=== PATIENT | female | born 1965 | race Caucasian/White ===

== ENCOUNTER 2019-09-07 16:10 | Emergency (ER) | payer OTHER, SELFPAY ==
[2019-09-07 16:20] VITALS: BP 136/77; PULSE 88; RESP 20; TEMP 37.1; O2SAT 99
--- NOTE | 2019-09-07 16:23 | ED.URI ---
HPI - URI/Sore Throat General Chief Complaint: Upper Respiratory Infection Stated Complaint: chest cold Time Seen by Provider: 09/07/19 16:23 Source: patient and RN notes reviewed History of Present Illness HPI Narrative: Patient is a 53-year-old female presents the urgent care with complaints of cough, chest cold. Patient states that started 2 days ago and she has a history of pneumonia and asthma. States that she has been using her inhaler and nebulizer as needed. States that the cough is productive brown-yellow. Denies of any fever. States that her grandson was diagnosed with strep and she has been having a sore throat. No other acute complaints. No acute distress noted. Patient read the plan of care. Related Data Home Medications Medication Instructions Recorded Confirmed Bacillus coagulans 10 billion cell 1 cell PO DAILY 07/30/19 09/07/19 capsule,delayed release albuterol sulfate 90 mcg/actuation 1 puff INHALATION Q4H 07/30/19 09/07/19 aerosol inhaler budesonide-formoterol HFA 160 2 puff INHALATION Q12H 07/30/19 09/07/19 mcg-4.5 mcg/actuation aerosol inhaler famotidine 20 mg tablet 20 mg PO DAILY 07/30/19 09/07/19 hydrochlorothiazide 12.5 mg tablet 12.5 mg PO DAILY 07/30/19 09/07/19 montelukast 10 mg tablet 10 mg PO DAILY 07/30/19 09/07/19 terbutaline 5 mg tablet 5 mg PO TID tablet 07/30/19 09/07/19 trazodone 100 mg tablet 100 mg PO .QHS tablet 07/30/19 09/07/19 albuterol sulfate 2.5 mg INHALATION Q4H PRN 09/07/19 09/07/19 atorvastatin 40 mg PO DAILY 09/07/19 09/07/19 azelastine 1 spray INTRANASAL Q12H 09/07/19 09/07/19 budesonide-formoterol [Symbicort] 2 puff INHALATION Q12H 09/07/19 09/07/19 topiramate 25 mg PO DAILY 09/07/19 09/07/19 Allergies Allergy/AdvReac Type Severity Reaction Status Date / Time lorazepam Allergy Unknown Dizziness Verified 09/07/19 16:31 Review of Systems Review of Systems: Narrative: CONSTITUTIONAL: Denies fever, chills, or sweats. EYES: Denies visual changes, redness, or discharge. ENT: Reports of sore throat CARDIOVASCULAR: Denies chest pain, palpitations, or edema. RESPIRATORY: Reports a productive cough with intermittent dyspnea and wheezing GASTROINTESTINAL: Denies abdominal pain, nausea, vomiting, or diarrhea. GENITOURINARY: Denies dysuria or hematuria. SKIN: Denies rash or itching. MUSCULOSKELETAL: Denies back pain, joint pain, or myalgia. NEUROLOGIC: Denies headache, numbness, or weakness. All other systems reviewed are negative, except as documented in HPI. [facility] Past Medical History Medical History (Updated 09/07/19 @ 17:01 by KAMERON Damian) Dysfunction of both eustachian tubes Essential (primary) hypertension MDD (major depressive disorder), recurrent episode, moderate Mild persistent asthma with allergic rhinitis without complication Pollen allergies Psychophysiological insomnia Family History Family History (Updated 09/03/17 @ 14:25 by DOCTOR UNKNOWN) Father Patient's father is , Onset Age: 57 Mother Family history of cardiovascular disease, Onset Age: 56 Social History Social History (Updated 08/03/19 @ 09:41 by Lyubov Hodge) Smoking packs per day: 1.5 Smoking cigarettes per day: 30.0 Years smoked: 5 Smoking pack-years: 7.50 Smoking status: Former smoker Tobacco type: cigarettes Second hand tobacco smoke exposure: No Alcohol intake: never Substance use: never Substance use type: does not use Gender identity (if verbalized by the patient): Female Comments At the time of my signature, I reviewed and agree with the nursing past medical, surgical, social, and family history. There is no relevant family history pertinent to the patient complaint. Exam Narrative: Exam Narrative: GENERAL: This is a well-nourished, well-developed patient, in no apparent distress. HEAD: normocephalic, atraumatic. EYES: PERRL. Sclera clear/white. Vision is grossly intact. EARS: External ear
== END 2019-09-07 17:05 | disposition home or self-care (01) ==
PROVIDERS: Emergency Provider Nurse Practitioner Family; PCP Family Medicine
DX: J40 Bronchitis, not specified as acute or chronic (principal); Z87.891 Personal history of nicotine dependence
CPT/HCPCS: 87081; 87880; 99213; G0463

== ENCOUNTER 2019-09-11 10:50 | Emergency (ER) | payer OTHER, SELFPAY ==
[2019-09-11 10:58] VITALS: BP 124/75; PULSE 71; RESP 20; TEMP 36.6; O2SAT 98
--- NOTE | 2019-09-11 11:21 | ED.URI ---
HPI - URI/Sore Throat General Chief Complaint: Upper Respiratory Infection Stated Complaint: cough Time Seen by Provider: 09/11/19 11:15 Source: patient Mode of arrival: ambulatory Limitations: no limitations History of Present Illness HPI Narrative: Wendi Neal is a 53 yo female with a PMH of HTN, asthma, high cholesterol, who comes to the doctor's office with complaints of continued cough. Afebrile. Was seen here on Saturday Related Data Home Medications Medication Instructions Recorded Confirmed Bacillus coagulans 10 billion cell 1 cell PO DAILY 07/30/19 09/11/19 capsule,delayed release albuterol sulfate 90 mcg/actuation 1 puff INHALATION Q4H 07/30/19 09/11/19 aerosol inhaler budesonide-formoterol HFA 160 2 puff INHALATION Q12H 07/30/19 09/11/19 mcg-4.5 mcg/actuation aerosol inhaler famotidine 20 mg tablet 20 mg PO DAILY 07/30/19 09/11/19 hydrochlorothiazide 12.5 mg tablet 12.5 mg PO DAILY 07/30/19 09/11/19 montelukast 10 mg tablet 10 mg PO DAILY 07/30/19 09/11/19 terbutaline 5 mg tablet 5 mg PO TID tablet 07/30/19 09/11/19 trazodone 100 mg tablet 100 mg PO .QHS tablet 07/30/19 09/11/19 albuterol sulfate 2.5 mg INHALATION Q4H PRN 09/07/19 09/11/19 atorvastatin 40 mg PO DAILY 09/07/19 09/11/19 azelastine 1 spray INTRANASAL Q12H 09/07/19 09/11/19 budesonide-formoterol [Symbicort] 2 puff INHALATION Q12H 09/07/19 09/11/19 topiramate 25 mg PO DAILY 09/07/19 09/11/19 Allergies Allergy/AdvReac Type Severity Reaction Status Date / Time lorazepam Allergy Unknown Dizziness Verified 09/07/19 16:31 Review of Systems Review of Systems: Narrative: CONSTITUTIONAL: Denies fever, chills, sweats. EYES: Denies visual changes, redness, discharge. ENT: Denies rhinorrhea, congestion, sore throat, otalgia. CARDIOVASCULAR: Denies chest pain, palpitations, edema. RESPIRATORY: Denies dyspnea, wheezing, has cough GASTROINTESTINAL: Denies abdominal pain, nausea, vomiting, diarrhea. GENITOURINARY: Denies dysuria, hematuria, abnormal discharge SKIN: Denies rash or itching. NEUROLOGIC: Denies numbness, or focal weakness. PSYCHIATRIC: Denies anxiety or depression. [facility] Past Medical History Medical History Dysfunction of both eustachian tubes Essential (primary) hypertension MDD (major depressive disorder), recurrent episode, moderate Mild persistent asthma with allergic rhinitis without complication Pollen allergies Psychophysiological insomnia Family History Family History Father Patient's father is , Onset Age: 57 Mother Family history of cardiovascular disease, Onset Age: 56 Social History Social History Smoking packs per day: 1.5 Smoking cigarettes per day: 30.0 Years smoked: 5 Smoking pack-years: 7.50 Smoking status: Former smoker Tobacco type: cigarettes Second hand tobacco smoke exposure: No Alcohol intake: never Substance use: never Substance use type: does not use Gender identity (if verbalized by the patient): Female Comments At time of signature, I agree with nursing past medical, surgical, social and family history. There is no relevant family history pertinent to the presenting complaint. Exam Narrative: Exam Narrative: GENERAL: This is a well-nourished, well-developed patient, in mild distress. HEAD: normocephalic, atraumatic. EYES: Sclera clear/white. Vision is grossly intact. EARS: External ears normal, auditory canals clear and without drainage, TMs normal without perforation. Hearing grossly intact. NOSE: External nose normal with no obvious nasal discharge, nares without redness, has rhinorrhea. THROAT: Mucous membranes moist, posterior pharynx mild erythema NECK: Neck supple, non-tender CARDIOVASCULAR: Regular rate and rhythm without murmurs, gallops, or rubs. RESPIR
== END 2019-09-11 11:40 | disposition home or self-care (01) ==
PROVIDERS: Emergency Provider Nurse Practitioner; PCP Family Medicine
DX: J10.1 Influenza due to other identified influenza virus with other respiratory manifestations (principal); Z87.891 Personal history of nicotine dependence; I10 Essential (primary) hypertension; J45.909 Unspecified asthma, uncomplicated; E78.00 Pure hypercholesterolemia, unspecified
CPT/HCPCS: 87804; 99213; G0463

== ENCOUNTER 2020-02-15 10:39 | Outpatient (CLI) | payer OTHER, SELFPAY ==
[2020-02-15 10:54] LABS: Hematocrit 36.2 % (37.0-47.0); Hemoglobin 11.8 g/dL (12.0-15.0); Mean Corpuscular HGB Conc 32.6 g/dl (32-36); Mean Corpuscular Hemoglobin 29.1 pg (26-34); Mean Corpuscular Volume 89.4 fl (80-100); Mean Platelet Volume 10.1 fl (7.4-10.4); Platelet Count Result 403 k/mm3 (150-375); Red Blood Count 4.05 M/mm3 (4.2-5.4); Red Cell Distribution Width 13.1 % (11.5-14.5); White Blood Count 6.8 K/mm3 (4.5-10.0)
[2020-02-15 11:09] LABS: Alanine Aminotransferase 39 U/L (4-35); Albumin Level 4.4 g/dL (3.5-5.1); Alkaline Phosphatase 69 U/L (38-126); Anion Gap 6 mmol/L (8-16); Aspartate Amino Transferase 32 U/L (14-36); Bilirubin,Total 0.2 mg/dL (0.2-1.3); Blood Urea Nitrogen 10 mg/dL (7-17); Calcium 9.2 mg/dL (8.4-10.2); Carbon Dioxide 26 mmol/L (22-30); Chloride 106 mmol/L (98-107); Cholesterol 145 mg/dL (0-200); Estimated Glomerular Filt Rate > 60; Glucose 114 mg/dL (65-105); HDL Direct 66 mg/dL; Potassium 4.2 mmol/L (3.4-5.0); Sodium 138 mmol/L (137-145); Triglycerides 101 mg/dL (<150)
[2020-02-15 11:14] LABS: Hemoglobin A1C 5.7 % (<5.7)
[2020-02-15 11:20] LABS: LDL Cholesterol Direct 53 mg/dL
== END 2020-02-15 10:40 | disposition home or self-care (01) ==
PROVIDERS: PCP Family Medicine; Visit Provider Family Medicine
DX: E78.2 Mixed hyperlipidemia (principal); J45.30 Mild persistent asthma, uncomplicated; I10 Essential (primary) hypertension; E66.01 Morbid (severe) obesity due to excess calories; Z68.41 Body mass index [BMI] 40.0-44.9, adult; Z13.1 Encounter for screening for diabetes mellitus
CPT/HCPCS: 36415; 80053; 80061; 83036; 85027

== ENCOUNTER 2020-03-25 13:22 | Emergency (ER) | payer OTHER, SELFPAY ==
[2020-03-25 13:27] VITALS: BP 145/74; PULSE 75; RESP 14; TEMP 36.6; O2SAT 97
--- NOTE | 2020-03-25 13:31 | ED.URI ---
HPI - URI/Sore Throat General Chief Complaint: Upper Respiratory Infection Stated Complaint: sore throat/chest congestion Time Seen by Provider: 03/25/20 13:31 Source: patient and RN notes reviewed History of Present Illness HPI Narrative: Patient is a 54-year-old female who presents the urgent care with complaints of a sore throat that started on Saturday. Patient states that today she now has a clear productive cough and runny nose. Patient denies any fever, chills, nausea, vomiting. States that she has been doing salt water gargles for the sore throat. No other acute complaints. No acute distress noted. Patient aware of the plan of care. Patient Related Data Home Medications Medication Instructions Recorded Confirmed albuterol sulfate 90 mcg/actuation 1 puff INHALATION Q4H 07/30/19 02/15/20 aerosol inhaler Allergies Allergy/AdvReac Type Severity Reaction Status Date / Time lorazepam Allergy Unknown Dizziness Verified 03/25/20 13:34 Review of Systems Review of Systems: Narrative: CONSTITUTIONAL: Denies fever, chills, or sweats. EYES: Denies visual changes, redness, or discharge. ENT: Reports of sore throat and rhinorrhea CARDIOVASCULAR: Denies chest pain, palpitations, or edema. RESPIRATORY: Reports a clear productive cough GASTROINTESTINAL: Denies abdominal pain, nausea, vomiting, or diarrhea. GENITOURINARY: Denies dysuria or hematuria. SKIN: Denies rash or itching. MUSCULOSKELETAL: Denies back pain, joint pain, or myalgia. NEUROLOGIC: Denies headache, numbness, or weakness. All other systems reviewed are negative, except as documented in HPI. [facility] Social History Social History (Updated 02/15/20 @ 09:40 by Lyubov Hodge) Social History: Smoking packs per day: 1.5 Smoking cigarettes per day: 30.0 Years smoked: 5 Smoking pack-years: 7.50 Smoking status: Former smoker Tobacco type: cigarettes Second hand tobacco smoke exposure: No Alcohol intake: never Substance use: never Substance use type: does not use Gender identity (if verbalized by the patient): Female Comments At the time of my signature, I reviewed and agree with the nursing past medical, surgical, social, and family history. There is no relevant family history pertinent to the patient complaint. Exam Narrative: Exam Narrative: GENERAL: This is a well-nourished, well-developed patient, in no apparent distress. HEAD: normocephalic, atraumatic. EYES: PERRL. Sclera clear/white. Vision is grossly intact. EARS: External ears normal, auditory canals clear and without drainage, TMs normal without perforation. Hearing grossly intact. NOSE: External nose normal with no obvious nasal discharge, nares without redness, no rhinorrhea. THROAT: Mucous membranes moist, posterior pharynx clear. Moderate postnasal drainage NECK: Neck supple, CARDIOVASCULAR: Regular rate and rhythm without murmurs, gallops, or rubs. RESPIRATORY: Clear to auscultation. Breath sounds equal bilaterally. No wheezes, rales, or rhonchi. SKIN: warm, intact with no suspicious lesions or rash, good texture and turgor. NEURO: awake, alert, and oriented to person, place and time. There were no obvious focal neurologic abnormalities. EXTREMITIES: No clubbing, cyanosis, or edema. Course Vital Signs Vital signs: Vital Signs Temperature 97.8 F 03/25/20 13:27 Pulse Rate 75 03/25/20 13:27 Respiratory Rate 14 03/25/20 13:27 Blood Pressure 145/74 H 03/25/20 13:27 Pulse Oximetry 97 03/25/20 13:27 Temperature 97.8 F 03/25/20 13:27 Pulse Rate 75 03/25/20 13:27 Respiratory Rate 14 03/25/20 13:27 Blood Pressure 145/74 H 03/25/20 13:27 Pulse Oximetry 97 03/25/20 13:27 Reviewed-patient is informed that they may have pre-hypertension or hypertension based on a blood pressure reading in the department. I recommend the patient call the primary care provider listed on their discharge instructions or a physician of their cho
== END 2020-03-25 13:50 | disposition home or self-care (01) ==
PROVIDERS: Emergency Provider Nurse Practitioner Family; PCP Family Medicine
DX: J02.9 Acute pharyngitis, unspecified (principal); Z87.891 Personal history of nicotine dependence; I10 Essential (primary) hypertension; J45.909 Unspecified asthma, uncomplicated; K21.9 Gastro-esophageal reflux disease without esophagitis; F41.9 Anxiety disorder, unspecified
CPT/HCPCS: 87081; 87880; 99213; G0463

== ENCOUNTER 2020-05-30 13:47 | Emergency (ER) | payer OTHER, SELFPAY ==
--- NOTE | ~2020-05-30 | XR_ITS ---
EXAMINATION: XR chest 1V portable DATE: 05/30/2020 15:04 INDICATION: Shortness of breath. COVID-19 positive. TECHNIQUE: A single frontal view of the chest was obtained. COMPARISON: Chest 2 views 08/03/2019 FINDINGS: There is mild atelectasis at left lung base. No pleural effusion or pneumothorax. The heart size is normal. IMPRESSION: 1. Mild atelectasis at left lung base. Reviewed, dictated and finalized at location A. [facility] LINE SERVICE ATTENDANT
[2020-05-30 13:50] VITALS: BP 144/76; PULSE 86; RESP 18; TEMP 36.9; O2SAT 97
--- NOTE | 2020-05-30 13:54 | ECG_ITS ---
Measurements Intervals [place] Rate: 76 P: 22 UT: 174 QRS: -22 QRSD: 91 T: 37 QT: 370 QTc: 417 Interpretive Statements SINUS RHYTHM VOLTAGE CRITERIA FOR LVH BORDERLINE R WAVE PROGRESSION, ANTERIOR LEADS BORDERLINE ECG Electronically Signed On 05-30-2020 14:09:24 [employer]GET[employer] I [employer] by Sage Prajapati D.O.
[2020-05-30 14:21] LABS: Basophils Percent Auto 0.3 % (0.2-1.2); Hematocrit 36.6 % (37.0-47.0); Hemoglobin 12.1 g/dL (12.0-15.0); Immature Granulocyte Absolute 0.02 K/mm3 (0.00-0.031); Immature Granulocyte Percent A 0.3 % (0-0.5); Lymphocytes Absolute Auto 0.69 K/mm3 (0.9-3.2); Lymphocytes Percent Auto 10.2 % (18.3-44.2); Mean Corpuscular HGB Conc 33.1 g/dl (32-36); Mean Corpuscular Hemoglobin 29.1 pg (26-34); Mean Platelet Volume 9.7 fl (7.4-10.4); Monocytes Absolute Auto 0.2 K/mm3 (0.1-0.6); Monocytes Percent Auto 2.5 % (2.6-8.5); Neutrophils Absolute Auto 5.8 K/mm3 (1.3-6.7); Neutrophils Percent Auto 86.7 % (45.5-73.1); Platelet Count Result 433 k/mm3 (150-375); Red Blood Count 4.16 M/mm3 (4.2-5.4); Red Cell Distribution Width 13.9 % (11.5-14.5); White Blood Count 6.7 K/mm3 (4.5-10.0)
[2020-05-30 14:31] VITALS: BP 158/99; PULSE 83; RESP 20; O2SAT 94
[2020-05-30 14:35] LABS: Anion Gap 11 mmol/L (8-16); Blood Urea Nitrogen 12 mg/dL (7-17); Calcium 9.3 mg/dL (8.4-10.2); Carbon Dioxide 26 mmol/L (22-30); Chloride 103 mmol/L (98-107); Estimated CRCL calculation 78 ml/min; Estimated Glomerular Filt Rate > 60; Glucose 158 mg/dL (65-105); Potassium 4.3 mmol/L (3.4-5.0); Sodium 140 mmol/L (137-145)
[2020-05-30] MEDS: SODIUM CHLORIDE 0.9% IV 1,000 ML 999 ML IV CONT (15:04)
--- NOTE | 2020-05-30 15:08 | ED.GENADULT ---
HPI - General Adult General Chief complaint: Shortness of Breath/Dyspnea <Brenden Dupree PA-C - Last Filed: 05/30/20 16:29> Stated complaint: SOB, COVID Positive <Brenden Dupree PA-C - Last Filed: 05/30/20 16:29> Time Seen by Provider: 05/30/20 14:27 <Brenden Dupree PA-C - Last Filed: 05/30/20 16:29> Source: patient <Brenden Dupree PA-C - Last Filed: 05/30/20 16:29> Mode of arrival: ambulatory <Brenden Dupree PA-C - Last Filed: 05/30/20 16:29> Limitations: no limitations <Brenden Dupree PA-C - Last Filed: 05/30/20 16:29> History of Present Illness HPI narrative: Patient is a 54-year-old female who presents with shortness of breath weakness noting that she has been Covid positive for 2 weeks patient notes that she completed a Z-Silver and has been taking other medications with minimal improvement patient notes she has had some nausea but denies emesis or loose stools history of asthma presents in no distress appears uncomfortable does note some aching pain across the chest <Brenden Dupree PA-C - Last Filed: 05/30/20 16:29> Related Data Home medications: Home Medications Medication Instructions Recorded Confirmed albuterol sulfate 90 mcg/actuation 1 puff INHALATION Q4H 07/30/19 03/25/20 aerosol inhaler <Brenden Dupree PA-C - Last Filed: 05/30/20 16:29> Allergies/adverse reactions: Allergies Allergy/AdvReac Type Severity Reaction Status Date / Time lorazepam Allergy Unknown Dizziness Verified 03/25/20 13:34 <Brenden Dupree PA-C - Last Filed: 05/30/20 16:29> Review of Systems Review of Systems: All systems reviewed & are unremarkable except as noted in HPI and below <Brenden Dupree PA-C - Last Filed: 05/30/20 16:29> PMFSH Past Medical History Medical History: Medical History (Updated 05/30/20 @ 16:19 by Brenden Dupree PA-C) Dysfunction of both eustachian tubes Essential (primary) hypertension MDD (major depressive disorder), recurrent episode, moderate Mild persistent asthma with allergic rhinitis without complication Pollen allergies Psychophysiological insomnia <Brenden Dupree PA-C - Last Filed: 05/30/20 16:29> Family History Family History: Family History Father Patient's father is , Onset Age: 57 Mother Family history of cardiovascular disease, Onset Age: 56 <Brenden Dupree PA-C - Last Filed: 05/30/20 16:29> Social History Social History: Social History Social History: Smoking packs per day: 1.5 Smoking cigarettes per day: 30.0 Years smoked: 5 Smoking pack-years: 7.50 Smoking status: Former smoker Tobacco type: cigarettes Second hand tobacco smoke exposure: No Alcohol intake: never Substance use: never Substance use type: does not use Gender identity (if verbalized by the patient): Female <Brenden Dupree PA-C - Last Filed: 05/30/20 16:29> Exam Narrative: Exam Narrative: GENERAL: Well-appearing, well-nourished, and in no acute distress. HEAD: Normocephalic, atraumatic. EYES: PERRLA and EOMI. ENT: Nares clear, no rhinorrhea or epistaxis. Mucous membranes moist. CHEST: Clear to auscultation. No respiratory distress. Slight crackles in the lung bases HEART: Regular rate and rhythm. No murmur heard. Normal peripheral pulses. EXTREMITIES: Normal range of motion. No edema. SKIN: Warm, dry, no rash. NEURO: No focal deficits. Alert and oriented x3. PSYCH: Normal mood and affect. <Brenden Dupree PA-C - Last Filed: 05/30/20 16:29> Course Course Emergency Course: Patient in the room in no distress aware of case findings treatment plan diagnosis was treated in the emergency department to include fluid and steroid will be discharged home has inhaler no pneumonia no hypoxemia ABCs stable Case discussed wit
[2020-05-30 15:32] LABS: INR 0.9; Prothrombin Time 12.4 Seconds (11.1-14.7)
[2020-05-30 15:33] LABS: Partial Thromboplastin Time 25.9 SECONDS (22.3-36.8)
[2020-05-30 15:38] LABS: D Dimer 0.27 ug/mL (<0.48)
[2020-05-30 15:40] LABS: Troponin I < 0.012 ng/mL (0.000-0.034)
[2020-05-30 16:27] VITALS: BP 144/81; PULSE 78; RESP 18
[2020-05-30] MEDS: DEXAMETHASONE SOD PHOS INJ 4 MG/ML VIAL 10 MG IV PUSH (16:27)
== END 2020-05-30 17:21 | disposition home or self-care (01) ==
PROVIDERS: Emergency Medicine; Emergency Medicine Emergency Medical Services; Emergency Provider Emergency Medicine
DX: U07.1 COVID-19 (principal); I10 Essential (primary) hypertension; Z87.891 Personal history of nicotine dependence; J45.30 Mild persistent asthma, uncomplicated; R94.31 Abnormal electrocardiogram [ECG] [EKG]
CPT/HCPCS: 36415; 71045; 80048; 84484; 85025; 85380; 85610; 85730; 93005; 96361; 96374; 99284; J1100; J7030

== ENCOUNTER 2022-10-14 11:39 | Emergency (ER) | payer OTHER, MEDICAID, SELFPAY ==
[2022-10-14 11:46] VITALS: BP 113/91; PULSE 86; RESP 20; TEMP 36.8; O2SAT 99
[2022-10-14 12:02] LABS: Appearance Urine Clear (Clear); Bacteria Urine None Seen /hpf; Bilirubin Urine Negative (Negative); Blood Urine Negative (Negative); Color Urine Dark Yellow (Yellow); Glucose Urine UA Negative (Negative); Ketones Urine Negative (Negative); Leukocyte Esterase Ur 1+ LEU/UL (Negative); Need Manual Microscopic Reviewed; Nitrate Urine Negative (Negative); Protein Urine 1+ mg/dL (Negative); Specific Grav Ur 1.023 (1.001-1.035); Squamous Epithelial Cell Urine None seen /hpf (Few)
[2022-10-14 12:11] LABS: Add Urine Microscopic? YES
--- NOTE | 2022-10-14 13:07 | ED.FEMALEGU ---
HPI - Female Genitourinary General Chief complaint: Urogenital-Female Stated complaint: urinary symptoms Time Seen by Provider: 10/14/22 12:19 Source: patient Mode of arrival: ambulatory Limitations: no limitations History of Present Illness HPI Narrative: 56 years old white female drove herself to the emergency room complaining of bleeding when wiping and burning when peeing. Patient been using Monistat at home for 1 week without improvement. Patient reported brown vaginal discharge with severe itching. History of hysterectomy, , not sexually active for months. MD elicited complaint: dysuria, UTI and genital itching Related Data Home Medications Medication Instructions Recorded Confirmed albuterol sulfate 90 mcg/actuation 1 puff inhalation Q4H 07/30/19 03/25/20 aerosol inhaler (ProAir HFA) Allergies Allergy/AdvReac Type Severity Reaction Status Date / Time lorazepam Allergy Unknown Dizziness Verified 10/14/22 11:51 Review of Systems Review of Systems: All systems reviewed & are unremarkable except as noted in HPI and below PMFSH Past Medical History Medical History Dysfunction of both eustachian tubes Essential (primary) hypertension MDD (major depressive disorder), recurrent episode, moderate Mild persistent asthma with allergic rhinitis without complication Pollen allergies Psychophysiological insomnia Family History Family History Father Patient's father is , Onset Age: 57 Mother Family history of cardiovascular disease, Onset Age: 56 Social History Social History Social History: Smoking packs per day: 1.5 Smoking cigarettes per day: 30.0 Years smoked: 5 Smoking pack-years: 7.50 Smoking status: Former smoker Tobacco type: cigarettes Second hand tobacco smoke exposure: No Alcohol intake: never Substance use: never Substance use type: does not use Living arrangements: with family Occupation/Education: occupation Gender identity (if verbalized by the patient): Female Sexual Orientation (if Verbalized by the Patient): Straight or Heterosexual Exam Narrative: General appearance: Well-developed, well-nourished Skin: Normal color Chest and respiratory: Airway patent, no respiratory distress, no accessory muscle use Heart: Regular rate/rhythm Abdomen: Soft, nontender, no organomegaly, quiet bowel sounds Neurologic: Alert and oriented ?3, PRACTICE NURSE is normal as tested, no gross motor deficit : Speculum Exam - Vagina: abnormal vaginal discharge (Whitish discharge) white and clear Speculum Exam - Cervix: Cervical os closed ( status post hysterectomy) Course Reevaluation(s) Reevaluation #1: No new changes Date: 10/14/22 Time: 13:45 Vital Signs Vital signs: Vital Signs Temperature 36.8 C 10/14/22 11:46 Pulse Rate 86 10/14/22 11:46 Respiratory Rate 20 10/14/22 11:46 Blood Pressure 113/91 H 10/14/22 11:46 Pulse Oximetry 99 10/14/22 11:46 Oxygen Delivery Room Air 10/14/22 11:46 Temperature 36.8 C 10/14/22 11:46 Pulse Rate 86 10/14/22 11:46 Respiratory Rate 20 10/14/22 11:46 Blood Pressure 113/91 H 10/14/22 11:46 Pulse Oximetry 99 10/14/22 11:46 Oxygen Delivery Room Air 10/14/22 11:46 MDM - Female Genitourinary MDM Narrative Medical decision making narrative: Patient presents with itching, abnormal discharge, whitish, grayish, history of hysterectomy, not sexually active, burning urination. Differential diagnosis i
== END 2022-10-14 13:55 | disposition home or self-care (01) ==
PROVIDERS: Emergency Medicine; Emergency Provider Emergency Medicine; PCP Physician Assistant
DX: N39.0 Urinary tract infection, site not specified (principal); N89.8 Other specified noninflammatory disorders of vagina; I10 Essential (primary) hypertension; J45.30 Mild persistent asthma, uncomplicated; Z79.51 Long term (current) use of inhaled steroids; F33.1 Major depressive disorder, recurrent, moderate; Z87.891 Personal history of nicotine dependence
CPT/HCPCS: 81001; 87086; 87088; 99283

== ENCOUNTER 2024-08-06 17:13 | Emergency (ER) | payer OTHER, SELFPAY ==
--- OUTSIDE RECORDS SUMMARY | 2024-08-06 17:15 | XMS_ITS | Encounter Summary ---
Author Organization [facility] Address [address] [facility] [address] Phone Care Team Providers Care Master Deputy Sheriff Court Security Name Role Phone Kiera Salinas PAC Primary Care Pro vider Susanna Ba SHOE COVERER, MANAGER JAVA Unavailable Reason for Referral * Radiology Services (Routine) - Closed Specialty Diagnoses / Procedures Referred By Suha talavera Referred To Contact Radiology Diagnoses Pre-op testing Procedures XR CHEST 2 VIEWS Sebastian Cadena MD [address] [place] [address] Phone: tel: fax: Referral ID Status Reason Start Date Expiration Date Visits Re quested Visits Authorized [id number] Closed 10/08/2023 1 1 * Radiology Services (Routine) - Closed Specialty Diagnoses / Procedures Referred By Suha talavera Referred To Contact Radiology Diagnoses Pre-op testing Procedures EKG 12 LEAD Sebastian Cadena MD [address] [place] [address] Phone: tel: fax: Referral ID Status Reason Start Date Expiration Date Visits Re quested Visits Authorized [id number] Closed 10/08/2023 1 1 Encounter Details Date Type Department Care Team (Latest Contact Info) Description 10/08/2023 Transcribe Orders [facility] Preop/Pacu II [address] [place] [address] Sebastian Cadena MD [address] [place] [address] Pre-op testing (Primary Dx) Social History Tobacco Use Types Packs/Day Years Used Date Smoking Tobacco: Former Cigarettes 0.5 7 Passive Smoke Exposure: Past Smokeless Tobacco: Never Comments:30 yrs ago Alcohol Use Standard Drinks/Week Comments No 0 (1 standard drink = 0.6 oz pur e alcohol) Personal Choice [facility] Utilities Answer Date Recorded In the past 12 months has [employer], gas, oil, or water company threatened to shut off services in your home? No 09/16/2023 Social Connection and Isolat ion Panel [NHANES] Answer Date Recorded In a typical week, how many times do you talk on the phone with family, friends, or neighbors? More than three times a week 09/16/2023 How often do you get togethe r with friends or relatives? More than three times a week 09/16/2023 How often do you attend chur ch or muslim services? More than 4 times per year 09/16/2023 Do you belong to any clubs o r organizations such as yarsani groups, unions, fraternal or athletic groups, or school groups? Yes 09/16/2023 How often do you attend meet ings of the clubs or organizations you belong to? More than 4 times per year 09/16/2023 Are you , , di vorced, , never , or living with a partner? 09/16/2023 AUDIT-C Answer Date Recorded Q1: How often do you have a drink containing alc ohol? 2-4 times a month 09/16/2023 Q2: How many drinks containi ng alcohol do you have on a typical day when you are drinking? 1 or 2 09/16/2023 Q3: How often do you have si x or more drinks on one occasion? Less than monthly 09/16/2023 Overall Financial Resource Strain (CARDIA) Answe r Date Recorded How hard is it for you to pa y for the very basics like food, housing, medical care, and heating? Not very hard 09/16/2023 PHQ-2 Answer Date Recorded Total Score - Questions 1-9 15 07/2022 [facility] - Occupational Stress Questionnaire Answer Date Recorded Do you feel stress - tense, restless, nervous, or anxious, or unable to sleep at night because your mind is troubled all the time - these days? To some extent 09/16/2023 Exercise Vital Sign Answer Date Recorde d On average, how many days pe r week do you engage in moderate to strenuous exercise (like a brisk walk)? 3 days 09/16/2023 On average, how many minutes do you engage in exercise at this level? 50 min 09/16/2023 Hunger Vital Sign Answer Date Recorded Within the past 12 months, y ou worried that your food would run out before you got the money to buy more. Never true 09/16/19 24 Within the past 12 months, t he food you bought just didn't last and you didn't have money to get more. Never true 09/16/2023 PRAPARE - Transportation Answer Date Re corded In the past 12 months, has l ack of transportation kept you from medical appointments or from getting medications? No 09/05 In the past 12 months, has l ack of transportation kept you from meetings, work, or from getting things needed for daily living? No 09/16/2023 Housing Stability Vital Sign Answer Dustin e Recorded In the last 12 months, was t here a time when you were not able to pay the mortgage or rent on time? No 09/16/2023 In the last 12 months, how many places have you lived? 2 09/16/2023 In the last 12 months, was t here a time when you did not have a steady place to sleep or slept in a penitentiary (including now)? No 09/16/2023 Education Answer Date Recorded What is the highest level of school you have completed or the highest degree you have received? 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 Author I want to work through my grief for my . Behavioral Health Improving(09/2022 11:11 AM CDT) Yes Tamika Madison, THELMA Note: Goal/Objective: Improve coping with grief related issues. Anticipated Time Frame for Goal Completion: 5 months Goal Reviewed with: patient Readiness to change: Ready to change Department associated with goal: [facility] Steps to achieve goal: 1. will attend at least 6 counseling sessions either individual and/or group 1x/mo, engaging in each session by verbalizing and processing thoughts and feelings related to grief and loss. 2. will report reduced feelings of guilt and resentment. 3. will identify and implement at least two outlets for grief and or coping skills to aid in managing problematic responses to grief. documented as of this encounter Results * XR CHEST 2 VIEWS (10/24/2023 12:49 PM CDT) Anatomical Region Laterality Modality Chest N/A Digital Radiogra phy 10/25/2023 8:48 AM CDT Impressions 10/25/2023 8:51 AM CDT IMPRESSION: No acute cardiopulmonary abnormality. Narrative 10/25/2023 8:51 AM CDT EXAM DESCRIPTION: XR CHEST 2 VIEWS REASON FOR STUDY: pre op shoulder. asthma. no chest surgery, nonsmoker ?? TECHNIQUE: PA and lateral ??radiographic view(s) of the chest. COMPARISON: 05/29/2022, 01/10/2022 FINDINGS: LUNGS: ??No focal consolidation. ??No effusion or pneumothorax. ?? HEART/MEDIASTINUM: ??Cardiac silhouette normal in size. Mediastinal and hilar contours appear normal. LINES/TUBES: ??None. BONES: ??Degenerative changes. ??No acute process. THIS IS AN ELECTRONICALLY VERIFIED FINAL REPORT 10/25/2023 8:48 AM - Electronically signed by ??Shauna Kimbrough M.D. TW: TW D: ??10/25/2023 8:48 AM T: ??10/25/2023 8:48 AM Report ID: [id number] Reading Location: ??[id number] Procedure Note Shauna Kimbrough MD - 10/25/2023 EXAM DESCRIPTION: XR CHEST 2 VIEWS REASON FOR STUDY: pre op shoulder. asthma. no chest surgery, nonsmoker TECHNIQUE: PA and lateral radiographic view(s) of the chest. COMPARISON: 05/29/2022, 01/10/2022 FINDINGS: LUNGS: No focal consolidation. No effusion or pneumothorax. HEART/MEDIASTINUM: Cardiac silhouette normal in size. Mediastinal and hilar contours appear normal. LINES/TUBES: None. BONES: Degenerative changes. No acute process. THIS IS AN ELECTRONICALLY VERIFIED FINAL REPORT 10/25/2023 8:48 AM - Electronically signed by Shauna Kimbrough M.D. TW: Report ID: [id number] Reading Location: [id number] IMPRESSION: No acute cardiopulmonary abnormality. Sebastian Cadena MD IMG DIAGNOSTIC ORDERABLES Final Result * EKG 12 LEAD (10/24/2023 12:30 PM CDT) Ventricular Rate 69 BPM EXTERNAL EKG Atrial Rate 69 BPM EXTERNAL EKG P-R Interval 168 ms EXTERNAL EKG QRS Duration 84 ms EXTERNAL EKG Q-T Duration 400 ms EXTERNAL EKG QTC CALCULATION 428 ms EXTERNAL EKG P Arnett 3 degrees EXTERNAL EKG R Arnett -4 degrees EXTERNAL EKG T Arnett 50 degrees EXTERNAL EKG 10/24/2023 12:3 0 PM CDT Impressions EXTERNAL EKG - 10/24/2023 6:20 PM CDT Normal sinus rhythm Normal ECG When compared with ECG of 10-JAN-2022 17:02, No significant change was found ~ Confirmed by Lupillo Snell ([id number]) on 10/24/2023 6:20:19 PM Narrative Procedure Note Lupillo Snell MD - 10/24/2023 IMPRESSION: Normal sinus rhythm Normal ECG When compared with ECG of 10-JAN-2022 17:02, No significant change was found ~ Confirmed by Lupillo Snell ([id number]) on 10/24/2023 6:20:19 PM us Sebastian Cadena MD IMG ECG ORDERABLES Final Result EXTERNAL EKG documented in this encounter Visit Diagnoses Diagnosis Pre-op testing- Primary Preoperative examination, unspecified Pre-op testing Preoperative examination, unspecified Pre-op testing Preoperative examination, unspecified documented in this encounter Additional Health Concerns Infection Onset Date Last Indicated Resolved Time Respiratory Rule-Out 10/15/2023 10/15/2023 024 1:49 PM CDT COVID - 19 10/15/2023 10/15/2023 10/15/2023 1:48 PM CDT Respiratory Rule-Out 05/21/2024 05/21/2024 024 12:52 PM CERAMICS TECHNICIAN COVID - 19 05/21/2024 05/21/2024 05/21/2024 12:5 1 PM CERAMICS TECHNICIAN COVID - 19 05/28/2024 05/28/2024 05/28/2024 3:25 PM CERAMICS TECHNICIAN Assessment Noted Time PHQ-9 Depression Total Score: 15 023 11:00 AM CERAMICS TECHNICIAN documented as of this encounter Care Teams Master Deputy Sheriff Court Security Relationship Specialty Start Date End Date Kiera Salinas, RL [address] [place] [address] PCP - General Physician Architectural Intern 08/23/21 Susanna Ba APRN, MANAGER JAVA [address] [place] [address] Nurse Practitioner Advanced Practice Nurse 12/24/22 documented as of this encounter
--- OUTSIDE RECORDS SUMMARY | 2024-08-06 17:15 | XMS_ITS | Encounter Summary ---
Author Organization [facility] Address [address] [place] [address] Phone Care Team Providers Care Material Processor Name Role Phone Francie Cherry MD Primary Care Provider [phone] Kiera Salinas PAC Primary Care Pro vider Susanna Ba APRN, STONEMASON APPRENTICE Unavailable Reason for Visit * Reason Comments Medication Refill Encounter Details Date Type Department Care Team (Late st Contact Info) Description 05/14/[address] [facility] - Primary Care - [place] [address] [place] [address] Francie Cherry MD [address] [place] [address] Medication Refill Social History Tobacco Use Types Packs/Day Years Used Date Smoking Tobacco: Former Cigarettes 0.5 7 Smokeless Tobacco: Never Comments:30 yrs ago Alcohol Use Standard Drinks/Week Comments No 0 (1 standard drink = 0.6 oz pur e alcohol) Sexually Active Control Partners Comments Not Currently Comments No Sex and Gender Information Value Date Recorded Sex Assigned at Not on file Legal Sex Female 8:59 PM CDT Gender Identity Not on file Sexual Orientation Not on file 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 No / Unsure 05/01/2021 2:43 PM CDT documented as of this encounter Miscellaneous Notes * Telephone Encounter - Danette Hays RN - 05/15/2021 10:44 AM CST Medication failed the protocol, provider to review and approve the medication order if appropriate. Requested Prescriptions Pending Prescriptions Disp Refills fenofibrate (TRICOR) 145 MG Tablet [Pharmacy Med Name: FENOFIBRATE 145 MG TABLET] 90 Tablet 0 Sig: TAKE 1 TABLET BY MOUTH EVERY DAY Fibrates Protocol Failed - 05/14/2021 6:54 AM Failed - Lipid panel in past 12 months LDL Date Value Ref Range Status 01/02/2021 107 0 - 130 mg/dL Final Passed - Visit with relevant provider in past 12 months or upcoming 90 days Recent Visits Date Type Provider Dept 01/03/21 Office Visit Francie Cherry MD [facility] 10/27/20 Office Visit Francie Cherry MD [facility] 09/16/20 Telemedicine Rashida Bullock APRN, CNP [facility] 07/05/20 Office Visit Brandon White MD [facility] Showing recent visits within past 365 days and meeting all other requirements Future Appointments Date Type Provider Dept 06/09/21 Appointment Lab, [facility] 06/16/21 Appointment Francie Cherry MD [facility] Showing future appointments within next 90 days and meeting all other requirements O REPAIR TEACHER documented in this encounter Plan of Treatment Not on file documented as of this encounter Visit Diagnoses Diagnosis Hyperlipidemia, unspecified hyperlipidemia type documented in this encounter Additional Health Concerns Infection Onset Date Last Indicated Resolved Time COVID - 19 04/24/2021 05/26/2021 06/15/2021 12:1 6 AM RADIO REPAIR TEACHER COVID - 08/14/2021 08/14/2021 09/03/2021 12:1 6 AM RADIO REPAIR TEACHER COVID - 19 09/26/2021 09/27/2021 10/17/2021 12:1 6 AM CDT COVID - 19 12/20/2021 12/20/2021 12/30/2021 12:1 6 AM CDT COVID - 19 05/24/2022 05/29/2022 06/08/2022 12:1 8 AM RADIO REPAIR TEACHER COVID - 19 07/12/2022 07/12/2022 07/22/2022 12:1 7 AM RADIO REPAIR TEACHER Respiratory Rule Out - RPA 01/14/2023 01/14/2023 0 01/14/2023 1:43 PM CDT COVID - 19 Confirmed 01/14/2023 01/14/2023 023 12:16 AM CDT Respiratory Rule-Out 10/15/2023 10/15/2023 024 1:49 PM CDT COVID - 19 10/15/2023 10/15/2023 10/15/2023 1:48 PM CDT Respiratory Rule-Out 05/21/2024 05/21/2024 024 12:52 PM RADIO REPAIR TEACHER COVID - 19 05/21/2024 05/21/2024 05/21/2024 12:5 1 PM RADIO REPAIR TEACHER COVID - 19 05/28/2024 05/28/2024 05/28/2024 3:25 PM RADIO REPAIR TEACHER documented as of this encounter Care Teams Material Processor Relationship Specialty Start Date End Date Francie Cherry MD [address] [place] [address] PCP - General Family Medicine 10/27/20 08/22/21 Kiera Salinas PAC [address] [place] [address] PCP - General Physician Twister Tender 08/23/21 Susanna Ba APRN, STONEMASON APPRENTICE [address] [place] [address] Nurse Practitioner Advanced Practice Nurse 12/24/22 documented as of this encounter
--- OUTSIDE RECORDS SUMMARY | 2024-08-06 17:15 | XMS_ITS | Encounter Summary ---
Author Organization [facility] Address [address] [place] [address] Phone Care Team Providers Care Supervisor Audit Clerks Name Role Phone Francie Cherry MD Primary Care Provider [phone] Kiera Salinas PAC Primary Care Pro vider Susanna Ba APRN, PARTS TECHNICIAN Unavailable Reason for Visit * Reason Comments Medication Refill Encounter Details Date Type Department Care Team (Late st Contact Info) Description 04/20/2021 Refill [facility] - Primary Care - [place] [address] [place] [address] Francie Cherry MD [address] [place] [address] Medication Refill Social History Tobacco Use Types Packs/Day Years Used Date Smoking Tobacco: Former Smokeless Tobacco: Never Alcohol Use Standard Drinks/Week Comments No 0 [...] on file documented as of this encounter Miscellaneous Notes * Telephone Encounter - Leesa Washington RN - 04/20/2021 10:32 AM CDT Patient requesting refill on hydrochlorothiazide. documented in this encounter Plan of Treatment Not on file documented as of this encounter Visit Diagnoses Diagnosis Anxiety Anxiety state, unspecified Essential hypertension Unspecified essential hypertension Seasonal allergies Allergic rhinitis, cause unspecified documented in this encounter Additional Health Concerns Infection Onset Date Last Indicated Resolved Time COVID - 19 04/24/2021 05/26/2021 06/15/2021 12:1 6 AM POTTERY MACHINE OPERATOR COVID - 19 08/14/2021 08/14/2021 09/03/2021 12:1 6 AM POTTERY MACHINE OPERATOR COVID - 19 09/26/2021 09/27/2021 10/17/2021 12:1 6 AM CDT COVID - 19 12/20/2021 12/20/2021 12/30/2021 12:1 6 AM CDT COVID - 19 05/24/2022 05/29/2022 06/08/2022 12:1 8 AM POTTERY MACHINE OPERATOR COVID - 19 07/12/2022 07/12/2022 07/22/2022 12:1 7 AM POTTERY MACHINE OPERATOR Respiratory Rule Out - RPA 01/14/2023 01/14/2023 0 01/14/2023 1:43 PM CDT COVID - 19 Confirmed 01/14/2023 01/14/2023 023 12:16 AM CDT Respiratory Rule-Out 10/15/2023 10/15/2023 024 1:49 PM CDT COVID - 19 10/15/2023 10/15/2023 10/15/2023 1:48 PM CDT Respiratory Rule-Out 05/21/2024 05/21/2024 024 12:52 PM POTTERY MACHINE OPERATOR COVID - 19 05/21/2024 05/21/2024 05/21/2024 12:5 1 PM POTTERY MACHINE OPERATOR COVID - 19 05/28/2024 05/28/2024 05/28/2024 3:25 PM POTTERY MACHINE OPERATOR documented as of this encounter Care Teams Supervisor Audit Clerks Relationship Specialty Start Date End Date Francie Cherry MD [address] [place] [address] PCP - General Family Medicine 10/27/20 08/22/21 Kiera Salinas, [facility] [address] [place] [address] PCP - General Physician Soft Top Installer 08/23/21 Susanna Ba APRN, PARTS TECHNICIAN [address] [place] [address] Nurse Practitioner Advanced Practice Nurse 12/24/22 documented as of this encounter
--- OUTSIDE RECORDS SUMMARY | 2024-08-06 17:15 | XMS_ITS | Encounter Summary ---
Author Organization [facility] Address [address] [place] [address] Phone Care Team Providers Care Batch Heat Treat Operator Name Role Phone Francie Cherry MD Primary Care Provider [phone] Kiera Salinas PAC Primary Care Pro vider Susanna Ba APRN, GOLD LAYER Unavailable Reason for Visit * Reason Comments Medication Refill Encounter Details Date Type Department Care Team (Late st Contact Info) Description 02/13/2021 Refill [facility] - Primary Care - [place] [address] [place] [address] Francie Cherry MD [address] [place] [address] Medication Refill Social History Tobacco [...] have Coronavirus / COVID-19? No / Unsure 01/20/2021 10:03 AM CDT documented as of this encounter Miscellaneous Notes * Telephone Encounter - Danette Hays RN - 02/13/2021 10:07 AM CDT Medication failed the protocol, provider to review and approve the medication order if appropriate. Requested Prescriptions Pending Prescriptions Disp Refills fenofibrate (TRICOR) 145 MG Tablet [Pharmacy Med Name: FENOFIBRATE 145 MG TABLET] 90 Tablet 0 Sig: TAKE 1 TABLET BY MOUTH EVERY DAY Fibrates Protocol Failed - 02/13/2021 10:07 AM Failed - Lipid panel in past 12 months LDL Date Value Ref Range Status 01/02/2021 107 0 - 130 mg/dL Final Passed - Visit with relevant provider in past 12 months or upcoming 90 days Recent Visits Date Type Provider Dept 01/03/21 Office Visit Francie Cherry MD [facility] 10/27/20 Office Visit Francie Cherry MD [facility] 09/16/20 Telemedicine Rashida Bullokc APN, TOM[facility] 07/05/20 Office Visit Brandon White MD [facility] Showing recent visits within past 365 days and meeting all other requirements Future Appointments No visits were found meeting these conditions. Showing future appointments within next 90 days and meeting all other requirements documented in this encounter Plan of Treatment Not on file documented as of this encounter Visit Diagnoses Diagnosis Hyperlipidemia, unspecified hyperlipidemia type documented in this encounter Additional Health Concerns Infection Onset Date Last Indicated Resolved Time COVID - 19 04/24/2021 05/26/2021 06/15/2021 12:1 6 AM DIMENSIONAL INSPECTOR COVID - 19 08/14/2021 08/14/2021 09/03/2021 12:1 6 AM DIMENSIONAL INSPECTOR COVID - 19 09/26/2021 09/27/2021 10/17/2021 12:1 6 AM CDT COVID - 19 12/20/2021 12/20/2021 12/30/2021 12:1 6 AM CDT COVID - 19 05/24/2022 05/29/2022 06/08/2022 12:1 8 AM DIMENSIONAL INSPECTOR COVID - 19 07/12/2022 07/12/2022 07/22/2022 12:1 7 AM DIMENSIONAL INSPECTOR Respiratory Rule Out - RPA 01/14/2023 01/14/2023 0 01/14/2023 1:43 PM CDT COVID - 19 Confirmed 01/14/2023 01/14/2023 023 12:16 AM CDT Respiratory Rule-Out 10/15/2023 10/15/2023 024 1:49 PM CDT COVID - 19 10/15/2023 10/15/2023 10/15/2023 1:48 PM CDT Respiratory Rule-Out 05/21/2024 05/21/2024 024 12:52 PM DIMENSIONAL INSPECTOR COVID - 19 05/21/2024 05/21/2024 05/21/2024 12:5 1 PM DIMENSIONAL INSPECTOR COVID - 19 05/28/2024 05/28/2024 05/28/2024 3:25 PM DIMENSIONAL INSPECTOR documented as of this encounter Care Teams Batch Heat Treat Operator Relationship Specialty Start Date End Date Francie Cherry MD [address] [place] [address] PCP - General Family Medicine 10/27/20 08/22/21 Kiera Salinas, RL [address] [place] [address] PCP - General Physician Door Installer 08/23/21 Susanna Ba APRN, GOLD LAYER [address] [place] [address] Nurse Practitioner Advanced Practice Nurse 12/24/22 documented as of this encounter
--- OUTSIDE RECORDS SUMMARY | 2024-08-06 17:16 | XMS_ITS | Encounter Summary ---
Author Organization [facility] Address [address] [place] [address] Phone Care Team Providers Care Pasting Machine Offbearer Name Role Phone Kiera Salinas PAC Primary Care Pro vider Susanna Ba APRN, BLADE CHANGER Unavailable Reason for Visit * Reason Comments Medication Refill Encounter Details Date Type Department Care Team (Late st Contact Info) Description 05/31/2023 Refill [facility] - Primary Care - [place] [address] [place] [address] Kiera Salnias, PAC [address] [facility] [place] [address] Medication Refill Social History Tobacco Use Types Packs/Day Years Used Date Smoking Tobacco: Former Cigarettes 0.5 7 Smokeless Tobacco: Never Comments:30 yrs ago Alcohol Use Standard Drinks/Week Comments No 0 (1 standard drink = 0.6 oz pur e alcohol) Personal Choice PHQ-2 Answer Date Recorded Total Score - Questions 1-9 15 07/2022 Education Answer Date Recorded What is the [...] encounter Miscellaneous Notes * Telephone Encounter - Tameka Archibald RN - 06/03/2023 8:58 AM CST Medication failed the protocol, provider to review and approve the medication order if appropriate. Requested Prescriptions Pending Prescriptions Disp Refills sertraline (ZOLOFT) 50 MG Tablet [Pharmacy Med Name: SERTRALINE HCL 50 MG TABLET] 90 Tablet 0 Sig: TAKE 1 TABLET BY MOUTH EVERY DAY SSRI (6 Month Refill Only) Protocol Failed - 05/31/2023 4:34 PM Failed - Has an encounter in the past 6 months with a depression, anxiety, adjustment disorder, OCD, or PTSD visit diagnosis Passed - Visit with relevant provider in past 6 months or upcoming 90 days Recent Visits Date Type Provider Dept 05/21/23 Office Visit Kiera Salinas PAC [facility] 05/20/23 Appointment Kiera Salinas PAC [facility] 01/14/23 Office Visit Kiera Salinas PAC [facility] Showing recent visits within past 182 days and meeting all other requirements Future Appointments No visits were found meeting these conditions. Showing future appointments within next 90 days and meeting all other requirements Passed - Patient has established therapy with SSRI for at least 6 months Refused Prescriptions Disp Refills escitalopram (LEXAPRO) 10 MG Tablet [Pharmacy Med Name: ESCITALOPRAM 10 MG TABLET] 90 Tablet 0 Sig: TAKE 1 TABLET BY MOUTH EVERY DAY SSRI (6 Month Refill Only) Protocol Failed - 05/31/2023 4:34 PM Failed - Active on medication list Failed - Has an encounter in the past 6 months with a depression, anxiety, adjustment disorder, OCD, or PTSD visit diagnosis Passed - Visit with relevant provider in past 6 months or upcoming 90 days Recent Visits Date Type Provider Dept 05/21/23 Office Visit Kiera Salinas PAC [facility] 05/20/23 Appointment Kiera Salinas PAC [facility] 01/14/23 Office Visit BradKiera romero Madhavi, PAC [facility] Showing recent visits within past 182 days and meeting all other requirements Future Appointments No visits were found meeting these conditions. Showing future appointments within next 90 days and meeting all other requirements Passed - Patient has established therapy with SSRI for at least 6 months ECUTTER ASSISTANT documented in this encounter Plan of Treatment Not on file documented as of this encounter Goals Goal Patient Goal Type Associated Problems Recent Progress Patient-Stated? Author I want to work through my grief for my . Behavioral Health Improving(09/2022 11:11 AM CDT) Yes Tamika Madison LCSW Note: Goal/Objective: Improve coping with grief related issues. Anticipated Time Frame for Goal Completion: 5 months Goal Reviewed with: patient Readiness to change: Ready to change Department associated with goal: [facility] Steps to achieve goal: [...] to grief. documented as of this encounter Visit Diagnoses Not on filedocumented in this encounter Additional Health Concerns Infection Onset Date Last Indicated Resolved Time Respiratory Rule-Out 10/15/2023 10/15/2023 024 1:49 PM CDT COVID - 19 10/15/2023 10/15/2023 10/15/2023 1:48 PM CDT Respiratory Rule-Out 05/21/2024 05/21/2024 024 12:52 PM STONECUTTER ASSISTANT COVID - 19 05/21/2024 05/21/2024 05/21/2024 12:5 1 PM STONECUTTER ASSISTANT COVID - 19 05/28/2024 05/28/2024 05/28/2024 3:25 PM STONECUTTER ASSISTANT Assessment Noted Time PHQ-9 Depression Total Score: 15 023 11:00 AM STONECUTTER ASSISTANT documented as of this encounter Care Teams Pasting Machine Offbearer Relationship Specialty Start Date End Date Kiera Salinas, RL [address] [place] [place] [address] PCP - General Physician Fiscal Specialist 08/23/21 Susanna Ba APRN, BLADE CHANGER [address] [place] [address] Nurse Practitioner Advanced Practice Nurse 12/24/22 documented as of this encounter
--- OUTSIDE RECORDS SUMMARY | 2024-08-06 17:16 | XMS_ITS | Encounter Summary ---
Author Organization [facility] Address [address] [facility] [place] [address] Phone Care Team Providers Care Welcome Center Attendant Name Role Phone Kiera Salinas PAC Primary Care Pro vider Susanna Ba APRN, INDUSTRIAL MAINTENANCE REPAIRER HELPER Unavailable Reason for Visit * Reason Comments Medication Refill Encounter Details Date Type Department Care Team (Late st Contact Info) Description 10/01/2022 [facility]ill [facility] - [place] [address] [place] [address] Ciara Moe, PAC [address] [place] [address] Medication Refill Social History Tobacco Use Types [...] Exposure Response Date Recorded In the last 10 days, have yo u been in contact with someone who was confirmed or suspected to have Coronavirus/COVID-19? No / Unsure 09/21/2022 10:26 AM CDT documented as of this encounter Miscellaneous Notes * Telephone Encounter - Leesa Washington RN - 10/01/2022 12:53 PM CDT Discontinued 09/14/22-dose adjustment. documented in this encounter Plan of Treatment [...] Ready to change Department associated with goal: [facility] Steps to achieve goal: [...] Onset Date Last Indicated Resolved Time Respiratory Rule Out - RPA 01/14/2023 01/14/2023 0 01/14/2023 1:43 PM CDT COVID - 19 Confirmed 01/14/2023 01/14/2023 07/ 023 12:16 AM CDT Respiratory Rule-Out 10/15/2023 10/15/2023 024 1:49 PM CDT COVID - 19 10/15/2023 10/15/2023 10/15/2023 1:48 PM CDT Respiratory Rule-Out 05/21/2024 05/21/2024 024 12:52 PM LATIN AMERICAN STUDIES PROFESSOR COVID - 05/21/2024 05/21/2024 05/21/2024 12:5 1 PM LATIN AMERICAN STUDIES PROFESSOR COVID - 05/28/2024 05/28/2024 05/28/2024 3:25 PM LATIN AMERICAN STUDIES PROFESSOR Assessment Noted Time PHQ-9 Depression Total Score: 15 023 11:00 AM LATIN AMERICAN STUDIES PROFESSOR documented as of this encounter Care Teams Welcome Center Attendant Relationship Specialty Start Date End Date Kiera Salinas, [facility] [address] [place] [address] PCP - General Physician Communications Department Head 08/23/21 Susanna Ba APRN, INDUSTRIAL MAINTENANCE REPAIRER HELPER [address] [place] [address] Nurse Practitioner Advanced Practice Nurse 12/24/22 documented as of this encounter
--- OUTSIDE RECORDS SUMMARY | 2024-08-06 17:16 | XMS_ITS | Encounter Summary ---
Author Organization [facility] Address [address] [place] [address] Phone Care Team Providers Care Executive Vice President And Chief Financial Officer Name Role Phone Kiera Salinas PAC Primary Care Pro vider Susanna Ba APRN, JOURNEYMAN PLUMBER Unavailable Reason for Visit * Reason Comments Medication Refill Encounter Details Date Type Department Care Team (Late st Contact Info) Description 11/09/2022 Refill [facility] - Internal Medicine - [place] [address] [place] [address] Kiera Salinas, PAC [address] [facility] [address] Medication Refill Social History Tobacco [...] suspected to have Coronavirus/COVID-19? No / Unsure 10/15/2022 9:33 AM CDT documented as of this encounter Miscellaneous Notes * Telephone Encounter - Tameka Archibald RN - 11/09/2022 12:57 PM CDT Medication failed the protocol, provider to review and approve the medication order if appropriate. Requested Prescriptions Pending Prescriptions Disp Refills sertraline (ZOLOFT) 50 MG Tablet [Pharmacy Med Name: SERTRALINE HCL 50 MG TABLET] 30 Tablet 1 Sig: TAKE 1 TABLET BY MOUTH EVERY DAY SSRI (6 Month Refill Only) Protocol Failed - 11/09/2022 12:31 PM Failed - Patient has established therapy with SSRI for at least 6 months Passed - Visit with relevant provider in past 6 months or upcoming 90 days Recent Visits Date Type Provider Dept 10/15/22 Office Visit Kiera Salinas PAC [facility] [place] 09/14/22 Office Visit Kiera Salinas PAC [facility] [place] 08/08/22 Office Visit Kiera Salinas PAC [facility] [place] 07/18/22 Office Visit Kiera Salinas PAC [facility] [place] 05/24/22 Office Visit Kiera Salinas PAC [facility] [place] Showing recent visits within past 182 days and meeting all other requirements Future Appointments Date Type Provider Dept 01/14/23 Appointment Kiera Salinas PAC [facility] [place] Showing future appointments within next 90 days and meeting all other requirements Passed - Has an encounter in the past 6 months with a depression, anxiety, adjustment disorder, OCD, or PTSD visit diagnosis documented in this encounter Plan of Treatment [...] Ready to change Department associated with goal: [facility] Steps to achieve goal: [...] Respiratory Rule-Out 05/21/2024 05/21/2024 024 12:52 PM DAM OPERATOR COVID - 19 05/21/2024 05/21/2024 05/21/2024 12:5 1 PM DAM OPERATOR COVID - 19 05/28/2024 05/28/2024 05/28/2024 3:25 PM DAM OPERATOR Assessment Noted Time PHQ-9 Depression Total Score: 15 023 11:00 AM DAM OPERATOR documented as of this encounter Care Teams Executive Vice President And Chief Financial Officer Relationship Specialty Start Date End Date Kiera Salinas, PAC [address] [place] [address] PCP - General Physician Proof Coin Collector 08/23/21 Susanna Ba APRN, JOURNEYMAN PLUMBER [address] [place] [address] Nurse Practitioner Advanced Practice Nurse 12/24/22 documented as of this encounter
--- OUTSIDE RECORDS SUMMARY | 2024-08-06 17:16 | XMS_ITS | Encounter Summary ---
Author Organization [facility] Address [address] [place] [address] Care Team Providers Care New Product Trainer Name Role Phone Kiera Salinas Primary Care Prov ider Adrianne Lyles Unavailable [phone] Encounter Details Date Type Department Care Team (Late st Contact Info) Description 08/05/2024 Telephone [facility] Orthopedics and Sports Medicine [address] [facility] [address] [place] [address] Mau Moralez MD [address] [place] [address] [facility] [address] [place] [address] Social History Tobacco Use Types Packs/Day Years Used Date Smoking Tobacco: Never Smokeless Tobacco: Never AUDIT-C Answer Date Recorded Q1: How often do you have a drink containing alc ohol? 2-4 times a month 02/25/2024 Q2: How many drinks containi ng alcohol do you have on a typical day when you are drinking? 3 or 4 02/25/2024 Frequency of Binge Drinking Not on file 02/06 Personal Safety Answer Date Recorded Have you ever been in or are you currently in a harmful physical or emotional relationship or is someone making you feel afraid or unsafe? Denies 03/03/2024 Comments No Sex and Gender Information Value Date Recorded Sex Assigned at Not on file Legal Sex Female 2:51 AM LOFTER Gender Identity Not on file Sexual Orientation Not on file documented as of this encounter Miscellaneous Notes * Telephone Encounter - Adrianne Swann - 08/05/2024 10:02 AM CST Patient called to say within the last week week her rt shoulder has been hurting . No injury No popping noise Anytime she moves it , it hurts. Rt reverse total dos 03/03/24 I used your same day on 08/12/24.(Patient wanted to be seen in [place]) ER documented in this encounter Plan of Treatment Not on file documented as of this encounter Visit Diagnoses Not on filedocumented in this encounter Care Teams New Product Trainer Relationship Specialty Start Date End Date Kiera Salinas PA PCP - General Neurosurgery 11/08/23 Adrianne Lyles PA [address] [place] [address] [address] [address] Physician Sand Cutting Machine Operator Orthopedic Surgery 03/03/24 documented as of this encounter
--- OUTSIDE RECORDS SUMMARY | 2024-08-06 17:16 | XMS_ITS | Encounter Summary ---
Author Organization [facility] Address [address] [facility] [place] [address] Phone Care Team Providers Care Numerical Control Operator Name Role Phone Kiera Salinas PAC Primary Care Pro vider Susanna Ba APRN, INTEGRITY ANALYST Unavailable Reason for Visit * Reason Comments Medication Refill Encounter Details Date Type Department Care Team (Late st Contact Info) Description 06/21/2022 Refill [facility] - Primary Care - [place] [address] [place] [address] Kiera Salinas, PAC [address] [place] [address] Medication Refill Social History Tobacco Use Types Packs/Day Years Used Date Smoking Tobacco: Former Cigarettes 0.5 7 Smokeless Tobacco: Never Comments:30 yrs ago Alcohol Use Standard Drinks/Week Comments No 0 (1 standard drink = 0.6 oz pur e alcohol) PHQ-2 Answer Date Recorded Total Score - Questions 1-9 3 08/08 Sexually Active Control Partners Comments Not Currently [...] Recorded In the last 10 days, have carmen u been in contact with someone who was confirmed or suspected to have Coronavirus/COVID-19? No / Unsure 05/29/2022 12:57 PM COAL CHUTE WORKER documented as of this encounter Miscellaneous Notes * Telephone Encounter - Susanna Padron RN - 06/21/2022 4:59 PM CST Medication failed the protocol, provider to review and approve the medication order if appropriate. Requested Prescriptions Pending Prescriptions Disp Refills FLUoxetine (PROzac) 10 MG Tablet [Pharmacy Med Name: FLUOXETINE HCL 10 MG TABLET] 90 Tablet 1 Sig: TAKE 1 TABLET BY MOUTH EVERY DAY SSRI (6 Month Refill Only) Protocol Failed - 06/21/2022 4:51 PM Failed - Has an encounter in the past 6 months with a depression, anxiety, adjustment disorder, OCD, or PTSD visit diagnosis Passed - Visit with relevant provider in past 6 months or upcoming 90 days Recent Visits Date Type Provider Dept 05/24/22 Office Visit Kiera Salinas, RL [facility] [place] Showing recent visits within past 182 days and meeting all other requirements Future Appointments No visits were found meeting these conditions. Showing future appointments within next 90 days and meeting all other requirements Passed - Patient has established therapy with SSRI for at least 6 months busPIRone (BUSPAR) 10 MG Tablet [Pharmacy Med Name: BUSPIRONE HCL 10 MG TABLET] 60 Tablet 0 Sig: TAKE 1 TABLET BY MOUTH TWICE A DAY Buspirone (6 Month Refill Only) Protocol Failed - 06/21/2022 4:51 PM Failed - Has an encounter in the past 6 months with a depression or anxiety visit diagnosis Failed - Patient has established therapy with Buspirone for at least 6 months Passed - Visit with relevant provider in past 6 months or upcoming 90 days Recent Visits Date Type Provider Dept 05/24/22 Office Visit Kiera Salinas, RL [facility] [place] Showing recent visits within past 182 days and meeting all other requirements Future Appointments No visits were found meeting these conditions. Showing future appointments within next 90 days and meeting all other requirements traZODone (DESYREL) 100 MG Tablet [Pharmacy Med Name: TRAZODONE 100 MG TABLET] 90 Tablet 1 Sig: TAKE 1 TABLET BY MOUTH EVERY DAY AT NIGHT Serotonin Modulators (6 Month Refill Only) Protocol Failed - 06/21/2022 4:51 PM Failed - Has an encounter in the past 6 months with a depression or anxiety visit diagnosis Passed - Visit with relevant provider in past 6 months or upcoming 90 days Recent Visits Date Type Provider Dept 05/24/22 Office Visit Kiera Salinas PAC [facility] [place] Showing recent visits within past 182 days and meeting all other requirements Future Appointments No visits were found meeting these conditions. Showing future appointments within next 90 days and meeting all other requirements Passed - No PRN Use for Trazodone Passed - Patient has established therapy with Serotonin Modulators for at least 6 months hydroCHLOROthiazide 12.5 MG Tablet [Pharmacy Med Name: HYDROCHLOROTHIAZIDE 12.5 MG TB] 90 Tablet 1 Sig: TAKE 1 TABLET BY MOUTH EVERY DAY Diuretics Protocol Passed - 06/21/2022 4:51 PM Passed - Serum potassium on record in past 12 months POTASSIUM Date Value Ref Range Status 01/10/2022 3.8 3.5 - 5.1 mmol/L Final Passed - Serum sodium on record in past 12 months SODIUM Date Value Ref Range Status 01/10/2022 136 136 - 144 mmol/L Final Passed - Blood pressure on record in past 12 months Clinician-entered: BP Readings from Last 3 Encounters: 05/29/22 (!) 156/91 05/24/22 120/82 01/10/22 119/71 Patient-entered: No data recorded Passed - Visit with relevant provider in past 12 months or upcoming 90 days Recent Visits Date Type Provider Dept 05/24/22 Office Visit [facility] [place] 12/20/21 Office Visit Kiera Salinas PAC [facility] [place] 08/23/21 Office Visit Kiera Salinas PAC [facility] [place] 08/14/21 Office Visit Francie Cherry MD [facility] Showing recent visits within past 365 days and meeting all other requirements Future Appointments No visits were found meeting these conditions. Showing future appointments within next 90 days and meeting all other requirements Passed - GFR on record in past 12 months GFR, EST. NONAFRICAN Date Value Ref Range Status 01/10/2022 >60 >=60 Final CHUTE WORKER documented in this encounter Plan of Treatment Not on file documented as of this encounter Visit Diagnoses Diagnosis Anxiety Anxiety state, unspecified Insomnia, unspecified type Essential hypertension Unspecified essential hypertension documented in this encounter Additional Health Concerns Infection Onset Date Last Indicated Resolved Time COVID - 19 07/12/2022 07/12/2022 07/22/2022 12:1 7 AM COAL CHUTE WORKER Respiratory Rule Out - RPA 01/14/2023 01/14/2023 0 01/14/2023 1:43 PM CDT COVID - 19 Confirmed 01/14/2023 01/14/2023 023 12:16 AM CDT Respiratory Rule-Out 10/15/2023 10/15/2023 024 1:49 PM CDT COVID - 19 10/15/2023 10/15/2023 10/15/2023 1:48 PM CDT Respiratory Rule-Out 05/21/2024 05/21/2024 024 12:52 PM COAL CHUTE WORKER COVID - 19 05/21/2024 05/21/2024 05/21/2024 12:5 1 PM COAL CHUTE WORKER COVID - 19 05/28/2024 05/28/2024 05/28/2024 3:25 PM COAL CHUTE WORKER Assessment Noted Time PHQ-9 Depression Total Score: 3 08/23/19 22 8:00 AM COAL CHUTE WORKER documented as of this encounter Care Teams Numerical Control Operator Relationship Specialty Start Date End Date Kiera Salinas PAC [address] [place] [address] PCP - General Physician Textile Coating Machine Operator 08/23/21 Susanna Ba PATTERN FINISHER, INTEGRITY ANALYST [address] [place] [address] Nurse Practitioner Advanced Practice Nurse 12/24/22 documented as of this encounter
--- OUTSIDE RECORDS SUMMARY | 2024-08-06 17:16 | XMS_ITS | Encounter Summary ---
Author Organization [facility] Address [address] [place] [address] Phone Care Team Providers Care Pediatric Pathologist Name Role Phone Kiera Salinas PAC Primary Care Pro vider Susanna Ba APRN, BLIND EYELETTER Unavailable Reason for Visit * Reason Comments Medication Refill Encounter Details Date Type Department Care Team (Late st Contact Info) Description 02/19/2023 Refill [facility] - Primary Care - [place] [address] [place] [address] Kiera Salinas, PAC [address] [facility] [facility] [place] [address] Medication Refill Social History Tobacco [...] Telephone Encounter - Tameka Archibald RN - 02/19/2023 9:00 AM CDT Medication failed the protocol, provider to review and approve the medication order if appropriate. Requested Prescriptions Pending Prescriptions Disp Refills fenofibrate (TRICOR) 145 MG Tablet [Pharmacy Med Name: FENOFIBRATE 145 MG TABLET] 90 Tablet 0 Sig: TAKE 1 TABLET BY MOUTH EVERY DAY Fibrates Protocol Failed - 02/19/2023 12:01 AM Failed - Lipid panel in past 12 months LDL Date Value Ref Range Status 01/10/2022 91 5 - 130 mg/dL Final HDL CHOLESTEROL Date Value Ref Range Status 01/10/2022 58.4 >40 mg/dL Final CHOLESTEROL Date Value Ref Range Status 01/10/2022 197 <=200 mg/dL Final TRIGLYCERIDES Date Value Ref Range Status 01/10/2022 240 (H) <150 mg/dL Final VLDL Date Value Ref Range Status 01/10/2022 48 5 - 55 mg/dL Final CHOL/HDL RATIO Date Value Ref Range Status 01/10/2022 3.4 0.0 - 4.4 Final NON-HDL CHOLESTEROL Date Value Ref Range Status 01/10/2022 138.6 (H) <130 mg/dL Final Passed - Visit with relevant provider in past 12 months or upcoming 90 days Recent Visits Date Type Provider Dept 01/14/23 Office Visit Kiera Salinas, PAC [facility] 10/15/22 Office Visit iKera Salinas, PAC [facility] 09/14/22 Office Visit Kiera Salinas, PAC [facility] 08/08/22 Office Visit Kiera Salinas, PAC [facility] 07/18/22 Office Visit Kiera Salinas, PAC [facility] 05/24/22 Office Visit Kiera Salinas, PAC [facility] Showing recent visits within past 365 days [...] Improving(09/2022 11:11 AM CDT) Yes Tamika Madison, VIDEO SYSTEMS ENGINEER Note: Goal/Objective: Improve coping with grief related issues. Anticipated Time Frame for Goal Completion: 5 months Goal Reviewed with: patient Readiness to change: Ready to change Department associated with goal: [facility] Steps to achieve goal: [...] Respiratory Rule-Out 05/21/2024 05/21/2024 024 12:52 PM DOUGHNUT MAKER COVID - 19 05/21/2024 05/21/2024 05/21/2024 12:5 1 PM DOUGHNUT MAKER COVID - 19 05/28/2024 05/28/2024 05/28/2024 3:25 PM DOUGHNUT MAKER Assessment Noted Time PHQ-9 Depression Total Score: 15 08/08/ 023 11:00 AM DOUGHNUT MAKER documented as of this encounter Care Teams Pediatric Pathologist Relationship Specialty Start Date End Date Kiera Salinas PAC [address] [place] [address] PCP - General Physician Race Relations Adviser 08/23/21 Susanna Ba APRN, BLIND EYELETTER [address] [place] [address] Nurse Practitioner Advanced Practice Nurse 12/24/22 documented as of this encounter
--- OUTSIDE RECORDS SUMMARY | 2024-08-06 17:16 | XMS_ITS | Encounter Summary ---
Author Organization [facility] Address [address] [facility] [place] [address] Phone Care Team Providers Care Motor Boss Name Role Phone Kiera Salinas [facility] Primary Care Pro vider Susanna Ba APRN, DIRECTOR OF SURGERY Unavailable Reason for Visit * Reason Comments Medication Refill Encounter Details Date Type Department Care Team (Late st Contact Info) Description 01/16/2023 Refill [facility] - Gastroenterology - [place] [address] [place] [id number] Susanna Ba APRN, DIRECTOR OF SURGERY [address] [place], [place] [id number] Medication Refill Social History Tobacco Use Types [...] suspected to have Coronavirus/COVID-19? No / Unsure 01/14/2023 12:52 PM CDT documented as of this encounter Miscellaneous Notes * Telephone Encounter - Martha Vargas RN - 01/17/2023 3:28 PM CDT [facility]ication [facility] and [facility] for pediatric and adult patients. documented in this encounter Plan of Treatment [...] Ready to change Department associated with goal: [facility] Steps to achieve goal: [...] as of this encounter Visit Diagnoses Diagnosis Generalized abdominal pain Abdominal pain, generalized documented in this encounter Additional Health Concerns Infection Onset Date Last Indicated Resolved Time COVID - 19 Confirmed 01/14/2023 01/14/2023 023 12:16 AM CDT Respiratory Rule-Out 10/15/2023 10/15/2023 024 1:49 PM CDT COVID - 10/15/2023 10/15/2023 10/15/2023 1:48 PM CDT Respiratory Rule-Out 05/21/2024 05/21/2024 024 12:52 PM SURGICAL CORSETIER COVID - 05/21/2024 05/21/2024 05/21/2024 12:5 1 PM SURGICAL CORSETIER COVID - 05/28/2024 05/28/2024 05/28/2024 3:25 PM SURGICAL CORSETIER Assessment Noted Time PHQ-9 Depression Total Score: 15 023 11:00 AM SURGICAL CORSETIER documented as of this encounter Care Teams Motor Boss Relationship Specialty Start Date End Date Kiera Salinas, [facility] [address] [place] [address] PCP - General Physician Transmission Technician 08/23/21 Susanna Ba APRN, DIRECTOR OF SURGERY [address] [place] [address] Nurse Practitioner Advanced Practice Nurse 12/24/22 documented as of this encounter
--- OUTSIDE RECORDS SUMMARY | 2024-08-06 17:16 | XMS_ITS | Encounter Summary ---
Author Organization [facility] Address [address] [place] [address] Phone Care Team Providers Care Stock Speculator Name Role Phone Kiera Salinas PAC Primary Care Pro vider Susanna Ba APRN, FINISHER POLISHER Unavailable Reason for Visit * Reason Comments Medication Refill Encounter Details Date Type Department Care Team (Late st Contact Info) Description 03/06/2023 Refill [facility] - Primary Care - [place] [address] [place] [address] Kiera Salinas, PAC [address] [address] Medication Refill Social History Tobacco [...] Telephone Encounter - Tameka Archibald RN - 03/06/2023 8:40 AM CDT Medication failed the protocol, provider to review and approve the medication order if appropriate. Requested Prescriptions Pending Prescriptions Disp Refills hydroCHLOROthiazide 12.5 MG Tablet [Pharmacy Med Name: HYDROCHLOROTHIAZIDE 12.5 MG TB] 90 Tablet 1 Sig: TAKE 1 TABLET BY MOUTH EVERY DAY Diuretics Protocol Passed - 03/06/2023 1:50 AM Passed - Serum potassium on record in past 12 months POTASSIUM Date Value Ref Range Status 12/24/2022 3.9 3.5 - 5.1 mmol/L Final Passed - Serum sodium on record in past 12 months SODIUM Date Value Ref Range Status 12/24/2022 139 136 - 144 mmol/L Final Passed - Blood pressure on record in past 12 months Clinician-entered: BP Readings from Last 3 Encounters: 01/14/23 106/74 12/24/22 132/88 10/15/22 126/82 Patient-entered: No data recorded Passed - Visit with relevant provider in past 12 months or upcoming 90 days Recent Visits Date Type Provider Dept 01/14/23 Office Visit Kiera Salinas, PAC [facility] 10/15/22 Office Visit Kiera Salinas, PAC [facility] [place] 09/14/22 Office Visit Kiera Salinas, PAC [facility] [place] 08/08/22 Office Visit Kiera Salinas, PAC [facility] [place] 07/18/22 Office Visit Kiera Salinas, PAC [facility] [place] 05/24/22 Office Visit Kiera Salinas, PAC [facility] Showing recent visits within past 365 days and meeting all other requirements Future Appointments No visits were found meeting these conditions. Showing future appointments within next 90 days and meeting all other requirements Passed - GFR on record in past 12 months GFR, EST. NONAFRICAN Date Value Ref Range Status 12/24/2022 >60 >=60 Final traZODone (DESYREL) 100 MG Tablet [Pharmacy Med Name: TRAZODONE 100 MG TABLET] 90 Tablet 1 Sig: TAKE 1 TABLET BY MOUTH EVERY DAY AT NIGHT Serotonin Modulators (6 Month Refill Only) Protocol Failed - 03/06/2023 1:50 AM Failed - Patient has established therapy with Serotonin Modulators for at least 6 months Passed - Visit with relevant provider in past 6 months or upcoming 90 days Recent Visits Date Type Provider Dept 01/14/23 Office Visit Kiera Salinas, PAC [facility] [place] 10/15/22 Office Visit Kiera Salinas, PAC [facility] 09/14/22 Office Visit Kiera Salinas, PAC [facility] [place] Showing recent visits within past 182 days and meeting all other requirements Future Appointments No visits were found meeting these conditions. Showing future appointments within next 90 days and meeting all other requirements Passed - Has an encounter in the past 6 months with a depression or anxiety visit diagnosis Passed - No PRN Use for Trazodone documented in this encounter Plan of Treatment Not on file documented as of this encounter Goals Goal Patient Goal Type Associated Problems Recent Progress Patient-Stated? Author I want to work through my grief for my . Behavioral Health Improving(09/2022 11:11 AM CDT) Yes Tamika Madison, GLASS BREAKER Note: Goal/Objective: Improve coping with grief related issues. Anticipated Time Frame for Goal Completion: 5 months Goal Reviewed with: patient Readiness to change: Ready to change Department associated with goal: [facility] Steps to achieve [...] as of this encounter Visit Diagnoses Diagnosis Essential hypertension Unspecified essential hypertension Insomnia, unspecified documented in this encounter Additional Health Concerns Infection Onset Date Last Indicated Resolved Time Respiratory Rule-Out 10/15/2023 10/15/2023 024 1:49 PM CDT COVID - 10/15/2023 10/15/2023 10/15/2023 1:48 PM CDT Respiratory Rule-Out 05/21/2024 05/21/2024 024 12:52 PM VP OF CUSTOMER EXPERIENCE STRATEGY COVID - 05/21/2024 05/21/2024 05/21/2024 12:5 1 PM VP OF CUSTOMER EXPERIENCE STRATEGY COVID - 05/28/2024 05/28/2024 05/28/2024 3:25 PM VP OF CUSTOMER EXPERIENCE STRATEGY Assessment Noted Time PHQ-9 Depression Total Score: 15 023 11:00 AM VP OF CUSTOMER EXPERIENCE STRATEGY documented as of this encounter Care Teams Stock Speculator Relationship Specialty Start Date End Date Kiera Salinas, [facility] [address] [place] [address] PCP - General Physician Spring Upholsterer 08/23/21 Susanna Ba APRN, FINISHER POLISHER [address] [place] [address] Nurse Practitioner Advanced Practice Nurse 12/24/22 documented as of this encounter
--- OUTSIDE RECORDS SUMMARY | 2024-08-06 17:16 | XMS_ITS | Encounter Summary ---
Author Organization [facility] Address [address] [place] [address] Phone Care Team Providers Care Executive Assistant To General Counsel Name Role Phone Kiera Salinas PAC Primary Care Pro vider Susanna Ba APRN, REGISTERED APPRAISER Unavailable Reason for Visit * Reason Comments Medication Refill Encounter Details Date Type Department Care Team (Late st Contact Info) Description 06/10/2023 Refill [facility] - Primary Care - [place] [address] [place] [address] Kiera Salinas, PAC [address] [facility] [place] [address] Medication Refill Social History Tobacco [...] Telephone Encounter - Tameka Archibald RN - 06/10/2023 9:11 AM CST Medication failed the protocol, provider to review and approve the medication order if appropriate. Requested Prescriptions Pending Prescriptions Disp Refills busPIRone (BUSPAR) 10 MG Tablet [Pharmacy Med Name: BUSPIRONE HCL 10 MG TABLET] 180 Tablet 0 Sig: TAKE 1 TABLET BY MOUTH TWICE A DAY Buspirone (6 Month Refill Only) Protocol Failed - 06/10/2023 12:02 AM Failed - Has an encounter in the past 6 months with a depression or anxiety visit diagnosis Passed - Visit with relevant provider in past 6 months or upcoming 90 days Recent Visits Date Type Provider Dept 05/21/23 Office Visit Kiera Salinas, PAC [facility] 05/20/23 Appointment Kiera Salinas, PAC [facility] 01/14/23 [facility] Showing recent visits within past 182 days and meeting all other requirements Future Appointments No visits were found meeting these conditions. Showing future appointments within next 90 days and meeting all other requirements Passed - Patient has established therapy with Buspirone for at least 6 months TENANCE PAINTER APPRENTICE documented in this encounter Plan of Treatment [...] Ready to change Department associated with goal: [facility] Steps to achieve goal: [...] Respiratory Rule-Out 05/21/2024 05/21/2024 024 12:52 PM MAINTENANCE PAINTER APPRENTICE COVID - 19 05/21/2024 05/21/2024 05/21/2024 12:5 1 PM MAINTENANCE PAINTER APPRENTICE COVID - 19 05/28/2024 05/28/2024 05/28/2024 3:25 PM MAINTENANCE PAINTER APPRENTICE Assessment Noted Time PHQ-9 Depression Total Score: 15 023 11:00 AM MAINTENANCE PAINTER APPRENTICE documented as of this encounter Care Teams Executive Assistant To General Counsel Relationship Specialty Start Date End Date Kiera Salinas, RL [address] [place] [address] PCP - General Physician Grey Iron Molder 08/23/21 Susanna Ba APRN, REGISTERED APPRAISER [address] [place] [address] Nurse Practitioner Advanced Practice Nurse 12/24/22 documented as of this encounter
--- OUTSIDE RECORDS SUMMARY | 2024-08-06 17:16 | XMS_ITS | Encounter Summary ---
Author Organization [facility] Address [address] [place] [address] Phone Care Team Providers Care Irrigation Tax Assessor Collector Name Role Phone Kiera Salinas PAC Primary Care Pro vider Susanna Ba APRN, WORKDAY CONSULTANT Unavailable Reason for Visit * Reason Comments Medication Refill Encounter Details Date Type Department Care Team (Late st Contact Info) Description 01/27/2023 Refill [facility] - Primary Care - [place] [address] [place] [address] Kiera Salinas, PAC [address] [facility] [place] [address] Medication Refill Social History Tobacco [...] Telephone Encounter - Tameka Archibald RN - 01/28/2023 10:16 AM CDT Medication failed the protocol, provider to review and approve the medication order if appropriate. Requested Prescriptions Pending Prescriptions Disp Refills busPIRone (BUSPAR) 10 MG Tablet [Pharmacy Med Name: BUSPIRONE HCL 10 MG TABLET] 60 Tablet 0 Sig: TAKE 1 TABLET BY MOUTH TWICE A DAY Buspirone (6 Month Refill Only) Protocol Failed - 01/27/2023 3:54 PM Failed - Active on medication list Passed - Visit with relevant provider in past 6 months or upcoming 90 days Recent Visits Date Type Provider Dept 01/14/23 Office Visit Kiera Salinas, RL [facility] 10/15/22 Office Visit Kiera Salinas, RL [facility] 09/14/22 [facility] 08/[facility]/22 Office Visit Kiera Salinas [facility] [place] Showing recent visits within past 182 days and meeting all other requirements Future Appointments No visits were found meeting these conditions. Showing future appointments within next 90 days and meeting all other requirements Passed - Has an encounter in the past 6 months with a depression or anxiety visit diagnosis Passed - Patient has established therapy with Buspirone for at least 6 months sertraline (ZOLOFT) 50 MG Tablet [Pharmacy Med Name: SERTRALINE HCL 50 MG TABLET] 90 Tablet 0 Sig: TAKE 1 TABLET BY MOUTH EVERY DAY SSRI (6 Month Refill Only) Protocol Failed - 01/27/2023 3:54 PM Failed - Patient has established therapy with SSRI for at least 6 months Passed - Visit with relevant provider in past 6 months or upcoming 90 days Recent Visits Date Type Provider Dept 01/14/23 Office Visit Kiera Salinas, PAC [facility] 10/15/22 Office Visit Kiera Salinas, PAC [facility] 09/14/22 Office Visit Kiera Salinas, PAC [facility] 08/08/22 Office Visit Kiera Salinas, PAC [facility] Showing recent visits within past 182 days and meeting all other requirements Future Appointments No visits were found meeting these conditions. Showing future appointments within next 90 days and meeting all other requirements Passed - Has an encounter in the past 6 months with a depression, anxiety, adjustment disorder, OCD, or PTSD visit diagnosis omeprazole (PriLOSEC) 20 MG CAPSULE DELAYED RELEASE [Pharmacy Med Name: OMEPRAZOLE DR 20 MG CAPSULE] 180 Capsule 0 Sig: TAKE 1 CAPSULE BY MOUTH TWICE A DAY Proton Pump Inhibitors Protocol Passed - 01/27/2023 3:54 PM Passed - Visit with relevant provider in past 12 months or upcoming 90 days Recent Visits Date Type Provider Dept 01/14/23 Office Visit Kiera Salinas, PAC [facility] 10/15/22 Office Visit Kiera Salinas, PAC [facility] [place] 09/14/22 Office Visit Kiera Salinas, PAC [facility] 08/08/22 Office Visit Kiera Salinas, PAC [facility] 07/18/22 Office Visit Kiera Salinas, PAC [facility] [place] 05/24/22 Office Visit Kiera Salinas, PAC [facility] Showing recent visits within past 365 days [...] to change Department associated with goal: [facility] Steps to achieve [...] as of this encounter Visit Diagnoses Diagnosis Gastroesophageal reflux disease, unspecified whether esophagitis present documented in this encounter Additional Health Concerns Infection Onset Date Last Indicated Resolved Time COVID - 19 Confirmed 01/14/2023 01/14/2023 023 12:16 AM CDT Respiratory Rule-Out 10/15/2023 10/15/2023 024 1:49 PM CDT COVID - 19 10/15/2023 10/15/2023 10/15/2023 1:48 PM CDT Respiratory Rule-Out 05/21/2024 05/21/2024 024 12:52 PM DIRECTOR FINANCIAL SYSTEMS COVID - 19 05/21/2024 05/21/2024 05/21/2024 12:5 1 PM DIRECTOR FINANCIAL SYSTEMS COVID - 19 05/28/2024 05/28/2024 05/28/2024 3:25 PM DIRECTOR FINANCIAL SYSTEMS Assessment Noted Time PHQ-9 Depression Total Score: 15 023 11:00 AM DIRECTOR FINANCIAL SYSTEMS documented as of this encounter Care Teams Irrigation Tax Assessor Collector Relationship Specialty Start Date End Date Kiera Salinas PAC [address] [place] [address] PCP - General Physician Beamster 08/23/21 Susanna Ba, AIR POLLUTION INSPECTOR, WORKDAY CONSULTANT [address] [place] [address] Nurse Practitioner Advanced Practice Nurse 12/24/22 documented as of this encounter
--- OUTSIDE RECORDS SUMMARY | 2024-08-06 17:16 | XMS_ITS | Encounter Summary ---
Author Organization [facility] Address [address] [place] [address] Phone Care Team Providers Care Ecdis N Navigation Operator Name Role Phone Kiera Salinas PAC Primary Care Pro vider Susanna Ba APRN, FRONT MAN Unavailable Reason for Visit * Reason Comments Medication Refill Encounter Details Date Type Department Care Team (Late st Contact Info) Description 10/17/2022 Refill [facility] - Internal Medicine - [place] [address] [place] [address] Kiera Salinas, PAC [address] [place] [address] Medication Refill Social History Tobacco [...] Telephone Encounter - Tameka Archibald RN - 10/18/2022 8:29 AM CDT Medication failed the protocol, provider to review and approve the medication order if appropriate. Requested Prescriptions Pending Prescriptions Disp Refills sertraline (ZOLOFT) 50 MG Tablet [Pharmacy Med Name: SERTRALINE HCL 50 MG TABLET] 30 Tablet 1 Sig: TAKE 1 TABLET BY MOUTH EVERY DAY SSRI (6 Month Refill Only) Protocol Failed - 10/17/2022 12:31 PM Failed - Patient has established therapy with SSRI for at least 6 months Passed - Visit with relevant provider in past 6 months or upcoming 90 days Recent Visits Date Type Provider Dept 10/15/22 Office Visit Kiera Salinas PAC [facility] [place] 09/14/22 Office Visit Kiera Salinas PAC [facility] [place] 08/08/22 Office Visit Kiera Salinas PAC [facility] [place] 07/18/22 Office Visit Kiera Salinas PAC [facility] 05/24/22 Office Visit Kiera Salinas PAC [facility] [place] Showing recent visits within past 182 days and meeting all other requirements Future Appointments Date Type Provider Dept 01/14/23 Appointment Kiera Salinas PAC [facility] [place] Showing future appointments within next 90 days [...] Ready to change Department associated with goal: [facility] Steps to [...] Respiratory Rule-Out 05/21/2024 05/21/2024 024 12:52 PM HEAD OF PARTNER DEVELOPMENT COVID - 19 05/21/2024 05/21/2024 05/21/2024 12:5 1 PM HEAD OF PARTNER DEVELOPMENT COVID - 19 05/28/2024 05/28/2024 05/28/2024 3:25 PM HEAD OF PARTNER DEVELOPMENT Assessment Noted Time PHQ-9 Depression Total Score: 15 023 11:00 AM HEAD OF PARTNER DEVELOPMENT documented as of this encounter Care Teams Ecdis N Navigation Operator Relationship Specialty Start Date End Date Kiera Salinas, PAC [address] [place] [address] PCP - General Physician Trailer Rental Clerk 08/23/21 Susanna Ba APRN, FRONT MAN [address] [place] [address] Nurse Practitioner Advanced Practice Nurse 12/24/22 documented as of this encounter
--- OUTSIDE RECORDS SUMMARY | 2024-08-06 17:16 | XMS_ITS | Encounter Summary ---
Author Organization [facility] Address [address] [place] [address] Phone Care Team Providers Care Enrolled Nurse Name Role Phone Kiera Salinas PAC Primary Care Pro vider Susanna Ba APRN, CHARGE LPN Unavailable Reason for Visit * Reason Comments Medication Refill Encounter Details Date Type Department Care Team (Late st Contact Info) Description 10/13/2022 Refill [facility] - Internal Medicine - [place] [address] [place] [address] Kiera Salinas, PAC [address] [facility] [place] [address] Medication Refill Social History Tobacco [...] AM CDT documented as of this encounter Plan of [...] Ready to change Department associated with goal: [facility] Steps to achieve [...] Respiratory Rule-Out 05/21/2024 05/21/2024 024 12:52 PM [employer] SALESPERSON COVID - 19 05/21/2024 05/21/2024 05/21/2024 12:5 1 PM [employer] SALESPERSON COVID - 19 05/28/2024 05/28/2024 05/28/2024 3:25 PM [employer] SALESPERSON Assessment Noted Time PHQ-9 Depression Total Score: 15 023 11:00 AM [employer] SALESPERSON documented as of this encounter Care Teams Enrolled Nurse Relationship Specialty Start Date End Date Kiera Salinas, [facility] [address] [place] [address] PCP - General Physician Security Operations Center Analyst 08/23/21 Susanna Ba APRN, CHARGE LPN [address] [place] [address] Nurse Practitioner Advanced Practice Nurse 12/24/22 documented as of this encounter
--- OUTSIDE RECORDS SUMMARY | 2024-08-06 17:17 | XMS_ITS | Referral Summary ---
Author Organization [facility] [place] [facility] Address [address] [place] [address] Care Team Providers Care Groundwater Monitoring Technician Name Role Phone Kiera Salinas Primary Care Prov ider Adrianne Lyles Unavailable [phone] Encounters Date Type Department Care Team Description 08/05/[address] [facility] Medical Group Orthopedics and Sports Medicine [address] [facility] [address], [place] [address] Mau Moralez MD from Last 3 Months Allergies No known active allergies Medications albuterol HFA (PROVENTIL HFA,VENTOLIN HFA,PROAIR HFA) 90 mcg/actuation inhaler Inhale 2 puffs as needed Active albuterol 2.5 mg /3 mL (0.083 %) nebulizer solution 6 Active busPIRone (BUSPAR) 10 mg tablet Take 1 tablet (10 mg total) by mouth as needed 4 Active cetirizine (ZyrTEC) 10 mg tablet Take 1 tablet (10 mg total) by mouth daily 4 Active hydroCHLOROthiaz ollie 12.5 mg tablet Take 1 tablet (12.5 mg total) by mouth daily 4 Active L. acidophilus/Bifi d. animalis 32 billion cell capsule Take by mouth 6 Active magnesium oxide 500 mg capsule Take by mouth 6 Active omeprazole (PriLOSEC) 20 mg capsule Take 1 capsule (20 mg total) by mouth daily 4 Active traZODone (DESYREL) 100 mg tablet Take 1 tablet (100 mg total) by mouth nightly 4 Active mv-min/iron/foli c/calcium/vitK (WOMEN'S MULTIVITAMIN ORAL) Take by mouth Active ascorbic acid (VITAMIN C) 500 mg tablet,chewable Take 1 tablet/chew tab (500 mg total) by mouth 2 (two) times a day 60 tablet/chew tab 4 Active aspirin 81 mg enteric coated tabletIndication s:prevention of thrombosis Take 1 tablet (81 mg total) by mouth 2 (two) times a day for 14 days 28 tablet 4 Active cholecalciferol (VITAMIN D-3) 2000 unit capsule Take 1 capsule (2,000 Units total) by mouth daily 30 capsule 4 Active ondansetron (ZOFRAN) 4 mg tabletIndication s:Prevention of Post-Operative Nausea and Vomiting Take 1 tablet (4 mg total) by mouth every 6 (six) hours as needed for nausea or vomiting 30 tablet 1 4 Active senna-docusate (PERICOLACE) 8.6-50 mg 1-2 times daily as needed for constipation 60 tablet 1 4 Active HYDROcodone-acet aminophen (NORCO) 5-325 mg per tabletIndication s:Pain Take 1 tablet by mouth every 4 (four) hours as needed for pain 30 tablet 4 Active ALPRAZolam (XANAX) 0.25 mg tablet Take 1 tablet (0.25 mg total) by mouth nightly as needed 4 Active phentermine (ADIPEX-P) 37.5 mg tablet Take 1 tablet (37.5 mg total) by mouth daily before breakfast 0 4 Active celecoxib (CeleBREX) 200 mg capsule Take 1 capsule by mouth once daily 30 capsule 4 Active Active Problems Problem Noted Date Diagnosed Date S/P reverse total shoulder arthroplasty, right 0 02/21/2024 Rotator cuff tear arthropathy of right shoulder 02/17/2024 Anxiety 01/15/2024 Asthma 01/15/2024 Gastroesophageal reflux disease 01/15/2024 High blood pressure 01/15/2024 Allergic rhinitis 10/27/2020 Hyperlipidemia 10/27/2020 Insomnia 10/27/2020 OAB (overactive bladder) 10/27/2020 Obesity, Class III, BMI 40-49.9 (morbid obesity) 10/27/2020 Overview (01/15/2024): Nitin Whittington from a weight loss clinic Social History Tobacco Use Types Packs/Day Years Used Date Smoking Tobacco: Never Smokeless Tobacco: Never Tobacco Cessation:Counseling Given: Not Answered AUDIT-C Answer Date Recorded Q1: How often [...] on file Legal Sex Female 2:51 AM BOOK AUTHOR Gender Identity Not on file Sexual Orientation Not on file Last Filed Vital Signs Vital Sign Reading Time Taken Comments Blood Pressure 135/85 04/28/2024 3:21 PM CDT Pulse 74 04/28/2024 3:21 PM CDT Temperature 36.2 ??C (97.2 ??F) 03/03/2024 1:58 PM CD T Respiratory Rate 16 04/28/2024 3:21 PM CDT Oxygen Saturation 98% 03/03/2024 1:58 PM CDT Inhaled Oxygen Concentration - - Weight 90.1 kg (198 lb 9.6 oz) 04/28/2024 3:21 P M CDT Height 160 cm (5' 3 ) 04/28/2024 3:21 PM CDT Body Mass Index 35.18 04/28/2024 3:21 PM CDT Plan of Treatment Not on file Medical Devices Implanted Type Area Dog Pound Attendant Device Identifier Shelf Expiration Date Model / Serial / Lot [employer] Component Glenoid Modular Post Reverse 20mm Ar-9582-20 - [id number] Implanted:Qty: 1 on 03/03/2024 by Mau Moralez MD at [facility] Right: Shoulder [employer] [id number] 09/04/2028 AR-9582-2 0 / / [id number] [employer] Baseplate 24mm 10 Deg Full Augment Oblique Cz-0425-5726 - [id number] Implanted:Qty: 1 on 03/03/2024 by Mau Moralez MD at [facility] Right: Shoulder [employer] [id number] 11/05/2027 AR-9580-2 410 / / [id number] [employer] 36mm 24 Baseplate Taper Sphere Glenoid Zd-4565-3825 - [id number] Implanted:Qty: 1 on 03/03/2024 by Mau Moralez MD at [facility] Right: Shoulder [employer] [id number] 11/04/2028 AR-9564-2 436 / / [id number] Ar[employer] Inc Univers Revers Univers [place] Shoulder 9 Stem Humeral Ar-9501-09s - [id number] Implanted:Qty: 1 on 03/03/2024 by Mau Moralez MD at [facility] Right: Shoulder [employer] [id number] 11/04/2024 AR-9501-0 9S / / [id number] [employer] Implant Suture Cup Humeral Reverse Right Univers Revers +2x33mm Titanium [id number] - [id number] Implanted:Qty: 1 on 03/03/2024 by Mua Moralez MD at [facility] Right: Shoulder [employer] [id number] 05/07/2028 AR-9502F- 33RCPC / / [id number] [employer] Univers Revers 5.5mm 40mm Modular Lock Glenoid Peripheral Screw Ar-9563-40 - [id number] Implanted:Qty: 1 on 03/03/2024 by Mau Moralez MD at [facility] Right: Shoulder [employer] [id number] 12/06/2027 AR-9563-4 0 / / [id number] [employer] Screw Glenoid Locking Reverse Univers [place]vers 5.5x20mm Titanium Ar-9563-20 - [id number] Implanted:Qty: 1 on 03/03/2024 by Mau Moralez MD at [facility] Right: Shoulder [employer] [id number] 07/07/2028 AR-9563-2 0 / / [id number] [employer] Insert Humeral Combo Reverse Poly Univers Revers +3x33mm So-8631-5044-3 - [id number] Implanted:Qty: 1 on 03/03/2024 by Mau Moralez MD at [facility] Right: Shoulder [employer] [id number] 03/07/2028 AR-9503-3 336-3 / / [id number] [employer] Inc Implant Pin Kit Glenoid Ar-9607s - Sna - [id number] Implanted:Qty: 1 on 03/03/2024 by Mau Moralez MD at [facility] Right: Shoulder [employer] 10/05/2028 AR-9607S / NA / [id number] Insurance IDPA Advance Directives For more information, please contact: [phone] * Full Code (Latest Code Status on File) Date Activated Date Inactivated Comments 03/03/2024 11:17 AM 03/03/2024 6:06 PM Care Teams Groundwater Monitoring Technician Relationship Specialty Start Date End Date Kiera Salinas PA PCP - General Neurosurgery 11/08/23 Adrianne Lyles PA [address] [place] [address] DR GONZALEZ [address] [place] [address] Physician Inspector Watch Parts Orthopedic Surgery 03/03/24
--- OUTSIDE RECORDS SUMMARY | 2024-08-06 17:17 | XMS_ITS | Encounter Summary ---
Author Organization [facility] Address [address] [place] [address] Phone Care Team Providers Care Supervisor Baking Name Role Phone Kiera Salinas PAC Primary Care Pro vider Susanna Ba APRN, FIREMAN HELPER Unavailable Reason for Visit * Reason Comments Medication Refill Encounter Details Date Type Department Care Team (Late st Contact Info) Description 01/28/2022 Refill [facility] Medical Group - Primary Care - [place] [address] [place] [address] Kiera Salinas, PAC [address] [place] [address] Medication Refill Social History Tobacco [...] suspected to have Coronavirus/COVID-19? No / Unsure 01/10/2022 11:48 AM CDT documented as of this encounter Miscellaneous Notes * Telephone Encounter - Susanna Padron RN - 01/29/2022 2:25 PM CDT Medication failed the protocol, provider to review and approve the medication order if appropriate. Requested Prescriptions Pending Prescriptions Disp Refills traZODone (DESYREL) 100 MG Tablet [Pharmacy Med Name: TRAZODONE 100 MG TABLET] 90 Tablet 1 Sig: TAKE 1 TABLET BY MOUTH EVERY DAY AT NIGHT Serotonin Modulators (6 Month Refill Only) Protocol Failed - 01/28/2022 3:59 PM Failed - Has an encounter in the past 6 months with a depression or anxiety visit diagnosis Passed - Visit with relevant provider in past 6 months or upcoming 90 days Recent Visits Date Type Provider Dept 12/20/21 Office Visit Kiera Salinas PAC [facility] 08/23/21 Office Visit Kiera Salinas PAC [facility] 08/14/21 Office Visit Francie Cherry MD [facility] Showing recent visits within past 182 days and meeting all other requirements Future Appointments Date Type Provider Dept 03/22/22 Appointment Kiera Salinas PAC [facility] Showing future appointments within next 90 days and meeting all other requirements Passed - No PRN Use for Trazodone Passed - Patient has established therapy with Serotonin Modulators for at least 6 months fenofibrate (TRICOR) 145 MG Tablet [Pharmacy Med Name: FENOFIBRATE 145 MG TABLET] 90 Tablet 0 Sig: TAKE 1 TABLET BY MOUTH EVERY DAY Fibrates Protocol Passed - 01/28/2022 3:59 PM Passed - Visit with relevant provider in past 12 months or upcoming 90 days Recent Visits Date Type Provider Dept 12/20/21 Office Visit Kiera Salinas PAC [facility] 08/23/21 Office Visit Kiera Salinas PAC [facility] 08/14/21 Office Visit Francie Cherry MD [facility] [employer] [facility] 06/19/21 Office Visit Francie Cherry MD [facility] Showing recent visits within past 365 days and meeting all other requirements Future Appointments Date Type Provider Dept 03/22/22 Appointment Kiera Salinas PAC [facility] Showing future appointments within next 90 days and meeting all other requirements Passed - Lipid panel in past 12 months LDL Date Value Ref Range Status 01/10/2022 91 5 - 130 mg/dL Final 01/02/2021 107 0 - 130 mg/dL Final HDL CHOLESTEROL Date [...] Status 01/10/2022 138.6 (H) <130 mg/dL Final FLUoxetine (PROzac) 10 MG Tablet [Pharmacy Med Name: FLUOXETINE HCL 10 MG TABLET] 90 Tablet 1 Sig: TAKE 1 TABLET BY MOUTH EVERY DAY SSRI (6 Month Refill Only) Protocol Failed - 01/28/2022 3:59 PM Failed - Has an encounter in the past 6 months with a depression, anxiety, adjustment disorder, OCD, or PTSD visit diagnosis Passed - Visit with relevant provider in past 6 months or upcoming 90 days Recent Visits Date Type Provider Dept 12/20/21 Office Visit Kiera Salinas PAC [facility] 08/23/21 Office Visit Kiera Salinas PAC [facility] 08/14/21 Office Visit Francie Cherry MD [facility] Showing recent visits within past 182 days and meeting all other requirements Future Appointments Date Type Provider Dept 03/22/22 Appointment Kiera Salinas PAC [facility] Showing future appointments within next 90 days and meeting all other requirements Passed - Patient has established therapy with SSRI for at least 6 months hydroCHLOROthiazide 12.5 MG Tablet [Pharmacy Med Name: HYDROCHLOROTHIAZIDE 12.5 MG TB] 90 Tablet 1 Sig: TAKE 1 TABLET BY MOUTH EVERY DAY Diuretics Protocol Passed - 01/28/2022 3:59 PM Passed - Serum potassium on record [...] Clinician-entered: BP Readings from Last 3 Encounters: 01/10/22 119/71 12/20/21 116/72 10/02/21 133/79 Patient-entered: No data recorded Passed - Visit with relevant provider in past 12 months or upcoming 90 days Recent Visits Date Type Provider Dept 12/20/21 Office Visit Kiera Salinas PAC [facility] 08/23/21 Office Visit Kiera Salinas PAC [facility] 08/14/21 Office Visit Francie Cherry MD [facility] 06/19/21 Office Visit Francie Cherry MD [facility] Showing recent visits within past 365 days and meeting all other requirements Future Appointments Date Type Provider Dept 03/22/22 Appointment Kiera Salinas PAC [facility] Showing future appointments within next 90 days and meeting all other requirements Passed - GFR on record in past 12 months GFR, EST. NONAFRICAN Date Value Ref Range Status 01/10/2022 >60 >=60 Final documented in this encounter Plan of Treatment Not on file documented as of this encounter Visit Diagnoses Diagnosis Insomnia, unspecified type Hyperlipidemia, unspecified hyperlipidemia type Anxiety Anxiety state, unspecified Essential hypertension Unspecified essential hypertension documented in this encounter Additional Health Concerns Infection Onset Date Last Indicated Resolved Time COVID - 19 05/24/2022 05/29/2022 06/08/2022 12:1 8 AM LICENSED BONDSMAN COVID - 19 07/12/2022 07/12/2022 07/22/2022 12:1 7 AM LICENSED BONDSMAN Respiratory Rule Out - RPA 01/14/2023 01/14/2023 0 01/14/2023 1:43 PM CDT COVID - 19 Confirmed 01/14/2023 01/14/2023 023 12:16 AM CDT Respiratory Rule-Out 10/15/2023 10/15/2023 024 1:49 PM CDT COVID - 19 10/15/2023 10/15/2023 10/15/2023 1:48 PM CDT Respiratory Rule-Out 05/21/2024 05/21/2024 024 12:52 PM LICENSED BONDSMAN COVID - 19 05/21/2024 05/21/2024 05/21/2024 12:5 1 PM LICENSED BONDSMAN COVID - 19 05/28/2024 05/28/2024 05/28/2024 3:25 PM LICENSED BONDSMAN Assessment Noted Time PHQ-9 Depression Total Score: 3 08/23/19 22 8:00 AM LICENSED BONDSMAN documented as of this encounter Care Teams Supervisor Baking Relationship Specialty Start Date End Date Kiera Salinas, PAC [address] [place] [address] PCP - General Physician Central Service Technician 08/23/21 Susanna Ba APRN, FIREMAN HELPER [address] [place] [address] Nurse Practitioner Advanced Practice Nurse 12/24/22 documented as of this encounter
--- OUTSIDE RECORDS SUMMARY | 2024-08-06 17:17 | XMS_ITS | Encounter Summary ---
Author Organization [facility] Address [address] [facility] [place] [address] Phone Care Team Providers Care Catalytic Converter Operator Helper Name Role Phone Kiera Salinas PAC Primary Care Pro vider Susanna Ba APRN, SUPERVISOR SHIP MAINTENANCE SERVICES Unavailable Reason for Visit * Reason Comments Medication Refill Encounter Details Date Type Department Care Team (Late st Contact Info) Description 08/06/2022 Refill [facility] Medical Group - Primary Care - [place] [address] [place] [address] Kiera Salinas, PAC [address] [address] Medication Refill Social History Tobacco Use Types Packs/Day Years Used Date Smoking Tobacco: Former Cigarettes 0.5 7 Smokeless Tobacco: Never Comments:30 yrs ago Alcohol Use Standard Drinks/Week Comments No 0 (1 standard drink = 0.6 oz pur e alcohol) PHQ-2 Answer Date Recorded Total Score - Questions 1-9 15 07/2022 Sexually Active Control Partners Comments Not Currently [...] suspected to have Coronavirus/COVID-19? No / Unsure 08/08/2022 11:43 AM DIRECTOR COMMUNITY HEALTH NURSING documented as of this encounter Functional Status * Question Answer Date of Assessment Author Little interest or pleasure in doing things Not at all 08/08/2022 11:00 AM Lyubov Phelps RMA Feeling down, depressed, or hopeless Nearly every day 08/08/2022 11:00 AM DIRECTOR COMMUNITY HEALTH NURSING Rachel Randall RMA * Over the past 2 weeks, how often have you been bothered by any of the following problems? Question Answer Date of Assessment Author Patient Health Questionnaire -2 Score 3 08/08/2022 11:00 AM Lyubov Phelps RMA documented as of this encounter Plan of [...] Rule-Out 05/21/2024 05/21/2024 024 12:52 PM DIRECTOR COMMUNITY HEALTH NURSING COVID - 19 05/21/2024 05/21/2024 05/21/2024 12:5 1 PM DIRECTOR COMMUNITY HEALTH NURSING COVID - 19 05/28/2024 05/28/2024 05/28/2024 3:25 PM DIRECTOR COMMUNITY HEALTH NURSING Assessment Noted Time PHQ-9 Depression Total Score: 3 08/23/19 22 8:00 AM DIRECTOR COMMUNITY HEALTH NURSING documented as of this encounter Care Teams Catalytic Converter Operator Helper Relationship Specialty Start Date End Date Kiera Salinas, PAC [address] [place] [address] PCP - General Physician Security Police 08/23/21 Susanna Ba APRN, SUPERVISOR SHIP MAINTENANCE SERVICES [address] [place] [address] Nurse Practitioner Advanced Practice Nurse 12/24/22 documented as of this encounter
--- OUTSIDE RECORDS SUMMARY | 2024-08-06 17:17 | XMS_ITS | Encounter Summary ---
Author Organization [facility] Address [address] [facility] [place] [address] Phone Care Team Providers Care Gas Fitter Name Role Phone Kiera Salinas PAC Primary Care Pro vider Susanna Ba APRN, DIGITAL MEDIA BUYER Unavailable Reason for Visit * Reason Comments Medication Refill Encounter Details Date Type Department Care Team (Late st Contact Info) Description 08/02/2022 Refill [facility]Care Medical Group - Primary Care - [place] [address] [place] [address] Kiera Salinas, PAC [address] [place] [address] Medication Refill Social History Tobacco [...] suspected to have Coronavirus/COVID-19? No / Unsure 07/17/2022 1:47 PM PHOTO PRODUCER documented as of this encounter Miscellaneous Notes * Telephone Encounter - Tameka Archibald RN - 08/06/2022 9:34 AM CST Name from pharmacy: BUSPIRONE HCL 10 MG TABLET Will file in chart as: busPIRone (BUSPAR) 10 MG Tablet The original prescription was discontinued on 07/18/2022 by Kiera Salinas PAC for thefollowing reason: Dose adjustment. Renewing this prescription may not be appropriate. O PRODUCER documented in this encounter Plan of Treatment [...] Respiratory Rule-Out 05/21/2024 05/21/2024 024 12:52 PM PHOTO PRODUCER COVID - 19 05/21/2024 05/21/2024 05/21/2024 12:5 1 PM PHOTO PRODUCER COVID - 19 05/28/2024 05/28/2024 05/28/2024 3:25 PM PHOTO PRODUCER Assessment Noted Time PHQ-9 Depression Total Score: 3 08/23/19 22 8:00 AM PHOTO PRODUCER documented as of this encounter Care Teams Gas Fitter Relationship Specialty Start Date End Date Kiera Salinas PAC [address] [place] [address] PCP - General Physician Electroplating Sales Representative 08/23/21 Susanna Ba APRN, DIGITAL MEDIA BUYER [address] [place] [address] Nurse Practitioner Advanced Practice Nurse 12/24/22 documented as of this encounter
--- OUTSIDE RECORDS SUMMARY | 2024-08-06 17:17 | XMS_ITS | Clinical Summary ---
Author Organization [facility] [place] [facility] Address [address] [place] [address] Care Team Providers Care Dietetic Intern Name Role Phone Kiera Salinas Primary Care Prov ider Adrianne Lyles Unavailable [phone] Allergies No known active allergies Medications albuterol [...] 40-49.9 (morbid obesity) 10/27/2020 Overview (01/15/2024): Nitin Pk from a weight loss clinic Encounters Date Type Department Care Team Description 08/05/2024 Telephone [facility] Medical Group Orthopedics and Sports Medicine 4 [facility] [address] [place] [address] Mau Moralez MD from Last 3 Months Surgical History Surgery Date Site/Laterality Comments HYSTERECTOMY Bladder tie up Medical History Medical History Date Comments Asthma GERD (gastroesophageal reflux disease) Anxiety Hypertension Social History Tobacco Use Types Packs/Day Years [...] on file Legal Sex Female 2:51 AM DRAGLINE MECHANIC Gender Identity Not on file Sexual Orientation Not on file Obstetrics History Last Filed Vital Signs Vital Sign Reading [...] 04/28/2024 3:21 PM CDT Plan of Treatment Health Maintenance Due Date Last Done Comments Colon Cancer Screening-Colonoscopy 1964 Depression Screening 1964 Hepatitis C Screening 1964 Hepatitis B Screening 1982 Regular Well Visit/Exam 18-64 1982 Covid-19 Vaccine (2 - 2023-2 5 season) 2024 10/12/2020 Influenza Vaccine (#1) 2024 , 04/27/2021, 03/31/2020, Additional history exists Breast Cancer Screening-Mammogram 09/04/2024 09/04/2023, 09/04/2023, 02/21/2022, Additional history exists DTaP/Tdap/Td Vaccine (2 - Td or Tdap) 05/13/2029 05/13/2019 Zoster Vaccine Completed 01/09/2021, 10/07, 04/23/2017 Pneumococcal vaccine <65 Completed 023, 04/24/2017, 01/30/2015 Medical Devices Implanted Type Area Grout Machine Tender Device Identifier Shelf Expiration Date Model / Serial / Lot [employer] Component Glenoid Modular Post Reverse 20mm Ar-9582-20 - [id number] Implanted:Qty: 1 on 03/03/2024 by Mau Moralez MD at [facility] Right: Shoulder [employer] [id number] 09/04/2028 AR-9582-2 0 / / [id number] [employer] Baseplate 24mm 10 Deg Full Augment Oblique Hx-3909-9060 - [id number] Implanted:Qty: 1 on 03/03/2024 by Mau Moralez MD at [facility] Right: Shoulder [employer] [id number] 11/05/2027 AR-9580-2 410 / / [id number] [employer] 36mm 24 Baseplate Taper Sphere Glenoid Xp-2544-4931 - [id number] Implanted:Qty: 1 on 03/03/2024 by Mau Moralez MD at [facility] Right: Shoulder [employer] [id number] 11/04/2028 AR-9564-2 436 / / [id number] [employer] Inc Univers Revers Univers [place] Shoulder 9 Stem Humeral Ar-9501-09s - [id number] Implanted:Qty: 1 on 03/03/2024 by Mau Moralez MD at [facility] Right: Shoulder [employer] [id number] 11/04/2024 AR-9501-0 9S / / [id number] [employer] Implant Suture Cup Humeral Reverse Right Univers Revers +2x33mm Titanium [id number] - [id number] Implanted:Qty: 1 on 03/03/2024 by Mau Moralez MD at [facility] Right: Shoulder [employer] [id number] 05/07/2028 AR-9502F- 33RCPC / / [id number] [employer] Univers Revers 5.5mm 40mm Modular Lock Glenoid Peripheral Screw Ar-9563-40 - [id number] Implanted:Qty: 1 on 03/03/2024 by Mau Moralez MD at [facility] Right: Shoulder [employer] [id number] 12/06/2027 AR-9563-4 0 / / [id number] [employer] Screw Glenoid Locking Reverse Univers Revers 5.5x20mm Titanium Ar-9563-20 - [id number] Implanted:Qty: 1 on 03/03/2024 by Mau Moralez MD at [facility] Right: Shoulder [employer] [id number] 07/07/2028 AR-9563-2 0 / / [id number] [employer] Insert Humeral Combo Reverse Poly Univers Revers +3x33mm Wz-0059-4614-3 - [id number] Implanted:Qty: 1 on 03/03/2024 by Mau Moralez MD at [facility] Right: Shoulder [employer] [id number] 03/07/2028 AR-9503-3 336-3 / / [id number] [employer] Implant Pin Kit Glenoid Ar-9607s - Sna - [id number] Implanted:Qty: 1 on 03/03/2024 by Mau Moralez MD at [facility] Right: Shoulder [employer] 10/05/2028 AR-9607S / NA / [id number] Insurance IDPA Advance Directives For more information, please contact: [phone] * Full Code (Latest Code Status on File) Date Activated Date Inactivated Comments 03/03/2024 11:17 AM 03/03/2024 6:06 PM Care Teams Dietetic Intern Relationship Specialty Start Date End Date Kiera Salinas PA PCP - General Neurosurgery 11/08/23 Adrianne Lyles PA [address] [place] [address] [address] [place] [address] Physician Automobile Damage Appraiser Orthopedic Surgery 03/03/24
--- OUTSIDE RECORDS SUMMARY | 2024-08-06 17:17 | XMS_ITS | Clinical Summary ---
Author Organization [facility] Address [address] [place] [address] Phone Care Team Providers Care Associate Of Science In Nursing Name Role Phone Kiera Salinas [facility] Primary Care Pro vider Susanna Ba APRN, BELT BUCKLE MAKER Unavailable Allergies No known active allergies Medications albuterol (PROVENTIL, VENTOLIN) (2.5 MG/3ML) 0.083% Nebulizer SolnIndications: Moderate persistent asthma, unspecified whether complicated every 6 hours as needed. 6 Active omeprazole (PriLOSEC) 20 MG CAPSULE DELAYED RELEASEIndicatio ns:Gastroesophag eal reflux disease, unspecified whether esophagitis present Take 1 Capsule by mouth 2 times daily. 180 Capsule 1 4 Active Additional Information Patient not taking.Reported on 05/21/2024 fluticasone (Flonase Allergy Relief) 50 MCG/ACT SuspensionIndica tions:Allergic rhinitis, unspecified seasonality, unspecified trigger 2 Sprays by Nasal route daily as needed for Allergies. Use in each nostril as directed. 16 g 2 4 Active hydroCHLOROthiaz ollie 12.5 MG TabletIndication s:Essential hypertension Take 1 Tablet by mouth daily. 90 Tablet 1 4 Active cetirizine (ZyrTEC) 10 MG Tablet Take 1 Tablet by mouth daily. 90 Tablet 4 Active HYDROcodone-acet aminophen (NORCO) 5-325 MG Tablet Take 1 Tablet by mouth every 4 hours as needed for Moderate or more severe pain. Active busPIRone (BUSPAR) 10 MG Tablet Take 1 tablet by mouth twice daily 180 Tablet 4 Active traZODone (DESYREL) 100 MG TabletIndication s:Insomnia, unspecified TAKE 1 TABLET BY MOUTH EVERY NIGHT. 90 Tablet 4 Active ALPRAZolam (XANAX) 0.25 MG TabletIndication s:Anxiety TAKE 1 TABLET BY MOUTH TWICE DAILY NEEDED FOR SLEEP AND FOR ANXIETY 32 Tablet 4 Active Additional Information Patient not taking.Reported on 05/21/2024 celecoxib (CeleBREX) 200 MG Capsule Take 1 Capsule by mouth daily. 4 Active Active Problems Problem Noted Date Diagnosed Date Screening for colon cancer 04/03/2024 Grief 08/23/2022 Right-sided chest pain 01/10/2022 Insomnia 10/27/2020 Hyperlipidemia 10/27/2020 Allergic rhinitis 10/27/2020 IFG (impaired fasting glucose) 10/27/2020 OAB (overactive bladder) 10/27/2020 Obesity, Class III, BMI 40-49.9 (morbid obesity) 10/27/2020 Overview (09/18/2023): Getting Mounjaro from a weight loss clinic Seasonal allergies 09/30/2020 High blood pressure Gastroesophageal reflux disease Asthma Anxiety Encounters Date Type Department Care Team Description 05/28/2024 1:51 PM TICKET WORKER - 05/28/2024 5:33 PM TICKET WORKER Emergency [facility] [address] [facility] [place] [address] Lauro Allen MD Viral infection Discharge Disposition: Discharged to home or Selfcare 05/28/2024 Travel 05/21/2024 12:10 PM TICKET WORKER [facility] [place] [address] [place] [address] Neha Ferrera, HEMATOLOGIST ONCOLOGIST, BELT BUCKLE MAKER Viral upper respiratory tract infection (Primary Dx); Acute cough; Body aches Discharge Disposition: Discharged to home or Selfcare 05/21/2024 Travel 05/18/2024 Refill [facility] [place] [address] [place] [address] Kiera Salinas, RL Medication Refill from Last 3 Months Immunizations Immunization Administration Dates Next Due Covid-19 Vaccine, Vector-nr, Rs-ad26, Pf, 0.5 Ml ([employer]ProDeaf) 10/12/2020 Influenza Vaccine, MDCK,quad rivalent, pres free 04/09/2017 Influenza Vaccine, Quadrivalent, PF 04/08,04/27/2021,03/31/2020,05/04,04/01/2018 Pneumococcal Vaccine - 13 Valent 04/24/2017 Pneumococcal Vaccine Adult - 23 Valent 5 Pneumococcal conjugate PCV20 , polysaccharide [id number] conjugate, adjuvant, PF 05/01/2023 TDAP Vaccine 05/13/2019 Zoster Vaccine Recombinant 01/09/2021,10/28/2020 Zoster Vaccine, live 04/23/2017 Family History Medical History Relation Name Comments Alcohol Abuse Brother 1 Reddy No Known Problems Brother 2 Jose Alcohol Abuse Brother 3 Osmin Heart Surgery Brother 3 Osmin High Cholesterol Brother 3 Osmin Alcohol Abuse Brother 4 Lynney Cancer Brother 4 Lynney Brain cancer Seizures Brother 5 Sami Alcohol Abuse Father Georgi Emphysema Father Georgi Heart Attack Mother Danyelle Heart Disease Mother Danyelle Heart Surgery Mother Danyelle Hypertension Mother Danyelle No Known Problems Sister Tricia Relation Name Status Comments Brother 1 Reddy Alive Brother 2 Jose Alive Brother 3 Osmin Alive Brother 4 Lynney Alive Brother 5 Sami Father Georgi Mother Danyelle Sister Tricia Alive Social History Tobacco Use Types Packs/Day Years Used Date Smoking Tobacco: Former Cigarettes 0.5 7 1 1 - 1987 Passive Smoke Exposure: Past Smokeless Tobacco: Never Tobacco Cessation:Counseling Given: No Comments:30 yrs ago Alcohol Use Standard Drinks/Week Comments Yes 0 (1 standard drink = 0.6 oz pur e alcohol) OCCASIONAL SOCIAL C Utilities Answer Date Recorded In the past 12 months has th e electric, gas, oil, or water company threatened to [...] often do you attend chur ch or uatsdin services? More than 4 times per year 09/16/2023 Do you belong to any clubs o r organizations such as lutheran groups, unions, fraternal or athletic groups, or [...] Date Recorded Total Score - Questions 1-9 0 02/05 [facility] [place] of Occupat ional Health - Occupational Stress Questionnaire Answer Date Recorded [...] place to sleep or slept in a fpc (including now)? No 09/16/2023 Education Answer Date Recorded What is the highest level of school you have completed or the highest degree you have received? 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 Not on file Not on file Not on file Last Filed Vital Signs Vital Sign Reading Time Taken Comments Blood Pressure 132/88 05/28/2024 5:30 PM TICKET WORKER Pulse 65 05/28/2024 5:30 PM TICKET WORKER Temperature 35.9 ??C (96.7 ??F) 05/28/2024 1:57 PM CS T Respiratory Rate 15 05/28/2024 5:30 PM TICKET WORKER Oxygen Saturation 100% 05/28/2024 5:30 PM TICKET WORKER Inhaled Oxygen Concentration - - Weight 84.8 kg (187 lb) 05/28/2024 1:57 PM TICKET WORKER Height 160 cm (5' 3 ) 05/28/2024 1:57 PM TICKET WORKER Body Mass Index 33.13 05/28/2024 1:57 PM TICKET WORKER Plan of Treatment Health Maintenance Due Date Last Done Comments Hepatitis C Virus (HCV) Screening 1965 Hepatitis B Immunization (1 of 3 - 19+ 3-dose series) 12/02/1983 Cologuard 2014 Immunochemical Fecal Occult Blood 2014 SARS-COV-2 Immunization ( season) 2024 10/12/2020 Colonoscopy 04/03/2025 04/03/2024, 05/19/2021 Colorectal Cancer Screening 04/03/2025 Mammogram 09/04/2025 09/04/2023, 02/05, 01/20/2021, Additional history exists Td Immunization Every 10 Years (Adults With 1 Tdap) 05/13/2029 05/13/2019 Respiratory Syncytial Virus (RSV) Immunization (Adult) (1 - 1-dose 75+ series) 12/02/2039 04/03/2024, 05/19/2021 DTaP/Tdap/Td Immunization Discontinued 05/13/2019 Zoster Immunization Completed 01/09/2021, 10/28/2020, 04/23/2017 Pneumococcal Immunization (50+ years) Completed 05/01/2023, 04/24/2017, 01/30/2015 Pneumococcal Immunization Combined Discontinued 05/01/2023, 04/24/2017, 01/30/2015 Influenza Immunization Completed , 05/01/2023, 04/27/2021, Additional history exists Meningococcal Immunization (ACWY) Aged Out No longer eligible based on patient's age to complete this topic Rotavirus Immunization Aged Out No lo nger eligible based on patient's age to complete this topic Goals Goal Patient Goal Type Associated Problems Recent Progress Patient-Stated? Author I want to work through my grief for my . Behavioral Health Improving(09/2022 11:11 AM CDT) Yes Tamika Madison, CUSTOMER SUPPORT ASSOCIATE Note: Goal/Objective: Improve coping with grief related issues. Anticipated Time Frame for Goal Completion: 5 months Goal Reviewed with: patient Readiness to change: Ready to change Department associated with goal: [facility] Steps to achieve goal: [...] aid in managing problematic responses to grief. Procedures Procedure Name Priority Date/Time Associated Diagnosis Comments XR CHEST 2 VIEWS STAT 05/28/2024 2:45 PM TICKET WORKER RSV,SARS-COV-2,INFLUE NZA A&B BY PCR STAT 05/28/2024 2:35 PM TICKET WORKER GOLD TOP TUBE STAT 05/28/2024 2:21 PM TICKET WORKER BLUE TOP TUBE STAT 05/28/2024 2:21 PM TICKET WORKER CBC WITH AUTO DIFFERENTIAL STAT 05/28/2024 2:21 PM TICKET WORKER EXTRA TUBES STAT 05/28/2024 2:21 PM TICKET WORKER LIPASE STAT 05/28/2024 2:21 PM TICKET WORKER CMP (COMPREHENSIVE METABOLIC PANEL) STAT 05/28/2024 2:21 PM TICKET WORKER COMPLETE BLOOD COUNT (CBC) WITH DIFF STAT 05/28/2024 2:21 PM TICKET WORKER EKG 12 LEAD STAT 05/28/2024 1:59 PM TICKET WORKER RHYTHM STRIP 05/28/2024 12:00 AM TICKET WORKER RHYTHM STRIP 05/28/2024 12:00 AM TICKET WORKER POC SARS-COV-2 BY MOLECULAR Routine 05/21/2024 12:41 PM TICKET WORKER Acute cough Body aches POC INFLUENZA A AND B BY MOLECULAR Routine 05/21/2024 12:41 PM TICKET WORKER Acute cough Body aches JOHNNY SCREENING BILATERAL DIGITAL W CAD W VEENA Routine 09/04/2023 1:05 PM TICKET WORKER Visit for screening mammogram from Last 3 Months or Most Recently Relevant to Health Maintenance Results * XR CHEST 2 VIEWS (05/28/2024 2:45 PM TICKET WORKER) Anatomical Region Laterality Modality Chest N/A Digital Radiogra phy 05/28/2024 3:06 PM TICKET WORKER Impressions 05/28/2024 3:08 PM TICKET WORKER IMPRESSION: No acute cardiopulmonary abnormality. Narrative 05/28/2024 3:08 PM TICKET WORKER EXAM DESCRIPTION: XR CHEST 2 VIEWS REASON FOR STUDY: cough, SOB, nausea x 1 week. denies chest pain. Pt states Dx with URI x 1 week ago. Hx of asthma ?? TECHNIQUE: 2 ??radiographic view(s) of the chest. COMPARISON: 02/17/2024 FINDINGS: LUNGS: Mild bibasilar atelectasis. ?? No focal pulmonary parenchymal consolidation, pleural effusion, or pneumothorax. ?? HEART/MEDIASTINUM: ??Cardiac silhouette normal in size. ??Unchanged mild elevation of the right hemidiaphragm. ??Mediastinal and hilar contours are otherwise normal. LINES/TUBES: ??None. BONES: ??No acute osseous abnormality. ?? Reverse ball and socket total right shoulder arthroplasty has been performed in the interval which is incompletely imaged and projects over the expected position. THIS IS AN ELECTRONICALLY VERIFIED FINAL REPORT 05/28/2024 3:06 PM - Electronically signed by ??Juan Ham M.D. AT: AT D: ??05/28/2024 3:06 PM T: ??05/28/2024 3:06 PM Report ID: [id number] Reading Location: ??[id number] Procedure Note Juan Ham MD - 05/28/2024 EXAM DESCRIPTION: XR CHEST 2 VIEWS REASON FOR STUDY: cough, SOB, nausea x 1 week. denies chest pain. Pt states Dx with URI x 1 week ago. Hx of asthma TECHNIQUE: 2 radiographic view(s) of the chest. COMPARISON: 02/17/2024 FINDINGS: LUNGS: Mild bibasilar atelectasis. No focal pulmonary parenchymal consolidation, pleural effusion, or pneumothorax. HEART/MEDIASTINUM: Cardiac silhouette normal in size. Unchanged mild elevation of the right hemidiaphragm. Mediastinal and hilar contours are otherwise normal. LINES/TUBES: None. BONES: No acute osseous abnormality. Reverse ball and socket total right shoulder arthroplasty has been performed in the interval which is incompletely imaged and projects over the expected position. THIS IS AN ELECTRONICALLY VERIFIED FINAL REPORT 05/28/2024 3:06 PM - Electronically signed by Juan Ham M.D. AT: AT Report ID: [id number] Reading Location: [id number] IMPRESSION: No acute cardiopulmonary abnormality. Lauro Allen MD IM DIAGNOSTIC ORDERAB LES Final Result * EDU-COV-2 Flu RSV - (Quad PCR) (05/28/2024 2:35 PM TICKET WORKER) FLU A Negative Negative, Error 05/28/2024 3:25 PM TICKET WORKER [facility] FLU B Negative Negative 05/28/2024 3:25 PM TICKET WORKER [email or web address] RESP SYNC VIRUS Negative Negative 4 3:25 PM TICKET WORKER [email or web address] SARSCOV2 NOT DETECTED (Reference Range for this test is Not Detected) 05/28/2024 3:25 PM TICKET WORKER [facility] Comment:This test was perfor med by a Reverse Superintendent [employer] PCR Method. Swab NASOPHARYNGEAL SWAB / Unknown Non-Phlebotomy Collection / Unknown 05/28/2024 2:35 PM TICKET WORKER 05/28/2024 2:43 PM TICKET WORKER Narrative [email or web address] - 05/28/2024 3:25 PM TICKET WORKER This test has not been FDA cleared or approved; the test has been authorized by FDA under an Emergency Use Authorization (EUA) for use by laboratories certified under the CLIA that meet the requirements to perform moderate, high or waived complexity tests. Authorized Fact Sheets about this test for providers and patients are available at: https://www.fda.gov/medical-devices/opbymvptj-wohocmrluu-zyapupj-devices/emergen cy-us e-authorizations us Lauro Allen MD MICROBIOLOGY - GENERAL ORDERABLES Final Result Performing Organization Address City/[facility]/ZIP Co de Phone Number [facility] [address] [place] [address] * Gold Top Tube (05/28/2024 2:21 PM TICKET WORKER) Blood No Phlebotomy Charged / Unknown 05/28/2024 2:21 PM TICKET WORKER 05/28/2024 2:45 PM TICKET WORKER us Lauro Allen MD CHEMISTRY ORDERABLES F inal Result Performing Organization Address City/[facility] Co de Phone Number [facility] [address] [place] [address] * Blue Top Tube (05/28/2024 2:21 PM TICKET WORKER) Blood No Phlebotomy Charged / Unknown 05/28/2024 2:21 PM TICKET WORKER 05/28/2024 2:45 PM TICKET WORKER us Lauro Allen MD HEMATOLOGY ORDERABLES Final Result Performing Organization Address [facility] Co de Phone Number [facility] [address] [place] [address] * (ABNORMAL) CBC with Auto Differential (05/28/2024 2:21 PM TICKET WORKER) WBC 7.77 4.00 - 12.00 10(3)/mcL 05/28/2024 2:47 PM TICKET WORKER [facility] [[email or web address] RBC 4.40 3.80 - 5.30 10(6)/mcL 05/28/2024 2:47 PM TICKET WORKER [facility] [[email or web address] LAB HEMOGLOBIN (HGB) 13.4 12.0 - 15.8 g/dL 05/28/2024 2:47 PM TICKET WORKER [facility] [[email or web address] LAB HEMATOCRIT (HCT) 40.8 36.0 - 47.0 % 05/28/2024 2:47 PM TICKET WORKER [facility] [[email or web address] LAB MCV 92.7 82.0 - 96.0 fL 05/28/2024 2:47 PM [facility] MCH 30.5 26.0 - 34.0 pg 05/28/2024 2:47 PM [facility] MCHC 32.8 31.0 - 36.0 g/dL 05/28/2024 2:47 PM [facility] PLATELET COUNT 418 140 - 440 10(3)/mcL 05/28/2024 2:47 PM [facility] RDW 13.0 11.8 - 15.5 % 05/28/2024 2:47 PM [facility] MPV 10.3 9.7 - 12.4 fL 05/28/2024 2:47 PM [facility] NEUTROPHILS 48.0 47.0 - 73.0 % 05/28/2024 2:47 PM [facility] LYMPHOCYTES 42.3(H) 18.0 - 42.0 % 05/28/2024 2:47 PM [facility] MONOCYTES 6.6 4.0 - 12.0 % 05/28/2024 2:47 PM [facility] EOSINOPHILS 2.3 0.0 - 5.0 % 05/28/2024 2:47 PM [facility] BASOPHILS 0.8 0.0 - 1.0 % 05/28/2024 2:47 PM [facility] ABSOLUTE NEUTROPHILS 3.73 1.60 - 7.70 10(3)/mcL 05/28/2024 2:47 PM [facility] ABSOLUTE LYMPHOCYTES 3.29(H) 1.30 - 3.20 10(3)/mcL 05/28/2024 2:47 PM [facility] ABSOLUTE MONOCYTES 0.51 0.20 - 1.00 10(3)/mcL 05/28/2024 2:47 PM [facility] ABSOLUTE EOSINOPHIL 0.18 0.00 - 0.40 10(3)/mcL 05/28/2024 2:47 PM [facility] ABSOLUTE BASOPHILS 0.06 0.00 - 0.10 10(3)/mcL 05/28/2024 2:47 PM TICKET WORKER [email or web address] NRBC PER 100 WBC 0 05/28/20 2:47 PM TICKET WORKER [facility] [[email or web address] Blood Venipuncture / Unknown 05/28/2024 2:21 PM TICKET WORKER 05/28/2024 2:43 PM TICKET WORKER us Lauro Allen MD HEMATOLOGY ORDERABLES Final Result [facility] [[email or web address] [address] [place] [address] * Lipase (05/28/2024 2:21 PM TICKET WORKER) LIPASE 77 8 - 78 U/L 05/28/2024 3:07 PM TICKET WORKER [facility] [[email or web address] Blood Venipuncture / Unknown 05/28/2024 2:21 PM TICKET WORKER 05/28/2024 2:43 PM TICKET WORKER us Lauro Allen MD CHEMISTRY ORDERABLES F inal Result [facility] [address] [place] [address] * CMP (05/28/2024 2:21 PM TICKET WORKER) SODIUM 139 136 - 145 mmol/L 05/28/2024 3:07 PM TICKET WORKER [facility] [[email or web address] POTASSIUM 3.5 3.5 - 5.1 mmol/L 05/28/2024 3:07 PM TICKET WORKER [email or web address] LAB CHLORIDE 102 98 - 107 mmol/L 05/28/2024 3:07 PM TICKET WORKER [email or web address] LAB CO2, VENOUS 28 22 - 30 mmol/L 05/28/2024 3:07 PM TICKET WORKER [email or web address] ANION GAP 12.5 <18.0 mmol/L 05/28/2024 3:07 PM [facility] GLUCOSE 94 70 - 99 mg/dL 05/28/2024 3:07 PM [facility] BUN 15 10 - 20 mg/dL 05/28/2024 3:07 PM [facility] CREATININE, BLOOD 0.82 0.60 - 1.00 mg/dL 05/28/2024 3:07 PM [facility] BUN/CREATININE RATIO 18 12 - 20 ratio 05/28/2024 3:07 PM [facility] TOTAL PROTEIN 7.6 6.3 - 8.2 g/dL 05/28/2024 3:07 PM [facility] ALBUMIN 4.7 3.5 - 5.0 g/dL 05/28/2024 3:07 PM [facility] A/G RATIO 1.6 1.0 - 2.2 05/28/2024 3:07 PM [facility] CALCIUM 9.8 8.7 - 10.5 mg/dL 05/28/2024 3:07 PM [facility] T BILI 0.2 0.2 - 1.2 mg/dL 05/28/2024 3:07 PM [facility] SGOT (AST) 17 5 - 34 U/L 05/28/2024 3:07 PM [facility] SGPT (ALT) 22 0 - 55 U/L 05/28/2024 3:07 PM [facility] ALKALINE PHOSPHATASE 69 40 - 150 U/L 05/28/2024 3:07 PM [facility] GFR, ESTIMATED >60 >=60 05/28/2024 3:07 PM [facility] Comment: Creatinine Clearance is the preferred criteria for selecting drug dose adjustments in renally impaired patients. ??The GFR is provided as additional pertinent clinical information. GFR is reported in mL/min/1.73 sq m. Calculation based on the Chronic Kidney Disease Epidemiology Collaboration (CKD- EPI) equation refit without adjustment for race. GFR, EST. >60 >=60 024 3:07 PM [facility] GFR, EST. NONAFRICAN >60 >=60 05/28/2024 3:07 PM TICKET WORKER [facility] Blood Venipuncture / Unknown 05/28/2024 2:21 PM TICKET WORKER 05/28/2024 2:43 PM TICKET WORKER us Lauro Allen MD CHEMISTRY ORDERABLES F inal Result Performing Organization Address [facility] Co de Phone Number [facility] [[email or web address] [address] [place] [address] * EKG 12 LEAD (05/28/2024 1:59 PM TICKET WORKER) Ventricular Rate 72 BPM EXTERNAL EKG Atrial Rate 72 BPM EXTERNAL EKG P-R Interval 174 ms EXTERNAL EKG QRS Duration 90 ms EXTERNAL EKG Q-T Duration 384 ms EXTERNAL EKG QTC CALCULATION 420 ms EXTERNAL EKG P [place] 31 degrees EXTERNAL EKG R [place] -14 degrees EXTERNAL EKG T [place] 45 degrees EXTERNAL EKG 05/28/2024 1:59 PM TICKET WORKER Impressions EXTERNAL EKG - 06/05/2024 1:11 PM TICKET WORKER Normal sinus rhythm Minimal voltage criteria for LVH, may be normal variant ( R in aVL ) Borderline ECG No previous ECGs available Confirmed by Lissette España ([id number]) on 06/05/2024 1:11:33 PM Narrative Procedure Note Lissette España MD - 06/05/2024 IMPRESSION: Normal sinus rhythm Minimal voltage criteria for LVH, may be normal variant ( R in aVL ) Borderline ECG No previous ECGs available Confirmed by Lissette España ([id number]) on 06/05/2024 1:11:33 PM us Lauro Allen MD IMG ECG ORDERABLES Fin al Result Performing Organization Address City/[facility] Co de Phone Number EXTERNAL EKG * RHYTHM STRIP (05/28/2024 12:00 AM TICKET WORKER) Only the most recent of2 resultswithin the time period is included. 05/28/2024 us Provider Scan IMG ECG ORDERABLES Final Result RESULTING AGENCY * POC SARS-COV-2 BY MOLECULAR (05/21/2024 12:41 PM TICKET WORKER) SARSCOV2 Negative Negative, INVALID PROCEDURE CONTROL Valid 05/21/2024 12:4 1 PM TICKET WORKER Neha Ferrera APRN, TOMER POINT OF CARE TEST ING (MANUAL) Final Result * POC INFLUENZA A AND B BY MOLECULAR (05/21/2024 12:41 PM TICKET WORKER) INFLUENZA A RNA Negative Negative, Invalid INFLUENZA B RNA Negative Negative, Invalid PROCEDURE CONTROL Valid 05/21/2024 12:4 1 PM TICKET WORKER Neha Ferrera APRN, TOMER POINT OF CARE TEST ING (MANUAL) Final Result * JOHNNY SCREENING BILATERAL DIGITAL W CAD W VEENA (09/04/2023 1:05 PM TICKET WORKER) Anatomical Region Laterality Modality breast Bilateral Mammography 09/04/2023 12:4 9 PM TICKET WORKER Narrative 09/04/2023 3:51 PM TICKET WORKER - JOHNNY SCREENING BILATERAL DIGITAL W CAD W VEENA BILATERAL DIGITAL SCREENING MAMMOGRAM 3D/2D WITH CAD WITH MEDIOLATERAL OBLIQUE CRANIOCAUDAL: 09/04/2023 The study was acquired using digital technology and interpreted from soft copy. Current study was also evaluated with ICAD version 7.2. 2D digital mammographic views, as well as 3D digital tomosynthesis were performed in the CC and MLO projections. ?? CLINICAL: Routine screening. Patient has no complaints. No personal history of cancer. No family history of breast cancer. ?? COMPARISONS: Comparison is made to exams dated: ??01/20/2021, 02/21/2022, and 09/03/2018 [facility]. ?? BREAST TISSUE:There are scattered fibroglandular densities in both breasts. ?? FINDINGS: No significant masses, calcifications, or other findings are seen in either breast. ?? There has been no significant interval change. IMPRESSION: BI-RAD 1 NEGATIVE There is no mammographic evidence of malignancy. A 1 year screening mammogram is recommended. ?? A letter will be sent to the patient with these results. The patient will be entered into a reminder system with a target due date of 1 year for her next screening exam. Electronically signed by: Farhan Morrissey M.D. ? ll/penrad:09/04/2023 15:43:11 ?? Planer Tailer(s): Yelena ?? RT Miah(Jenna)(Tc), [facility] letter sent: Normal Exam ?? Reading location: [facility] BI-RADS: 1 Negative Procedure Note Farhan Morrissey MD - 09/04/2023 - JOHNNY SCREENING BILATERAL DIGITAL W CAD W VEENA BILATERAL DIGITAL SCREENING MAMMOGRAM 3D/2D WITH CAD WITH MEDIOLATERAL OBLIQUE CRANIOCAUDAL: 09/04/2023 The study was acquired using digital technology and interpreted from soft copy. Current study was also evaluated with ICAD version 7.2. 2D digital mammographic views, as well as 3D digital tomosynthesis were performed in the CC and MLO projections. CLINICAL: Routine screening. Patient has no complaints. No personal history of cancer. No family history of breast cancer. COMPARISONS: Comparison is made to exams dated: 01/20/2021, 02/21/2022, and 09/03/2018 [facility]. BREAST TISSUE:There are scattered fibroglandular densities in both breasts. FINDINGS: No significant masses, calcifications, or other findings are seen in either breast. There has been no significant interval change. IMPRESSION: BI-RAD 1 NEGATIVE There is no mammographic evidence of malignancy. A 1 year screening mammogram is recommended. A letter will be sent to the patient with these results. The patient will be entered into a reminder system with a target due date of 1 year for her next screening exam. Electronically signed by: Farhan [email or web address]:09/04/2023 15:43:11 Planer Tailer(s): Yelena Dooley RT(R)(M), [facility] letter sent: Normal Exam Reading location: KAT BI-RADS: 1 Negative Kiera Salinas PAC IMG MAMMO ORDERAB LES Final Result from Last 3 Months or Most Recently Relevant to Health Maintenance Insurance [place] Advance Directives * Full Code (Latest Code Status on File) Date Activated Date Inactivated Comments 01/10/2022 3:36 PM 01/10/2022 9:09 PM CPR-Full Treat ment: FULL ARREST: Attempt Resuscitation/CPR wit intubation and mechanical ventilation. PRE-ARREST: Use entire range of life support measures to stabilize the patient. Care Teams Associate Of Science In Nursing Relationship Specialty Start Date End Date Kiera Salinas, PAC [address] [place] [address] PCP - General Physician Lubrication Equipment Servicer 08/23/21 Susanna Ba APRN, [employer] [address] [place] [address] Nurse Practitioner Advanced Practice Nurse 12/24/22
--- OUTSIDE RECORDS SUMMARY | 2024-08-06 17:18 | XMS_ITS | Data Portability ---
Author Organization [facility] Address [address] [place] [address] Care Team Providers Care Process Safety Management Engineer Name Role Phone KYLIE PERERA Primary Care Provider Assessment No assessment recorded. Plan of Treatment Reminders Order Date Submit Date Provider Last Modified By Organization Details Last Modified Time Details Appointments None recorded. Lab None recorded. Referral None recorded. Procedures None recorded. Surgeries None recorded. Imaging None recorded. Medication Orders nystatin-t riamcinolo ne 100,000 unit/gram- 0.1 % topical ointment 2022 023 [facility]armacy #[id number], [address] [place], [address], 3 15:10:31 estradiol 0.01% (0.1 mg/gram) vaginal cream [email or web address]/Pharmacy #[id number], [address] [place], [address], 3 08:32:36 nystatin-t riamcinolo ne 100,000 unit/gram- 0.1 % topical ointment 2022 023 [facility]/Pharmacy #[id number], [address] [place], [address], 3 17:18:36 estradiol 0.01% (0.1 mg/gram) vaginal cream 2022 023 [facility]/Pharmacy #[id number], [address] [place], [address], 3 17:18:37 Diflucan 200 mg tablet 2022 023 [facility]/Pharmacy #[id number], [address] [place], [address], 3 14:21:14 Patient TargetsNo targets recorded. Patient InstructionsNo instructions recorded. Reason for Referral None Reported. Procedures Surgical History Date Name Laterality Status Provider Name and Address Organization Details Recorded Time 10/08/19 07 partial hysterectomy completed Lainey Garcia [facility] [address], [place], [address], [facility] 10/24/2022 15:15:49 10/08/19 07 procedure on urinary bladder completed Lainey Garcia [facility] [address], [place], [address], [facility] 10/24/2022 15:16:30 Imaging Results None recorded. Procedure Notes None recorded. Medical Equipment None Reported. Allergies No known drug allergies Medications Name Sig Start Date Stop Date Status Note LastModified by Organization Details LastModified Time atorvastati n 40 mg tablet TAKE 1 TABLET BY MOUTH EVERY DAY 10/24 completed Not Available Not Available Not Available promethazin e-DM 6.25 mg-15 mg/5 mL oral syrup TAKE 5 ML BY MOUTH EVERY 4 HOURS NEEDED FOR COUGH 10/24 completed Not Available Not Available Not Available atorvastati n 20 mg tablet TAKE 1 TABLET BY MOUTH EVERY DAY 10/24 completed Not Available Not Available Not Available azithromyci n 250 mg tablet TAKE 2 TABLETS BY MOUTH TODAY, THEN TAKE 1 TABLET DAILY FOR 4 DAYS 10/24 completed Not Available Not Available Not Available fluconazole 150 mg tablet TAKE 1 TABLET TODAY, THE SECOND TABLET 48 HOURS LATER. 10/24 completed Not Available Not Available Not Available fluconazole 200 mg tablet TAKE 1 TABLET BY MOUTH EVERY DAY DIRECTED FOR 1 DAY active Not Available Not Available No t Available ondansetron HCl 4 mg tablet TAKE 1 TABLET BY MOUTH EVERY 8 HOURS NEEDED FOR NAUSEA FIRST LINE 06/15 /2023 completed Not Available Not Available Not Available prednisone 20 mg tablet TAKE 1 TABLET BY MOUTH TWICE A DAY FOR 5 DAYS 10/24 completed Not Available Not Available Not Available fluoxetine 10 mg tablet TAKE 1 TABLET BY MOUTH EVERY DAY 10/24 completed Not Available Not Available Not Available metronidazo le 500 mg tablet TAKE 1 TABLET BY MOUTH EVERY 12 HOURS 10/24 completed Not Available Not Available Not Available amlodipine 5 mg tablet TAKE 1 TABLET BY MOUTH EVERY DAY 10/24 completed Not Available Not Available Not Available omeprazole 40 mg capsule,del ayed release TAKE 1 CAPSULE BY MOUTH EVERY DAY 03/15 completed Not Available Not Available Not Available nystatin-tr iamcinolone 100,000 unit/gram-0 .1 % topical ointment APPLY TO THE AFFECTED AREA(S) BY TOPICAL ROUTE 2 TIMES PER DAY NEEDED active Not Available Not Available No t Available meloxicam 7.5 mg tablet TAKE 1 TABLET BY MOUTH EVERY DAY WITH FOOD 10/24 completed Not Available Not Available Not Available alprazolam 0.5 mg tablet TAKE 1 TABLET BY MOUTH THREE TIMES A DAY NEEDED FOR ANXIETY 10/24 completed Not Available Not Available Not Available alprazolam 0.25 mg tablet TAKE 1 TABLET BY MOUTH TWICE A DAY NEEDED FOR ANXIETY OR SLEEP 10/24 completed Not Available Not Available Not Available trazodone 100 mg tablet TAKE 1 TABLET BY MOUTH EVERY DAY AT NIGHT active Not Available Not Available No t Available buspirone 10 mg tablet TAKE 1 TABLET BY MOUTH TWICE A DAY active Not Available Not Available No t Available fluticasone 500 mcg-salmete rol 50 mcg/dose blistr powdr for inhalation Inhale 1 puff twice a day by inhalatio n route. active Not Available Not Available No t Available sertraline 25 mg tablet TAKE 1 TABLET BY MOUTH EVERY DAY 10/24 completed Not Available Not Available Not Available omeprazole 20 mg capsule,del ayed release TAKE 1 CAPSULE BY MOUTH TWICE A DAY active Not Available Not Available No t Available estradiol 0.01% (0.1 mg/gram) vaginal cream INSERT 1 GRAM VAGINALLY AT BEDTIME FOR 14 NIGHTS THEN, USE TWICE WEEKLY FOR MAINTENAN CE. active Not Available Not Available No t Available methylpredn isolone 4 mg tablets in a dose pack PLEASE SEE ATTACHED FOR DETAILED DIRECTION S 10/24 completed Not Available Not Available Not Available sertraline 50 mg tablet TAKE 1 TABLET BY MOUTH EVERY DAY active Not Available Not Available No t Available dicyclomine 10 mg capsule TAKE 1 CAPSULE BY MOUTH THREE TIMES A DAY active Not Available Not Available No t Available escitalopra m 10 mg tablet TAKE 1 TABLET BY MOUTH EVERY DAY 10/24 completed Not Available Not Available Not Available nitrofurant oin monohydrate /macrocryst als 100 mg capsule TAKE 1 CAPSULE BY MOUTH EVERY 12 HOURS FOR 5 DAYS MUST ADMINISTE R WITH A MEAL/FOOD 10/24 completed Not Available Not Available Not Available azelastine 12/20 completed Not Available Not Available Not Available fenofibrate nanocrystal lized 145 mg tablet TAKE 1 TABLET BY MOUTH EVERY DAY 12/20 completed Not Available Not Available Not Available hydrochloro thiazide 12.5 mg tablet TAKE 1 TABLET BY MOUTH EVERY DAY 12/20 completed Not Available Not Available Not Available cetirizine 10 mg capsule Take by oral route. active Not Available Not Available No t Available Ozempic 1 mg/dose (4 mg/3 mL) subcutaneou s pen injector INJECT 1 MG UNDER THE SKIN ONCE WEEKLY 10/24 completed Not Available Not Available Not Available Ozempic 2 mg/dose (8 mg/3 mL) subcutaneou s pen injector INJECT 2 MG UNDER THE SKIN WEEKLY 10/24 completed Not Available Not Available Not Available Mounjaro 7.5 mg/0.5 mL subcutaneou s pen injector INJECT 0.5 ML SUBCUTANE OUSLY WEEKLY 10/24 completed Not Available Not Available Not Available Mounjaro 5 mg/0.5 mL subcutaneou s pen injector INJECT 0.5 ML SUBCUTANE OUSLY WEEKLY 10/24 completed Not Available Not Available Not Available Mounjaro 10 mg/0.5 mL subcutaneou s pen injector INJECT 0.5 ML SUBCUTANE OUSLY WEEKLY active Not Available Not Available No t Available Mounjaro 2.5 mg/0.5 mL subcutaneou s pen injector INJECT 0.5ML SUBCUTANE OUSLY WEEKLY 10/24 completed Not Available Not Available Not Available Vitals Date Recorded Body height Body mass index (BMI) Body weight Systolic blood pressure Diastolic blood pressure Provider Name and Address Organization Details Last Updated DateTime 10/24/2022 160.02 cm 27.6 kg/m2 89280.41 g 142 mm[Hg] 84 mm[Hg] Angelina Whitney [facility] 14:54:04 Date Recorded Systolic blood pressure Diastolic blood pressure Provider Name and Address Organization Details Last Updated DateTime 10/24/2022 122 mm[Hg] 76 mm[Hg] Lainey Garcia, [facility] [address], [place], [address], [facility] 11/04/2022 19:51:36 Date Recorded Body height Body mass index (BMI) Body weight Provider Name and Address Organization Details Last Updated DateTime 12/20/2022 160.02 cm 27.8 kg/m2 63669 g Gisel Jade [facility] 12/20/2022 14:07:29 Date Recorded Systolic blood pressure Diastolic blood pressure Provider Name and Address Organization Details Last Updated DateTime 12/20/2022 128 mm[Hg] 76 mm[Hg] Lainey Garcia [facility] [address], [place], [address], [facility] 12/20/2022 17:14:19 Date Recorded Body height Body mass index (BMI) Body weight Provider Name and Address Organization Details Last Updated DateTime 03/15/2023 160.02 cm 28 kg/m2 21617.59 g Gisel Jade [facility] 03/15/2023 14:12:01 Date Recorded Systolic blood pressure Diastolic blood pressure Provider Name and Address Organization Details Last Updated DateTime 03/15/2023 132 mm[Hg] 72 mm[Hg] Lainey Garcia [facility] [address], [place], [address], [facility] 03/15/2023 14:23:53 Social History Question Answer Notes LastModified by Organizat ion Details LastModified Time Tobacco Smoking Status Never Smoker Gisel Yasmany [facility], [facility] 12/20/2022 14:07:58 What Is Your Level Of Alcohol Consumption? Occasional Information not available 12/20/2022 Are You Blind Or Do You Have Difficulty Seeing? No Information n ot available 12/20/2022 How Much Tobacco Do You Chew? None Information not available 12/20/2022 In The 14 Days Before Symptom Onset, Have You Had Close Contact With A Laboratory-confirm ed COVID-19 While That Case Was Ill? No [email or web address] Information n ot available 10/24/2022 In The 14 Days Before Symptom Onset, Have You Had Close Contact With A Person Who Is Under Investigation For COVID-19 While That Person Was Ill? No [email or web address] Information not available 10/24/2022 Have You Been To An Area Known To Be High Risk For COVID-19? No [email or web address] Information not available 10/24/2022 Are You Deaf Or Do You Have Serious Difficulty Hearing? No Information not available 12/20/2022 What Type Of Diet Are You Following? REGULAR Information n ot available 12/20/2022 What Is The Highest Grade Or Level Of School You Have Completed Or The Highest Degree You Have Received? 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 Yes Information not available 12/20/2022 Do You Use Protection During Sex? No Information not available 12/20/2022 Do You Use Your Seat Belt Or Car Seat Routinely? Yes Information not available 12/20/2022 Do You Have Smoke And Carbon Monoxide Detectors In Your Home? Yes Information not available 12/20/2022 How Much Tobacco Do You Smoke? No Information not available 12/20/2022 Do You Feel Stressed (tense, Restless, Nervous, Or Anxious, Or Unable To Sleep At Night)? [id number] Information not available 12/20/2022 Do You Use Any Illicit Or Recreational Drugs? No Information not available 12/20/2022 Do You Use Sunscreen Routinely? Yes Information not available 12/20/2022 Have You Used IV Drugs? No Information not available 12/20/2022 Do You Or Have You Ever Used Any Other Forms Of Tobacco Or Nicotine? No Information not available 12/20/2022 Sex: Unknown Functional Status Question Answer Note LastModified by Organizat ion Details LastModified Time Are you able to walk? [email or web address] Information not available 12/20/2022 What is your exercise level? Occasional Information not available 12/20/2022 Mental Status None recorded. Family History Relationship Description Onset Age of this Age Resolved Age Notes LastModified by Organization Details LastModified Time Maternal Grandmother Malignant tumor of cervix [email or web address] Not available 15:12:31 Maternal Grandmother Hypertensive disorder [email or web address] Not available 15:13:38 Maternal Grandmother Hypercholest erolemia [email or web address] Not available 15:13:52 Mother Blood coagulation disorder Doesn' t think it was geneti c [email or web address] Not available 10/24/2022 15:12:51 Mother Heart disease [email or web address] Not available 15:13:04 Mother Secondary infertility [email or web address] Not available 12/06 13:59:42 Paternal Uncle Malignant tumor of colon [email or web address] Not available 15:14:13 Maternal Uncle Heart disease [email or web address] Not available 15:14:32 Maternal Uncle Hypertensive disorder [email or web address] Not available 15:14:49 Maternal Uncle Hypercholest erolemia [email or web address] Not available 15:14:57 Medical History Condition Response Allergies (Food, seasonal, environmental ) Y Anxiety Disorder Y Depression/ depression Y Gynecological History Statement/Question Response Abnormal Pap N Date of Last Mammogram Date of LMP 07/08/2006 On BCP's at Conception? Y N STIs/STDs N HPV Vaccine N Current Control Method Hysterectom y Date of Last Colonoscopy Frequency of Cycle (Q days) 7 Sexually Active? N Date of DEXA bone scan Age of first menstrual cycle 12 Date of Last Pap Smear Sexual Problems? N LMP Approximate N Obstetrics History GPAL:G 5 P 4 0 1 4 Type Value Full Term 4 Induced 1 Living 4 Total 5 Past Encounters Encounter ID Performer Location Encounter Start Date Encounter Closed Date Diagnosis/Indication Diagnosis SNOMED-CT Code Diagnosis ICD10 Code Diagnosis Note [id number] ZAHIRA Srinivasan-[facility] [address] [address] 10/24/2022 14:11:45 10/25/2022 17:06:23 Atrophic vaginitis 08949603 N95.2 We discussed postmenopa usal atrophic vaginitis/ dryness.Tr ial of Estradol cream was recommende d & open to this suggestion .Counseled on VCG's wtih daily moisturize rs reviewed.S heet given for additional home review. 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 Vaginal estrogen is one of the most effective treatment options for vaginal dryness. Vaginal estrogen requires a prescripti on from your health care provider, so ask about this if lubricants and moisturize rs are not doing enough to relieve your symptoms. These therapies restore the topmost layer of vaginal cells and increase elasticity and connective tissue when used on a regular basis. (See 'Vaginal lubricants and moisturize rs' above.) Some people worry about possible side effects from hormones. Very low doses of estrogen can be used to treat vaginal dryness when it is in the form of a vaginal cream or insertable tablet, capsule, or ring. A small amount of estrogen is absorbed into the bloodstrea m with these vaginal forms, but when used regularly, the level of estrogen in the blood is in the same range as in postmenopa usal females who are not using vaginal estrogen. As a result, there is a much lower risk of the side effects people sometimes worry about, such as blood clots, breast cancer, and heart attack, compared with other estrogen-c ontaining products (eg, control pills, menopausal hormone therapy). R/B's and most common SE s were also reviewed with understand ing verbalized .Call if any insurance coverage issues. RTO x 2mos Vulvar/Med check Time spent in visit is a total of 30 mins with at least 50% of visit consisting of counseling and review of plan of care. Urinary symptoms [id number] R39.9 Will send urine to ensure UTI has cleared. Vulval irritation 517225 003 N90.89 May use PRN coupled with vag moisturize r of choice for a few days as itch settles. [id number] Lainey Garcia [facility] [address],[facility] [place] [address] 12/20/2022 13:59:34 12/20/2022 17:27:21 Atrophic vaginitis 10445942 N95.2 Exam showed much improvemen t!Very happy with current progress and regimen.We agreed to continue vag estrogen, VCG's & prn use of mycolog if needed.RF sent Time spent in visit is a total of 15 mins with at least 50% of visit consisting of counseling and review of plan of care. Vulval irritation 286946 003 N90.89 Use PRN sparingly to avoid vulva thinning of skin [id number] Lainey Garcia [facility] [address],[facility] [place] [address] 03/15/2023 14:02:19 03/15/2023 14:26:52 Vaginitis 05016791 N76.0 Yeast on examRx sent Counseled on medication R/B's, Most common side effects, & use. All questions were answered to patient satisfacti on.We will do 1 diflucan with precaution s givenDecli reena need std screen today Time spent in visit is a total of 15 mins with at least 50% of visit consisting of counseling and review of plan of care. Health Concerns Section Related Observation LastModified by Organization Detai ls LastModified Time None Recorded Concern Status LastModified by Organization Details LastModified Time None Recorded Advance Directives Directive None Recorded Payers Encounter Date Sequence Insurance Name Policy Number Policy Stoll Covered Member ID Stoll Member ID Guarantor Name 10/24/2022 1 [place] [facility] Wendi Neal [id number] Wendi Neal 10/24/2022 1 [employer] - CHOICE (POS II) [id number] Wendi Neal [id number] Wendi Neal 12/20/2022 1 [place] [facility] Wendi Neal [id number] Wendi Neal 12/20/2022 1 [employer] - CHOICE (POS II) [id number] Wendi Neal [id number] Wendi Neal 03/15/2023 1 [place] [facility] Wendi Neal [id number] Wendi Neal Notes Date Note Type Note Provider Name and Address Organization Details Recorded Time 10/24/2022 text/html patient is a 56y o post menopausal female here today for chronic vaginal itching on daily basis. Itching worse at night.External/inter nal Neg pain of abd/pelvis/flankNeg urinary sx'sNeg GI sx'sNeg N/V/F/C/DNeg Vag d/c, odor Health hx was reviewd & updated in chart. ZAHIRA Srinivasan- [address], [place], [address], [facility] 11/04/2022 19:55:05 12/20/2022 text/html Here today for vulva/med check. Lainey Garcia [facility]- [address], [place], [address], [facility] 12/20/2022 17:18:56 03/15/2023 text/html Vaginal/Vulvar ProblemReported bypatient.Notes:Here today for vaginal itching, irritation and discharge x 4 days. Neg pain of abd/pelvis/flankNeg urinary sx'sNeg GI sx'sNeg N/V/F/C/DNeg Vag odor Lainey Garcia [facility]- [address], [place], [address], [facility] 03/15/2023 14:26:08 OBGyn Episode Ob Episode Information Episode Created Date Number of Fetuses Patient Bloodtype Patient rh Status Prepregnancy Weight lbs Domestic Partner Domestic Partner Phone Father Name Material Assistant Status 10/25/19 23 1 CLOSED Fetus Data First Name Last Name Admitted to NICU Weight (g) Sex Living Outcome Pediatric Complications Fetus ID Race Codes Race Delivery Type 3997.05 2704 M Full Term [id number] Vaginal Delivery Rodo Calculation Initial Rodo Date Initial Exam Date Initial Exam Provider Initial Ultrasound Date Last Menstrual Period Date Ultra Sound Weeks Gestation 0 Eighteen To Twenty Week Rodo Update Ultra Sound Date Fundal Height At Umbil Quickening Date Ultra Sound Latest Weeks Gestation Final Rodo Confirmed By Final Rodo Confirmed Date Final Rodo Date Ultra Sound Latest Days Gestation 0 0 Menstrual History Last Menstrual Date Menses Monthly On Bcp Conception Prior Menses Frequency Hcg Plus Date Menarche Onset Age Delivery Information Delivery Date Delivery Type Labor Anesthesia Weeks Gestation Incision Type Labor Labor Length Hrs Delivered By Post Complications Tubal Sterilization Discharge Date Comments 3 40 Discharge Information Feeding Method Contraceptive Method Maternal HG B and HCT Levels Ob Episode Information Episode Created Date Number of Fetuses Patient Bloodtype Patient rh Status Prepregnancy Weight lbs Domestic Partner Domestic Partner Phone Father Name Material Assistant Status 10/25/19 23 1 CLOSED Fetus Data First Name Last Name Admitted to NICU Weight (g) Sex Living Outcome Pediatric Complications Fetus ID Race Codes Race Delivery Type 3997.05 2704 M Full Term [id number] Vaginal Delivery Rodo Calculation Initial Rodo Date Initial Exam Date Initial Exam Provider Initial Ultrasound Date Last Menstrual Period Date Ultra Sound Weeks Gestation 0 Eighteen To Twenty Week Rodo Update Ultra Sound Date Fundal Height At Umbil Quickening Date Ultra Sound Latest Weeks Gestation Final Rodo Confirmed By Final Rodo Confirmed Date Final Rodo Date Ultra Sound Latest Days Gestation 0 0 Menstrual History Last Menstrual Date Menses Monthly On Bcp Conception Prior Menses Frequency Hcg Plus Date Menarche Onset Age Delivery Information Delivery Date Delivery Type Labor Anesthesia Weeks Gestation Incision Type Labor Labor Length Hrs Delivered By Post Complications Tubal Sterilization Discharge Date Comments 0 40 false Discharge Information Feeding Method Contraceptive Method Maternal HG B and HCT Levels Ob Episode Information Episode Created Date Number of Fetuses Patient Bloodtype Patient rh Status Prepregnancy Weight lbs Domestic Partner Domestic Partner Phone Father Name Material Assistant Status 10/25/19 23 1 CLOSED Fetus Data First Name Last Name Admitted to NICU Weight (g) Sex Living Outcome Pediatric Complications Fetus ID Race Codes Race Delivery Type 3203.26 6704 M Full Term [id number] Vaginal Delivery Rodo Calculation Initial Rodo Date Initial Exam Date Initial Exam Provider Initial Ultrasound Date Last Menstrual Period Date Ultra Sound Weeks Gestation 0 Eighteen To Twenty Week Rodo Update Ultra Sound Date Fundal Height At Umbil Quickening Date Ultra Sound Latest Weeks Gestation Final Rodo Confirmed By Final Rodo Confirmed Date Final Rodo Date Ultra Sound Latest Days Gestation 0 0 Menstrual History Last Menstrual Date Menses Monthly On Bcp Conception Prior Menses Frequency Hcg Plus Date Menarche Onset Age Delivery Information Delivery Date Delivery Type Labor Anesthesia Weeks Gestation Incision Type Labor Labor Length Hrs Delivered By Post Complications Tubal Sterilization Discharge Date Comments 4 40 false Discharge Information Feeding Method Contraceptive Method Maternal HG B and HCT Levels Ob Episode Information Episode Created Date Number of Fetuses Patient Bloodtype Patient rh Status Prepregnancy Weight lbs Domestic Partner Domestic Partner Phone Father Name Material Assistant Status 10/25/19 23 1 CLOSED Fetus Data First Name Last Name Admitted to NICU Weight (g) Sex Living Outcome Pediatric Complications Fetus ID Race Codes Race Delivery Type , Induced Rodo Calculation Initial Rodo Date Initial Exam Date Initial Exam Provider Initial Ultrasound Date Last Menstrual Period Date Ultra Sound Weeks Gestation 0 Eighteen To Twenty Week Rodo Update Ultra Sound Date Fundal Height At Umbil Quickening Date Ultra Sound Latest Weeks Gestation Final Rodo Confirmed By Final Rodo Confirmed Date Final Rodo Date Ultra Sound Latest Days Gestation 0 0 Menstrual History Last Menstrual Date Menses Monthly On Bcp Conception Prior Menses Frequency Hcg Plus Date Menarche Onset Age Delivery Information Delivery Date Delivery Type Labor Anesthesia Weeks Gestation Incision Type Labor Labor Length Hrs Delivered By Post Complications Tubal Sterilization Discharge Date Comments 9 Discharge Information Feeding Method Contraceptive Method Maternal HG B and HCT Levels Ob Episode Information Episode Created Date Number of Fetuses Patient Bloodtype Patient rh Status Prepregnancy Weight lbs Domestic Partner Domestic Partner Phone Father Name Material Assistant Status 10/25/19 23 1 CLOSED Fetus Data First Name Last Name Admitted to NICU Weight (g) Sex Living Outcome Pediatric Complications Fetus ID Race Codes Race Delivery Type 3288.54 2 M Full Term [id number] Vaginal Delivery Rodo Calculation Initial Rodo Date Initial Exam Date Initial Exam Provider Initial Ultrasound Date Last Menstrual Period Date Ultra Sound Weeks Gestation 0 Eighteen To Twenty Week Rodo Update Ultra Sound Date Fundal Height At Umbil Quickening Date Ultra Sound Latest Weeks Gestation Final Rodo Confirmed By Final Rodo Confirmed Date Final Rodo Date Ultra Sound Latest Days Gestation 0 0 Menstrual History Last Menstrual Date Menses Monthly On Bcp Conception Prior Menses Frequency Hcg Plus Date Menarche Onset Age Delivery Information Delivery Date Delivery Type Labor Anesthesia Weeks Gestation Incision Type Labor Labor Length Hrs Delivered By Post Complications Tubal Sterilization Discharge Date Comments 7 40 Discharge Information Feeding Method Contraceptive Method Maternal HG B and HCT Levels
--- OUTSIDE RECORDS SUMMARY | 2024-08-06 17:18 | XMS_ITS | Encounter Summary ---
Author Organization [facility] Address [address] [place] [address] Phone Care Team Providers Care Kitchen Food Server Name Role Phone Francie Cherry MD Primary Care Provider [phone] Kiera Salinas PAC Primary Care Pro vider Susanna Ba APRN, FRUIT CULLER Unavailable Reason for Visit * Reason Comments Medication Refill Encounter Details Date Type Department Care Team (Late st Contact Info) Description 05/31/2021 Refill [facility] - Primary Care - Darren [address] [place] [address] Francie Cherry MD [address] [place] [address] Medication Refill Social History Tobacco [...] have Coronavirus / COVID-19? No / Unsure 05/26/2021 11:27 AM HL7 INTERFACE DEVELOPER documented as of this encounter Miscellaneous Notes * Telephone Encounter - Danette Hays RN - 06/02/2021 9:05 AM CST fenofibrate (TRICOR) 145 MG Tablet 90 Tablet 0 05/16/2021 Refill too soon 7 INTERFACE DEVELOPER documented in this encounter Plan of Treatment Not on file documented as of this encounter Visit Diagnoses Diagnosis Hyperlipidemia, unspecified hyperlipidemia type documented in this encounter Additional Health Concerns Infection Onset Date Last Indicated Resolved Time COVID - 19 04/24/2021 05/26/2021 06/15/2021 12:1 6 AM HL7 INTERFACE DEVELOPER COVID - 19 08/14/2021 08/14/2021 09/03/2021 12:1 6 AM HL7 INTERFACE DEVELOPER COVID - 19 09/26/2021 09/27/2021 10/17/2021 12:1 6 AM CDT COVID - 19 12/20/2021 12/20/2021 12/30/2021 12:1 6 AM CDT COVID - 19 05/24/2022 05/29/2022 06/08/2022 12:1 8 AM HL7 INTERFACE DEVELOPER COVID - 19 07/12/2022 07/12/2022 07/22/2022 12:1 7 AM HL7 INTERFACE DEVELOPER Respiratory Rule Out - RPA 01/14/2023 01/14/2023 0 01/14/2023 1:43 PM CDT COVID - 19 Confirmed 01/14/2023 01/14/2023 023 12:16 AM CDT Respiratory Rule-Out 10/15/2023 10/15/2023 024 1:49 PM CDT COVID - 19 10/15/2023 10/15/2023 10/15/2023 1:48 PM CDT Respiratory Rule-Out 05/21/2024 05/21/202405/21/2 024 12:52 PM HL7 INTERFACE DEVELOPER COVID - 19 05/21/2024 05/21/2024 05/21/2024 12:5 1 PM HL7 INTERFACE DEVELOPER COVID - 19 05/28/2024 05/28/2024 05/28/2024 3:25 PM HL7 INTERFACE DEVELOPER documented as of this encounter Care Teams Kitchen Food Server Relationship Specialty Start Date End Date Francie Cherry MD [address] [place] [address] PCP - General Family Medicine 10/27/20 08/22/21 Kiera Salinas, RL [address] [place] [address] PCP - General Physician Gearman 08/23/21 Susanna Ba APRN, FRUIT CULLER [address] [place] [address] Nurse Practitioner Advanced Practice Nurse 12/24/22 documented as of this encounter
--- OUTSIDE RECORDS SUMMARY | 2024-08-06 17:18 | XMS_ITS | Encounter Summary ---
Author Organization [facility] Address [address] [place] [address] Phone Care Team Providers Care Terminal Manager Name Role Phone Kiera Salinas [facility] Primary Care Pro vider Susanna Ba DAYTIME BABYSITTER, BOTTOM STAINER Unavailable Reason for Visit * Reason Comments Medication Refill Encounter Details Date Type Department Care Team (Late st Contact Info) Description 08/31/2021 Refill [facility] - Primary Care - Darren [address] [place] [address] Francie Cherry MD [address] [place] [address] Medication Refill Social History Tobacco [...] have Coronavirus / COVID-19? No / Unsure 08/23/2021 8:29 AM CREDIT NEGOTIATOR documented as of this encounter Miscellaneous Notes * Telephone Encounter - Danette Hays RN - 08/31/2021 1:27 PM CST Medication failed the protocol, provider to review and approve the medication order if appropriate. Requested Prescriptions Pending Prescriptions Disp Refills hydroCHLOROthiazide 12.5 MG Tablet [Pharmacy Med Name: HYDROCHLOROTHIAZIDE 12.5 MG TB] 90 Tablet 1 Sig: TAKE 1 TABLET BY MOUTH EVERY DAY Diuretics Protocol Passed - 08/31/2021 12:56 PM Passed - Serum potassium on record in past 12 months POTASSIUM Date Value Ref Range Status 06/09/2021 3.5 3.5 - 5.1 mmol/L Final Passed - Serum sodium on record in past 12 months SODIUM Date Value Ref Range Status 06/09/2021 138 136 - 144 mmol/L Final Passed - Blood pressure on record in past 12 months Clinician-entered: BP Readings from Last 3 Encounters: 08/23/21 110/82 08/14/21 120/82 06/19/21 122/74 Patient-entered: No data recorded Passed - Visit with relevant provider in past 12 months or upcoming 90 days Recent Visits Date Type Provider Dept 08/23/21 Office Visit Kiera Salinas PAC [facility] 08/14/21 Office Visit Francie Cherry MD [facility] 06/19/21 Office Visit Francie Cherry MD [facility] 01/03/21 Office Visit Francie Cherry MD [facility] 10/27/20 Office Visit Francie Cherry MD [facility] 09/16/20 Telemedicine Rashida Bullock APRN, BOTTOM STAINER [facility] Show[facility] recent visits within past 365 days and meeting all other requirements Future Appointments No visits were found meeting these conditions. Showing future appointments within next 90 days and meeting all other requirements Passed - GFR on record in past 12 months GFR, EST. NONAFRICAN Date Value Ref Range Status 06/09/2021 >60 >=60 Final FLUoxetine (PROzac) 10 MG Tablet [Pharmacy Med Name: FLUOXETINE HCL 10 MG TABLET] 90 Tablet 1 Sig: TAKE 1 TABLET BY MOUTH EVERY DAY SSRI (6 Month Refill Only) Protocol Failed - 08/31/2021 12:56 PM Failed - Has an encounter in the past 6 months with a depression, anxiety, adjustment disorder, OCD, or PTSD visit diagnosis Passed - Visit with relevant provider in past 6 months or upcoming 90 days Recent Visits Date Type Provider Dept 08/23/21 Office Visit Kiera Salinas, [facility] 08/14/21 Office Visit Francie Cherry MD [facility] 06/19/21 Office Visit Francie Cherry MD [facility] Showing recent visits within past 182 days and meeting all other requirements Future Appointments No visits were found meeting these conditions. Showing future appointments within next 90 days and meeting all other requirements Passed - Patient has established therapy with SSRI for at least 6 months traZODone (DESYREL) 100 MG Tablet [Pharmacy Med Name: TRAZODONE 100 MG TABLET] 90 Tablet 1 Sig: TAKE 1 TABLET BY MOUTH EVERY DAY AT NIGHT Serotonin Modulators (6 Month Refill Only) Protocol Failed - 08/31/2021 12:56 PM Failed - Has an encounter in the past 6 months with a depression or anxiety visit diagnosis Passed - Visit with relevant provider in past 6 months or upcoming 90 days Recent Visits Date Type Provider Dept 08/23/21 Office Visit Kiera Salinas, [facility] 08/14/21 Office Visit Francie Cherry MD [facility] [address] 06/19/21 Office Visit Francie Cherry MD [facility] Showing recent visits within past 182 days and meeting all other requirements Future Appointments No visits were found meeting these conditions. Showing future appointments within next 90 days and meeting all other requirements Passed - No PRN Use for Trazodone Passed - Patient has established therapy with Serotonin Modulators for at least 6 months omeprazole (PriLOSEC) 20 MG CAPSULE DELAYED RELEASE [Pharmacy Med Name: OMEPRAZOLE DR 20 MG CAPSULE] 180 Capsule 0 Sig: TAKE 1 CAPSULE BY MOUTH TWICE A DAY Proton Pump Inhibitors Protocol Passed - 08/31/2021 12:56 PM Passed - Visit with relevant provider in past 12 months or upcoming 90 days Recent Visits Date Type Provider Dept 08/23/21 Office Visit Kiera Salinas, [facility] 08/14/21 Office Visit Francie Cherry MD [facility] [address] 06/19/21 Office Visit Francie Cherry MD [facility] [address] 01/03/21 Office Visit Francie Cherry MD [facility] [address] 10/27/20 Office Visit Francie Cherry MD [facility] [address] 09/16/20 Telemedicine Rashida Bullock APRN, TOMER [facility] Showing recent visits within past 365 days and meeting all other requirements Future Appointments No visits were found meeting these conditions. Showing future appointments within next 90 days and meeting all other requirements fenofibrate (TRICOR) 145 MG Tablet [Pharmacy Med Name: FENOFIBRATE 145 MG TABLET] 90 Tablet 0 Sig: TAKE 1 TABLET BY MOUTH EVERY DAY Fibrates Protocol Passed - 08/31/2021 12:56 PM Passed - Visit with relevant provider in past 12 months or upcoming 90 days Recent Visits Date Type Provider Dept 08/23/21 Office Visit Kiera Salinas, [facility] [place] 08/14/21 Office Visit Francie Cherry MD [facility] [address] 06/19/21 Office Visit Francie Cherry MD [facility] [address] 01/03/21 Office Visit Francie Cherry MD [facility] [address] 10/27/20 Office Visit Francie Cherry MD [facility] [address] 09/16/20 Telemedicine Rashida Bullock APRN, BOTTOM STAINER [facility] Showing recent visits within past 365 days and meeting all other requirements Future Appointments No visits were found meeting these conditions. Showing future appointments within next 90 days and meeting all other requirements Passed - Lipid panel in past 12 months LDL Date Value Ref Range Status 06/09/2021 93 5 - 130 mg/dL Final 01/02/2021 107 0 - 130 mg/dL Final HDL CHOLESTEROL Date Value Ref Range Status 06/09/2021 40.9 >40 mg/dL Final CHOLESTEROL Date Value Ref Range Status 06/09/2021 171 <=200 mg/dL Final TRIGLYCERIDES Date Value Ref Range Status 06/09/2021 186 (H) <150 mg/dL Final VLDL Date Value Ref Range Status 06/09/2021 37 5 - 55 mg/dL Final CHOL/HDL RATIO Date Value Ref Range Status 06/09/2021 4.2 0.0 - 4.4 Final NON-HDL CHOLESTEROL Date Value Ref Range Status 06/09/2021 130.1 (H) <130 mg/dL Final IT NEGOTIATOR documented in this encounter Plan of Treatment Not on file documented as of this encounter Visit Diagnoses Diagnosis Essential hypertension Unspecified essential hypertension Anxiety Anxiety state, unspecified Insomnia, unspecified type Gastroesophageal reflux disease, unspecified whether esophagitis present Hyperlipidemia, unspecified hyperlipidemia type documented in this encounter Additional Health Concerns Infection Onset Date Last Indicated Resolved Time COVID - 19 08/14/2021 08/14/2021 09/03/2021 12:1 6 AM CREDIT NEGOTIATOR COVID - 19 09/26/2021 09/27/2021 10/17/2021 12:1 6 AM CDT COVID - 19 12/20/2021 12/20/2021 12/30/2021 12:1 6 AM CDT COVID - 19 05/24/2022 05/29/2022 06/08/2022 12:1 8 AM CREDIT NEGOTIATOR COVID - 19 07/12/2022 07/12/2022 07/22/2022 12:1 7 AM CREDIT NEGOTIATOR Respiratory Rule Out - RPA 01/14/2023 01/14/2023 0 01/14/2023 1:43 PM CDT COVID - 19 Confirmed 01/14/2023 01/14/2023 023 12:16 AM CDT Respiratory Rule-Out 10/15/2023 10/15/2023 024 1:49 PM CDT COVID - 19 10/15/2023 10/15/2023 10/15/2023 1:48 PM CDT Respiratory Rule-Out 05/21/2024 05/21/2024 024 12:52 PM CREDIT NEGOTIATOR COVID - 19 05/21/2024 05/21/2024 05/21/2024 12:5 1 PM CREDIT NEGOTIATOR COVID - 19 05/28/2024 05/28/2024 05/28/2024 3:25 PM CREDIT NEGOTIATOR Assessment Noted Time PHQ-9 Depression Total Score: 3 08/23/19 22 8:00 AM CREDIT NEGOTIATOR documented as of this encounter Care Teams Terminal Manager Relationship Specialty Start Date End Date Kiera Salinas, [facility] [address] [place] [address] PCP - General Physician Electrode Cleaning Machine Operator 08/23/21 Susanna Ba APRN, BOTTOM STAINER [address] [place] [address] Nurse Practitioner Advanced Practice Nurse 12/24/22 documented as of this encounter
--- OUTSIDE RECORDS SUMMARY | 2024-08-06 17:18 | XMS_ITS | Encounter Summary ---
Author Organization [facility] Address [address] [place] [address] Phone Care Team Providers Care Caseworker Name Role Phone Kiera Salinas [facility] Primary Care Pro vider Susanna Ba MEDICAL CHARGE ENTRY SPECIALIST, INTEL ANALYST Unavailable Reason for Visit * Reason Comments Medication Refill Encounter Details Date Type Department Care Team (Late st Contact Info) Description 08/23/2021 Refill [facility] - Primary Care - Darren [address] [place] [address] Francie Cherry MD [address] [place] [address] Medication Refill Social History Tobacco [...] COVID-19? No / Unsure 08/23/2021 8:29 AM CLIENT SERVICES ASSOCIATE documented as of this encounter Plan of Treatment Not on file documented as of this encounter Visit Diagnoses Diagnosis Essential hypertension Unspecified essential hypertension documented in this encounter Additional Health Concerns Infection Onset Date Last Indicated Resolved Time COVID - 19 08/14/2021 08/14/2021 09/03/2021 12:1 6 AM CLIENT SERVICES ASSOCIATE COVID - 19 09/26/2021 09/27/2021 10/17/2021 12:1 6 AM CDT COVID - 19 12/20/2021 12/20/2021 12/30/2021 12:1 6 AM CDT COVID - 19 05/24/2022 05/29/2022 06/08/2022 12:1 8 AM CLIENT SERVICES ASSOCIATE COVID - 19 07/12/2022 07/12/2022 07/22/2022 12:1 7 AM CLIENT SERVICES ASSOCIATE Respiratory Rule Out - RPA 01/14/2023 01/14/2023 0 01/14/2023 1:43 PM CDT COVID - 19 Confirmed 01/14/2023 01/14/2023 023 12:16 AM CDT Respiratory Rule-Out 10/15/2023 10/15/2023 024 1:49 PM CDT COVID - 19 10/15/2023 10/15/2023 10/15/2023 1:48 PM CDT Respiratory Rule-Out 05/21/2024 05/21/2024 024 12:52 PM CLIENT SERVICES ASSOCIATE COVID - 19 05/21/2024 05/21/2024 05/21/2024 12:5 1 PM CLIENT SERVICES ASSOCIATE COVID - 19 05/28/2024 05/28/2024 05/28/2024 3:25 PM CLIENT SERVICES ASSOCIATE Assessment Noted Time PHQ-9 Depression Total Score: 3 08/23/19 22 8:00 AM CLIENT SERVICES ASSOCIATE documented as of this encounter Care Teams Caseworker Relationship Specialty Start Date End Date Kiera Salinas, PAC [address] [place] [address] PCP - General Physician Residential Recycle Driver 08/23/21 Susanna Ba APRN, INTEL ANALYST [address] [place] [address] Nurse Practitioner Advanced Practice Nurse 12/24/22 documented as of this encounter
[2024-08-06 17:36] VITALS: BP 142/88; PULSE 68; RESP 20; TEMP 36.7; O2SAT 99
--- NOTE | 2024-08-06 18:08 | ED_ITS ---
HPI - General Adult General Chief complaint: Nausea/Vomiting/Diarrhea Stated complaint: nausea/stomach pain Time Seen by Provider: 08/06/24 18:08 Source: patient and RN notes reviewed Mode of arrival: ambulatory Limitations: no limitations History of Present Illness HPI narrative: 58 y/o female presented for c/o nausea, abdominal cramping vomiting, and diarrhea. Onset today. Denies specific pain, sob, wheezing, fever, hematochezia or melena. Related Data Home Medications ?Medication ?Instructions ?Recorded ?Confirmed ?Last Taken ?Type albuterol sulfate 90 mcg/actuation 1 puff inhalation Q4H 07/30/19 03/25/20 Unknown History aerosol inhaler (ProAir HFA) buspirone 10 mg tablet mg 08/06/24 Unknown History Allergies Allergy/AdvReac Type Severity Reaction Status Date / Time lorazepam Allergy Unknown Dizziness Verified 08/06/24 17:38 Review of Systems Review of Systems: CONSTITUTIONAL: Denies body aches, fever, chills ENT: Denies rhinorrhea, congestion CARDIOVASCULAR: Denies chest pain, palpitations, or edema. RESPIRATORY: Denies cough or dyspnea. GASTROINTESTINAL: Endorses abdominal cramping, nausea, vomiting, diarrhea. Denies hematochezia, melena, hematemesis GENITOURINARY: Denies dysuria, hematuria, or CVA tenderness. SKIN: Denies rash, itching, or wounds. MUSCULOSKELETAL: Denies back pain, joint pain, or myalgia. NEUROLOGIC: Denies headache, numbness, tingling, or weakness. All systems reviewed & are unremarkable except as noted in HPI and below PMFSH Past Medical History Medical History (Updated 08/06/24 @ 18:37 by Lilli Medley APRN) Dysfunction of both eustachian tubes Essential (primary) hypertension MDD (major depressive disorder), recurrent episode, moderate Mild persistent asthma with allergic rhinitis without complication Pollen allergies Psychophysiological insomnia Family History Family History Father Patient's father is , Onset Age: 57 Mother Family history of cardiovascular disease, Onset Age: 56 Social History Social History Social History: Smoking packs per day: 1.5 Smoking cigarettes per day: 30.0 Years smoked: 5 Smoking pack-years: 7.50 Smoking status: Former smoker Tobacco type: cigarettes Second hand tobacco smoke exposure: No Alcohol intake: never Substance use: never Substance use type: does not use Living arrangements: with family Occupation/Education: occupation Gender identity (if verbalized by the patient): Female Sexual Orientation (if Verbalized by the Patient): Straight or Heterosexual Comments At time of signature, I have reviewed and agree with nursing past medical, surgical, social and family history unless otherwise noted. Please see nursing chart for further information. There is no relevant family history pertinent to the presenting complaint Exam Narrative: GENERAL: Well-appearing, and in no acute distress. EYES: EOMI. Conjunctivae normal. ENT: Mucous membranes pink and moist. CHEST: No respiratory distress. Clear to auscultation. HEART: Regular rate and rhythm. No murmur appreciated. Normal peripheral pulses. ABDOMEN: abd soft, nondistended, normal active bowel sounds. Nontender abdomen, No guarding, rebound tenderness, asymmetry EXTREMITIES: Normal range of motion. No edema. SKIN: Warm, dry, no rash. Capillary refill normal. Normal skin turgor. NEURO: No focal deficits. Alert and oriented x3. PSYCH: Normal affect. Course Course Emergency Course: Patient is aware of diagnosis, understands and agrees to treatment plan. Anticipatory guidance given. Patient agrees to follow-up as directed and is aware of reasons to seek care at the emergency department. Portions of this record may have been created with voice recognition software Level of Care: Express Care Visit Vital Signs Vital signs: Vital Signs Temperature 98.1 F 08/06/24 17:36 Pulse Rate 08/06/24 17:36 Respiratory Rate 08/06/24 17:36 Blood Pressure 142/88 H 08/06/24 17:36 Pulse Oximetry 99 08/06/24 17:36 Oxygen Delivery Room Air 08/06/24 17:36 Temperature 98.1 F 08/06/24 17:36 Pulse Rate 08/06/24 17:36 Respiratory Rate 08/06/24 17:36 Blood Pressure 142/88 H 08/06/24 17:36 Pulse Oximetry 99 08/06/24 17:36 Oxygen Delivery Room Air 08/06/24 17:36 Medical Decision Making MDM Narrative Medical decision making narrative: Discussed physical exam findings; neg flu and covid. Declined ER transfer. rx ondansetron. Advised supportive measures and signs/symptoms to go to the ER. Pt is appropriate for outpt treatment and f/u. Differential Diagnosis Differential Diagnosis: Consider gastroenteritis, GERD, bowel obstruction or perforation, cholecystitis, appendicitis, hernia, mesenteric ischemia, pancreatitis, peritonitis, AAA Vital Signs Vital Signs: Vital Signs Temperature 98.1 F 08/06/24 17:36 Pulse Rate 68 08/06/24 17:36 Respiratory Rate 20 08/06/24 17:36 Blood Pressure 142/88 H 08/06/24 17:36 Pulse Oximetry 99 08/06/24 17:36 Oxygen Delivery Room Air 08/06/24 17:36 Temperature 98.1 F 08/06/24 17:36 Pulse Rate 68 08/06/24 17:36 Respiratory Rate 20 08/06/24 17:36 Blood Pressure 142/88 H 08/06/24 17:36 Pulse Oximetry 99 08/06/24 17:36 Oxygen Delivery Room Air 08/06/24 17:36 Discharge Plan Discharge Clinical Impression: Nausea, vomiting and diarrhea Patient Disposition: Home, Self-Care Condition: Stable Instructions: Antibiotic Form, Gastroenteritis (ED) Additional Instructions: Stay hydrated. Take small sips of fluid containing electrolytes frequently. Clear liquids (broth, jello, tea, sprite, pedialyte) [place] foods (bananas, rice, applesauce, toast, crackers) Avoid fatty, greasy, fried or spicy foods. Limit dairy until symptoms are improved. [id number] Imodium according to package directions for diarrhea Recommend probiotic such as align or lactobacillus to help with symptoms. You should go to the hospital if you experience persistent nausea and vomiting that does not resolve and does not allow you to tolerate any food or fluids, fevers, increasing abdominal pain, persistent diarrhea, dizziness, fainting, or for any other concerns. Follow up with primary care provider in 3 days. Patient Language: Amharic Prescriptions: New ondansetron 4 mg tablet,disintegrating 4 mg PO Q8H PRN (Reason: nausea and vomiting) Qty: 20 0RF No Action buspirone 10 mg tablet albuterol sulfate [ProAir HFA] 90 mcg/actuation HFA aerosol inhaler 1 puff INHALATION Q4H atorvastatin 40 mg tablet 40 mg PO DAILY Qty: 90 3RF azelastine 137 mcg (0.1 %) aerosol,spray 1 spray INTRANASAL Q12H Qty: 30 3RF famotidine 20 mg tablet 20 mg PO DAILY Qty: 90 2RF hydrochlorothiazide 12.5 mg tablet 12.5 mg PO DAILY Qty: 90 2RF terbutaline 5 mg tablet 5 mg PO TID Qty: 90 5RF montelukast [Singulair] 10 mg tablet 10 mg PO DAILY Qty: 90 3RF trazodone 100 mg tablet 100 mg PO .QHS Qty: 90 2RF fluconazole [Diflucan] 150 mg tablet 150 mg PO ONCE Qty: 2 0RF Rx Instructions: 1 tablet today, the second tablet 48 hours later. metronidazole 500 mg tablet 500 mg PO Q12H Qty: 14 0RF nitrofurantoin monohyd/m-cryst [Macrobid] 100 mg capsule 100 mg PO Q12H 5 Days Qty: 10 0RF Rx Instructions: must administer with a meal/food famotidine [Pepcid] 20 mg tablet 20 mg PO BID Qty: 20 0RF loratadine [Claritin] 10 mg tablet 10 mg PO DAILY PRN (Reason: allergy symptoms) Qty: 10 0RF promethazine 25 mg tablet 25 mg PO Q6H PRN (Reason: nausea and vomiting) Qty: 7 0RF amlodipine 5 mg tablet 5 mg PO DAILY Qty: 90 1RF fluoxetine 10 mg tablet 15 mg PO DAILY Qty: 135 2RF budesonide-formoterol [Symbicort] 160-4.5 mcg/actuation HFA aerosol inhaler 2 puff INHALATION Q12H Qty: 10.2 4RF dexamethasone 2 mg tablet 2 mg PO .COMPLEX Qty: 84 0RF Rx Instructions: 3 tabs BID x 7 days, 2 tabs BID x 7 days, 1 tab BID x 7 days azithromycin 250 mg tablet See Rx Instructions PO .COMPLEX Qty: 6 0RF Rx Instructions: take 500 mg today (day 1), then 250 mg for 4 days (days 2-5) PO cefdinir 300 mg capsule 300 mg PO Q12H Qty: 20 0RF buspirone 5 mg tablet 5 mg PO TID Qty: 90 0RF Follow-up/Referrals: Brad,DAGMAR Qureshi [Primary Care Provider] - Stand Alone Forms: Work/School Release IP
[2024-08-06 18:34] LABS: EDCOVIDSCREEN Negative (Negative); EDINFLUASCREEN Negative (Negative); EDINFLUBSCREEN Negative (Negative)
== END 2024-08-06 18:39 | disposition home or self-care (01) ==
PROVIDERS: Emergency Provider Nurse Practitioner Family; PCP Physician Assistant
DX: R11.2 Nausea with vomiting, unspecified (principal); R19.7 Diarrhea, unspecified; I10 Essential (primary) hypertension; Z87.891 Personal history of nicotine dependence; Z20.822 Contact with and (suspected) exposure to COVID-19
CPT/HCPCS: 87426; 87804; 99213; G0463

== ENCOUNTER 2024-08-31 14:05 | Emergency (ER) | payer OTHER, SELFPAY ==
--- NOTE | 2024-08-31 14:14 | ED.URI ---
HPI - URI/Sore Throat General Chief Complaint: Upper Respiratory Infection Stated Complaint: Cough Time Seen by Provider: 08/31/24 14:17 Source: patient and RN notes reviewed Mode of arrival: ambulatory Limitations: no limitations History of Present Illness HPI Narrative: 58-year-old female with history of asthma presents with concern for cough over 1 week that is not getting better. Reports she is out of her albuterol and nebulizer solution. She reports chills. MD elicited complaint: cough Related Data Home Medications ?Medication ?Instructions ?Recorded ?Confirmed ?Last Taken ?Type albuterol sulfate 90 mcg/actuation 1 puff inhalation Q4H 07/30/19 03/25/20 Unknown History aerosol inhaler (ProAir HFA) buspirone 10 mg tablet mg 08/06/24 Unknown History fluticasone propionate 50 intranasal 08/31/24 Unknown History mcg/actuation nasal spray,suspension omeprazole 20 mg capsule,delayed mg 08/31/24 Unknown History release Allergies Allergy/AdvReac Type Severity Reaction Status Date / Time lorazepam Allergy Unknown Dizziness Verified 08/31/24 14:17 Review of Systems Review of Systems: CONSTITUTIONAL: Reports malaise, chills. Denies sweats, or fever. EYES: Denies visual changes, redness, or discharge. ENT: Denies rhinorrhea, congestion, sinus pain, otalgia and sore throat. CARDIOVASCULAR: Denies chest pain, palpitations, or edema. RESPIRATORY: Reports cough. Denies dyspnea. GASTROINTESTINAL: Denies abdominal pain, nausea, vomiting, diarrhea SKIN: Denies rash or itching. MUSCULOSKELETAL: Denies myalgia. NEUROLOGIC: Denies headache. All systems reviewed & are unremarkable except as noted in HPI and below PMFSH Past Medical History Medical History (Updated 08/31/24 @ 14:24 by Tameka Victoria NP) Dysfunction of both eustachian tubes Essential (primary) hypertension MDD (major depressive disorder), recurrent episode, moderate Mild persistent asthma with allergic rhinitis without complication Pollen allergies Psychophysiological insomnia Family History Family History Father Patient's father is , Onset Age: 57 Mother Family history of cardiovascular disease, Onset Age: 56 Social History Social History Social History: Smoking packs per day: 1.5 Smoking cigarettes per day: 30.0 Years smoked: 5 Smoking pack-years: 7.50 Smoking status: Former smoker Tobacco type: cigarettes Second hand tobacco smoke exposure: No Alcohol intake: never Substance use: never Substance use type: does not use Living arrangements: with family Occupation/Education: occupation Gender identity (if verbalized by the patient): Female Sexual Orientation (if Verbalized by the Patient): Straight or Heterosexual Comments At time of signature, agree with nursing past medical, surgical, social and family history. There is no relevant family history pertinent to the presenting complaint Exam Narrative: GENERAL: Well-appearing, well-nourished, and in no acute distress. HEAD: Normocephalic EYES: PERRLA, conjunctivae clear ENT: Nares clear. Mucous membranes moist. TM pearly lund with sharp light reflex bilaterally; no tragal tenderness. Oropharynx not erythematous without lesions. Tonsils not enlarged and without exudate, no drooling, no hoarseness, no trismus, uvula midline. NECK: Supple. No lymphadenopathy CHEST: Clear to auscultation, breath sounds equal. No wheezing, rhonchi, rales, or stridor. No respiratory distress, speaks in full sentences. Cough noted HEART: Regular rate and rhythm. No murmur heard. SKIN: Warm, dry, no rash. NEURO: Alert and oriented x3. PSYCH: Normal mood and affect Course Course Emergency Course: Patient is aware of diagnosis, understands and agrees to treatment plan. Anticipatory guidance given. Patient agrees to follow-up as directed and is aware of reasons to seek care at the emergency department. Portions of this record may have been created with voice recognition software Level of Care: Express Care Visit Vital Signs Vital signs: Reviewed. MDM - URI/Sore Throat MDM Narrative Medical decision making narrative: Differential diagnosis considered: Mack virus, strep pharyngitis, allergic rhinitis, upper respiratory tract infection, sinusitis, rhinosinusitis, nasopharyngitis. viral pharyngitis, otitis media, otitis externa, pneumonia, bronchitis, viral cough syndrome, viral syndrome, and influenza. Exam findings show no acute concerns or changes; patient is non-toxic appearing and is in no distress. Patient is appropriate for outpatient treatment and follow-up. Lab Data Attestation: I reviewed the patient's lab results. Critical Care Time Critical Care Time Critical Care Time: No Discharge Plan Discharge Clinical Impression: Lower respiratory tract infection Patient Disposition: Home, Self-Care Condition: Stable Instructions: Antibiotic Form, Acute Cough (ED) Additional Instructions: Take medication prescribed Recommend antihistamine such as Benadryl at night time and Zyrtec or Carmen during the day Use inhaler/nebulizer as needed for cough, wheezing, shortness of breath or chest tightness. Also, recommend symptomatic treatment includes: rest, fluids, and increase humidity of the air at home. Recommend Acetaminophen as directed on the bottle to reduce fever, pain, headache. Avoid smoking/second-hand smoke. Please schedule a follow-up visit with your personal physician for further evaluation and treatment within 3-5days. If your symptoms persist, change or worsen significantly before you can contact your personal physician then please, without delay, go to the emergency department for further evaluation. Patient Language: Tristanian Prescriptions: New albuterol sulfate 2.5 mg /3 mL (0.083 %) solution for nebulization 2.5 mg inhalation Q4H PRN (Reason: shortness of breath or wheezing) Qty: 75 0RF prednisone 20 mg tablet 40 mg PO DAILY 5 Days Qty: 10 0RF doxycycline monohydrate 100 mg tablet 100 mg PO BID 7 Days Qty: 14 0RF No Action buspirone 10 mg tablet ondansetron 4 mg tablet,disintegrating 4 mg PO Q8H PRN (Reason: nausea and vomiting) Qty: 20 0RF omeprazole 20 mg capsule,delayed release(DR/EC) fluticasone propionate 50 mcg/actuation spray,suspension INTRANASAL albuterol sulfate [ProAir HFA] 90 mcg/actuation HFA aerosol inhaler 1 puff INHALATION Q4H atorvastatin 40 mg tablet 40 mg PO DAILY Qty: 90 3RF azelastine 137 mcg (0.1 %) aerosol,spray 1 spray INTRANASAL Q12H Qty: 30 3RF famotidine 20 mg tablet 20 mg PO DAILY Qty: 90 2RF hydrochlorothiazide 12.5 mg tablet 12.5 mg PO DAILY Qty: 90 2RF terbutaline 5 mg tablet 5 mg PO TID Qty: 90 5RF montelukast [Singulair] 10 mg tablet 10 mg PO DAILY Qty: 90 3RF trazodone 100 mg tablet 100 mg PO .QHS Qty: 90 2RF fluconazole [Diflucan] 150 mg tablet 150 mg PO ONCE Qty: 2 0RF Rx Instructions: 1 tablet today, the second tablet 48 hours later. metronidazole 500 mg tablet 500 mg PO Q12H Qty: 14 0RF nitrofurantoin monohyd/m-cryst [Macrobid] 100 mg capsule 100 mg PO Q12H 5 Days Qty: 10 0RF Rx Instructions: must administer with a meal/food famotidine [Pepcid] 20 mg tablet 20 mg PO BID Qty: 20 0RF loratadine [Claritin] 10 mg tablet 10 mg PO DAILY PRN (Reason: allergy symptoms) Qty: 10 0RF promethazine 25 mg tablet 25 mg PO Q6H PRN (Reason: nausea and vomiting) Qty: 7 0RF amlodipine 5 mg tablet 5 mg PO DAILY Qty: 90 1RF fluoxetine 10 mg tablet 15 mg PO DAILY Qty: 135 2RF budesonide-formoterol [Symbicort] 160-4.5 mcg/actuation HFA aerosol inhaler 2 puff INHALATION Q12H Qty: 10.2 4RF dexamethasone 2 mg tablet 2 mg PO .COMPLEX Qty: 84 0RF Rx Instructions: 3 tabs BID x 7 days, 2 tabs BID x 7 days, 1 tab BID x 7 days azithromycin 250 mg tablet See Rx Instructions PO .COMPLEX Qty: 6 0RF Rx Instructions: take 500 mg today (day 1), then 250 mg for 4 days (days 2-5) PO cefdinir 300 mg capsule 300 mg PO Q12H Qty: 20 0RF buspirone 5 mg tablet 5 mg PO TID Qty: 90 0RF Follow-up/Referrals: Brad,DAGMAR Qureshi [Primary Care Provider] -
[2024-08-31 14:19] VITALS: BP 143/81; PULSE 71; RESP 16; TEMP 36.4; O2SAT 100
--- OUTSIDE RECORDS SUMMARY | 2024-08-31 16:25 | XMS_ITS | Encounter Summary ---
Author Organization [facility] Address [address] [facility] [place] [address] Phone Care Team Providers Care Swing Ride Operator Name Role Phone Kiera Salinas PAC Primary Care Pro vider Susanna Ba SOFTWARE ASSET MANAGEMENT ANALYST, PATTERN DRAFTER Unavailable Reason for Referral * Radiology Services (Routine) - Closed Specialty Diagnoses / Procedures Referred By Suha talavera Referred To Contact Radiology Diagnoses Pre-op testing Procedures XR CHEST 2 VIEWS Sebastian Cadena MD [address] [place] [address] Phone: tel: fax: Referral ID Status Reason Start Date Expiration Date Visits Re quested Visits Authorized [id number] Closed 10/08/2023 1 1 * Radiology Services (Routine) - Closed Specialty Diagnoses / Procedures Referred By Suha talavera Referred To Contact Radiology Diagnoses Pre-op testing Procedures EKG 12 LEAD Sebastian Cadena MD [address] [place] [address] Phone: tel: fax: Referral ID Status Reason Start Date Expiration Date Visits Re quested Visits Authorized [id number] Closed 10/08/2023 1 1 Encounter Details Date Type Department Care Team (Latest Contact Info) Description 10/08/2023 Transcribe Orders [facility] Preop/Pacu II [address] [place] [address] Sebastian Cadena MD [address] [place] [address] Pre-op testing (Primary Dx) Social History Tobacco Use Types Packs/Day Years Used Date Smoking Tobacco: Former Cigarettes 0.5 7 Passive Smoke Exposure: Past Smokeless Tobacco: Never Comments:30 yrs ago Alcohol Use Standard Drinks/Week Comments No 0 (1 standard drink = 0.6 oz pur e alcohol) Personal Choice [facility] Utilities Answer Date Recorded In the past 12 months has [employer], gas, oil, or water company threatened to [...] often do you attend chur ch or pentecostalism services? More than 4 times per year 09/16/2023 Do you belong to any clubs o r organizations such as scientologist groups, unions, fraternal or athletic groups, or [...] Total Score - Questions 1-9 15 07/2022 [facility] - Occupational Stress Questionnaire Answer Date Recorded [...] place to sleep or slept in a half-way (including now)? No 09/16/2023 Education Answer Date [...] as of this encounter Plan of Treatment Upcoming Encounters Date Type Department Care Team (Late st Contact Info) Description 09/21/2024 3:00 PM CDT Office Visit [facility] - Internal Medicine - [place] [address] [place] [address] Kiera Salinas, PAC [address] [place] [address] documented as of this encounter Goals Goal [...] Ready to change Department associated with goal: [facility] Steps to achieve [...] Electronically signed by Shauna Kimbrough M.D. TW: TW Report ID: [id number] Reading Location: [id number] Procedure Note Shauna Kimbrough MD - 10/25/2023 [...] by Shauna Kimbrough M.D. TW: Report ID: [id number] Reading Location: [place] [address] IMPRESSION: No acute cardiopulmonary abnormality. us Sebastian Cadena MD IMG DIAGNOSTIC ORDERABLES Final Result * EKG 12 LEAD (10/24/2023 12:30 PM CDT) Ventricular Rate 69 BPM EXTERNAL EKG Atrial Rate 69 BPM EXTERNAL EKG P-R Interval 168 ms EXTERNAL EKG QRS Duration 84 ms EXTERNAL EKG Q-T Duration 400 ms EXTERNAL EKG QTC CALCULATION 428 ms EXTERNAL EKG P Crump 3 degrees EXTERNAL EKG R Crump -4 degrees EXTERNAL EKG T Crump 50 degrees EXTERNAL EKG 10/24/2023 12:3 0 PM CDT Impressions EXTERNAL EKG - 10/24/2023 6:20 PM CDT Normal sinus rhythm Normal ECG When compared with ECG of 10-JAN-2022 17:02, No significant change was found ~ Confirmed by Lupillo Snell ([id number]) on 10/24/2023 6:20:19 PM Narrative Procedure Note Lupillo Snell MD - 10/24/2023 IMPRESSION: Normal sinus rhythm Normal ECG When compared with ECG of 10-JAN-2022 17:02, No significant change was found ~ Confirmed by Lupillo Snell ([id number]) on 10/24/2023 6:20:19 PM us Sebastian Cadena [...] Respiratory Rule-Out 05/21/2024 05/21/2024 024 12:52 PM DIRECTORY CLERK COVID - 19 05/21/2024 05/21/2024 05/21/2024 12:5 1 PM DIRECTORY CLERK COVID - 19 05/28/2024 05/28/2024 05/28/2024 3:25 PM DIRECTORY CLERK Assessment Noted Time PHQ-9 Depression Total Score: 15 023 11:00 AM DIRECTORY CLERK documented as of this encounter Care Teams Swing Ride Operator Relationship Specialty Start Date End Date Kiera Salinas, PAC [address] [place] [address] PCP - General Physician Game Advisor 08/23/21 Susanna Ba APRN, PATTERN DRAFTER [address] [place] [address] Nurse Practitioner Advanced Practice Nurse 12/24/22 documented as of this encounter
--- OUTSIDE RECORDS SUMMARY | 2024-08-31 16:25 | XMS_ITS | Encounter Summary ---
Author Organization [facility] Address [address] [place] [address] Phone Care Team Providers Care Jukebox Coin Collector Name Role Phone Kiera Salinas PAC Primary Care Pro vider Susanna Ba APRN, FAMILY SERVICES MANAGER Unavailable Reason for Visit * Reason Comments Medication Refill Encounter Details Date Type Department Care Team (Late st Contact Info) Description 05/31/2023 Refill [facility] - Primary Care - [place] [address] [place] [address] Kiera Salinas, PAC [address] [facility] [address] Medication Refill Social History Tobacco [...] Dept 05/21/23 Office Visit Kiera Salinas PAC [facility] 05/20/23 Appointment Kiera Salinas PAC [facility] [place] 01/14/23 Office Visit Kiera Salinas PAC [facility] [place] Showing recent visits within past 182 days [...] Dept 05/21/23 Office Visit Kiera Salinas PAC [facility] 05/20/23 Appointment Kiera Salinas RL [facility] 01/14/23 Office Visit Kiera Salinas, RL [facility] [place] Showing recent visits within past 182 days and meeting all other requirements Future Appointments No visits were found meeting these conditions. Showing future appointments within next 90 days and meeting all other requirements Passed - Patient has established therapy with SSRI for at least 6 months FIC INCIDENT MANAGEMENT MANAGER documented in this encounter Plan of Treatment Upcoming Encounters Date Type Department Care Team (Late st Contact Info) Description 09/21/2024 3:00 PM CDT Office Visit [facility] Medical Group - Internal Medicine - [place] [address] [place] [address] Kiera Salinas, PAC [address] [place] [address] documented as of this encounter Goals Goal Patient Goal Type Associated Problems Recent Progress Patient-Stated? Author I want to work through my grief for my . Behavioral Health Improving(09/2022 11:11 AM CDT) Yes Tamika Madison, CONVEX GRINDER OPERATOR Note: Goal/Objective: Improve coping with grief related issues. Anticipated Time Frame for Goal Completion: 5 months Goal Reviewed with: patient Readiness to change: Ready to change Department associated with goal: [facility] Steps to achieve [...] Respiratory Rule-Out 05/21/2024 05/21/2024 024 12:52 PM TRAFFIC INCIDENT MANAGEMENT MANAGER COVID - 05/21/2024 05/21/2024 05/21/2024 12:5 1 PM TRAFFIC INCIDENT MANAGEMENT MANAGER COVID - 19 05/28/2024 05/28/2024 05/28/2024 3:25 PM TRAFFIC INCIDENT MANAGEMENT MANAGER Assessment Noted Time PHQ-9 Depression Total Score: 15 023 11:00 AM TRAFFIC INCIDENT MANAGEMENT MANAGER documented as of this encounter Care Teams Jukebox Coin Collector Relationship Specialty Start Date End Date Kiera Salinas, [facility] [address] [place] [address] PCP - General Physician Superintendent Renting Managing 08/23/21 Susanna Ba APRN, FAMILY SERVICES MANAGER [address] [place] [address] Nurse Practitioner Advanced Practice Nurse 12/24/22 documented as of this encounter
--- OUTSIDE RECORDS SUMMARY | 2024-08-31 16:25 | XMS_ITS | Encounter Summary ---
Author Organization [facility] Address [address] [place] [address] Phone Care Team Providers Care Competitive Shopper Name Role Phone Francie Cherry MD Primary Care Provider [phone] Kiera Salinas PAC Primary Care Pro vider Susanna Ba APRN, RESEARCH PROGRAM INTERN Unavailable Reason for Visit * Reason Comments Medication Refill Encounter Details Date Type Department Care Team (Late st Contact Info) Description 02/13/2021 Refill [facility] - Primary Care - [place] [address] [place] [address] Francie Cherry MD [address] [place] [address] Medication Refill Social History Tobacco [...] Dept 01/03/21 Office Visit Francie Cherry MD [facility] 10/27/20 [facility]20 Telemedicine Rashida Bullock APN, TOMER [facility] 07/05/20 Office Visit Brandon White MD [facility] Showing recent visits within past 365 days and meeting all other requirements Future Appointments No visits were found meeting these conditions. Showing future appointments within next 90 days and meeting all other requirements documented in this encounter Plan of Treatment Upcoming Encounters Date Type Department Care Team (Late st Contact Info) Description 09/21/2024 3:00 PM CDT Office Visit [facility] Medical [facility] - Internal Medicine - [place] [address] [place] [address] Kiera Salinas, [facility] [address] [place] [address] documented as of this encounter Visit Diagnoses Diagnosis Hyperlipidemia, unspecified hyperlipidemia type documented in this encounter Additional Health Concerns Infection Onset Date Last Indicated Resolved Time COVID - 19 04/24/2021 05/26/2021 06/15/2021 12:1 6 AM CARDIOPULMONARY PHYSICAL THERAPIST COVID - 19 08/14/2021 08/14/2021 09/03/2021 12:1 6 AM CARDIOPULMONARY PHYSICAL THERAPIST COVID - 19 09/26/2021 09/27/2021 10/17/2021 12:1 6 AM CDT COVID - 19 12/20/2021 12/20/2021 12/30/2021 12:1 6 AM CDT COVID - 19 05/24/2022 05/29/2022 06/08/2022 12:1 8 AM CARDIOPULMONARY PHYSICAL THERAPIST COVID - 19 07/12/2022 07/12/2022 07/22/2022 12:1 7 AM CARDIOPULMONARY PHYSICAL THERAPIST Respiratory Rule Out - RPA 01/14/2023 01/14/2023 0 01/14/2023 1:43 PM CDT COVID - 19 Confirmed 01/14/2023 01/14/2023 023 12:16 AM CDT Respiratory Rule-Out 10/15/2023 10/15/2023 024 1:49 PM CDT COVID - 19 10/15/2023 10/15/2023 10/15/2023 1:48 PM CDT Respiratory Rule-Out 05/21/2024 05/21/2024 024 12:52 PM CARDIOPULMONARY PHYSICAL THERAPIST COVID - 19 05/21/2024 05/21/2024 05/21/2024 12:5 1 PM CARDIOPULMONARY PHYSICAL THERAPIST COVID - 19 05/28/2024 05/28/2024 05/28/2024 3:25 PM CARDIOPULMONARY PHYSICAL THERAPIST documented as of this encounter Care Teams Competitive Shopper Relationship Specialty Start Date End Date Francie Cherry MD [address] [place] [address] PCP - General Family Medicine 10/27/20 08/22/21 Kiera Salinas, RL [address] [place] [address] PCP - General Physician Vest Baster 08/23/21 Susanna Ba APRN, RESEARCH PROGRAM INTERN [address] [place] [address] Nurse Practitioner Advanced Practice Nurse 12/24/22 documented as of this encounter
--- OUTSIDE RECORDS SUMMARY | 2024-08-31 16:25 | XMS_ITS | Encounter Summary ---
Author Organization [facility] Address [address] [place] [address] Phone Care Team Providers Care Associate Professor Of Library Media Name Role Phone Kiera Salinas PAC Primary Care Pro vider Susanna Ba APRN, MARKETING OPERATIONS SPECIALIST Unavailable Reason for Visit * Reason Comments Medication Refill Encounter Details Date Type Department Care Team (Late st Contact Info) Description 06/10/2023 Refill [facility] - Primary Care - [place] [address] [place] [address] Kiera Salinas, PAC [address] [address] Medication Refill Social History Tobacco [...] Provider Dept 05/21/23 [facility] Appointment Kiera Salinas PAC [facility] [place] 01/14/23 Office Visit Kiera Salinas, PAC [facility] [place] Showing recent visits within past 182 days and meeting all other requirements Future Appointments No visits were found meeting these conditions. Showing future appointments within next 90 days and meeting all other requirements Passed - Patient has established therapy with Buspirone for at least 6 months CTOR OF GRADUATE ADMISSIONS documented in this encounter Plan of Treatment Upcoming Encounters Date Type Department Care Team (Late st Contact Info) Description 09/21/2024 3:00 PM CDT [facility] - [place] [address] [place] [address] Kiera Salinas PAC [address] [place] [address] documented as of this encounter Goals Goal [...] to change Department associated with goal: [facility] Steps [...] Rule-Out 05/21/2024 05/21/2024 024 12:52 PM DIRECTOR OF GRADUATE ADMISSIONS COVID - 19 05/21/2024 05/21/2024 05/21/2024 12:5 1 PM DIRECTOR OF GRADUATE ADMISSIONS COVID - 19 05/28/2024 05/28/2024 05/28/2024 3:25 PM DIRECTOR OF GRADUATE ADMISSIONS Assessment Noted Time PHQ-9 Depression Total Score: 15 023 11:00 AM DIRECTOR OF GRADUATE ADMISSIONS documented as of this encounter Care Teams Associate Professor Of Library Media Relationship Specialty Start Date End Date Kiera Salinas PAC [address] [place] [address] PCP - General Physician Die Sinking Machine Operator 08/23/21 Susanna Ba BUYER LIAISON, MARKETING OPERATIONS SPECIALIST [address] [place] [address] Nurse Practitioner Advanced Practice Nurse 12/24/22 documented as of this encounter
--- OUTSIDE RECORDS SUMMARY | 2024-08-31 16:25 | XMS_ITS | Encounter Summary ---
Author Organization [facility] Address [address] [place] [address] Phone Care Team Providers Care Medical Records Director Name Role Phone Kiera Salinas PAC Primary Care Pro vider Susanna Ba APRN, MACHINE CHOCOLATE MOLDER Unavailable Reason for Visit * Reason Comments Medication Refill Encounter Details Date Type Department Care Team (Late st Contact Info) Description 03/06/2023 Refill [facility] - Primary Care - [place] [address] [place] [address] Kiera Salinas, PAC [address] [place] [address] Medication Refill Social History Tobacco [...] Office Visit Kiera Salinas, PAC [facility] [place] 10/15/22 Office Visit Kiera Salinas, PAC [facility] [place] 09/14/22 Office Visit Kiera Salinas, PAC [facility] [place] 08/08/22 Office Visit Kiera Salinas, PAC [facility] [place] 07/18/22 Office Visit Kiera Salinas, PAC [facility] [place] 05/24/22 Office Visit Kiera Salinas, PAC [facility] [place] Showing recent visits within past 365 days [...] Dept 01/14/23 Office Visit [facility]iera [facility], RL [facility] 10/15/22 Office Visit Kiera Salinas, RL [facility] 09/14/22 Office Visit Kiera Salinas, RL [facility] [place] Showing recent visits within past 182 days [...] Description 09/21/2024 3:00 PM CDT Office Visit [facility] Medical Group - Internal Medicine - [place] [address] [place] [address] Kiera Salinas PAC [address] [address] documented as of this encounter Goals Goal [...] Ready to change Department associated with goal: [facility] Steps [...] Respiratory Rule-Out 05/21/2024 05/21/2024 024 12:52 PM AUTOMOTIVE ENGINEER COVID - 19 05/21/2024 05/21/2024 05/21/2024 12:5 1 PM AUTOMOTIVE ENGINEER COVID - 19 05/28/2024 05/28/2024 05/28/2024 3:25 PM AUTOMOTIVE ENGINEER Assessment Noted Time PHQ-9 Depression Total Score: 15 023 11:00 AM AUTOMOTIVE ENGINEER documented as of this encounter Care Teams Medical Records Director Relationship Specialty Start Date End Date Kiera Salinas PAC [address] [place] [address] PCP - General Physician Global Marketing Coordinator 08/23/21 Susanna Ba APRN, MACHINE CHOCOLATE MOLDER [address] [place] [address] Nurse Practitioner Advanced Practice Nurse 12/24/22 documented as of this encounter
--- OUTSIDE RECORDS SUMMARY | 2024-08-31 16:25 | XMS_ITS | Encounter Summary ---
Author Organization [facility] Address [address] [place] [address] Phone Care Team Providers Care Cable Installation Technician Name Role Phone Francie Cherry MD Primary Care Provider [phone] Kiera Salinas PAC Primary Care Pro vider Susanna Ba APRN, BALL POINT SPLITTER Unavailable Reason for Visit * Reason Comments Medication Refill Encounter Details Date Type Department Care Team (Late st Contact Info) Description 05/14/[address] [facility] - Primary Care - [place] [address] [place] [address] Francie Cherry MD [address] [place] [address] Medication Refill Social History Tobacco [...] Dept 01/03/21 Office Visit Francie Cherry MD [facility] 10/27/20 Office Visit Francie Cherry MD [facility] 09/16/20 Telemedicine Rashida Bullock APRN, CNP [facility] 07/05/20 Office Visit Brandon White MD [facility] Showing recent visits within past 365 days and meeting all other requirements Future Appointments Date Type Provider Dept 06/09/21 Appointment Lab, [facility] 06/16/21 Appointment Francie Cherry MD [facility] Showing future appointments within next 90 days and meeting all other requirements BLENDER documented in this encounter Plan of Treatment Upcoming Encounters Date Type Department Care Team (Late st Contact Info) Description 09/21/2024 3:00 PM CDT Office Visit [facility] Medical Group - Internal Medicine - [place] [address] [place] [address] Kiera Salinas, PAC [address] [place] [address] documented as of this encounter Visit Diagnoses Diagnosis Hyperlipidemia, unspecified hyperlipidemia type documented in this encounter Additional Health Concerns Infection Onset Date Last Indicated Resolved Time COVID - 19 04/24/2021 05/26/2021 06/15/2021 12:1 6 AM LEAD BLENDER COVID - 19 08/14/2021 08/14/2021 09/03/2021 12:1 6 AM LEAD BLENDER COVID - 19 09/26/2021 09/27/2021 10/17/2021 12:1 6 AM CDT COVID - 19 12/20/2021 12/20/2021 12/30/2021 12:1 6 AM CDT COVID - 19 05/24/2022 05/29/2022 06/08/2022 12:1 8 AM LEAD BLENDER COVID - 19 07/12/2022 07/12/2022 07/22/2022 12:1 7 AM LEAD BLENDER Respiratory Rule Out - RPA 01/14/2023 01/14/2023 0 01/14/2023 1:43 PM CDT COVID - 19 Confirmed 01/14/2023 01/14/2023 023 12:16 AM CDT Respiratory Rule-Out 10/15/2023 10/15/2023 024 1:49 PM CDT COVID - 19 10/15/2023 10/15/2023 10/15/2023 1:48 PM CDT Respiratory Rule-Out 05/21/2024 05/21/2024 024 12:52 PM LEAD BLENDER COVID - 19 05/21/2024 05/21/2024 05/21/2024 12:5 1 PM LEAD BLENDER COVID - 19 05/28/2024 05/28/2024 05/28/2024 3:25 PM LEAD BLENDER documented as of this encounter Care Teams Cable Installation Technician Relationship Specialty Start Date End Date Francie Cherry MD [address] [place] [address] PCP - General Family Medicine 10/27/20 08/22/21 Kiera Salinas, RL [address] [place] [address] PCP - General Physician Tariff Clerk 08/23/21 Susanna Ba APRN, BALL POINT SPLITTER [address] [place] [address] Nurse Practitioner Advanced Practice Nurse 12/24/22 documented as of this encounter
--- OUTSIDE RECORDS SUMMARY | 2024-08-31 16:25 | XMS_ITS | Encounter Summary ---
Author Organization [facility] Address [address] [place] [address] Phone Care Team Providers Care Photovoltaic Power Systems Engineer Name Role Phone Francie Cherry MD Primary Care Provider [phone] Kiera Salinas PAC Primary Care Pro vider Susanna Ba APRN, BELT BUILDER HELPER Unavailable Reason for Visit * Reason Comments Medication Refill Encounter Details Date Type Department Care Team (Late st Contact Info) Description 04/20/2021 Refill [facility] - Primary Care - [place] [address] [place] [address] Francie Cherry MD [address] [place] [address] Medication Refill Social History Tobacco [...] Description 09/21/2024 3:00 PM CDT [facility] Medicine - [place] [address] [place] [address] Kiera Salinas, [facility] [address] [place] [address] documented as of this encounter Visit Diagnoses Diagnosis Anxiety Anxiety state, unspecified Essential hypertension Unspecified essential hypertension Seasonal allergies Allergic rhinitis, cause unspecified documented in this encounter Additional Health Concerns Infection Onset Date Last Indicated Resolved Time COVID - 19 04/24/2021 05/26/2021 06/15/2021 12:1 6 AM WINERY CELLAR HAND COVID - 19 08/14/2021 08/14/2021 09/03/2021 12:1 6 AM WINERY CELLAR HAND COVID - 19 09/26/2021 09/27/2021 10/17/2021 12:1 6 AM CDT COVID - 19 12/20/2021 12/20/2021 12/30/2021 12:1 6 AM CDT COVID - 19 05/24/2022 05/29/2022 06/08/2022 12:1 8 AM WINERY CELLAR HAND COVID - 19 07/12/2022 07/12/2022 07/22/2022 12:1 7 AM WINERY CELLAR HAND Respiratory Rule Out - RPA 01/14/2023 01/14/2023 0 01/14/2023 1:43 PM CDT COVID - 19 Confirmed 01/14/2023 01/14/2023 023 12:16 AM CDT Respiratory Rule-Out 10/15/2023 10/15/2023 024 1:49 PM CDT COVID - 19 10/15/2023 10/15/2023 10/15/2023 1:48 PM CDT Respiratory Rule-Out 05/21/2024 05/21/2024 024 12:52 PM WINERY CELLAR HAND COVID - 19 05/21/2024 05/21/2024 05/21/2024 12:5 1 PM WINERY CELLAR HAND COVID - 05/28/2024 05/28/2024 05/28/2024 3:25 PM WINERY CELLAR HAND documented as of this encounter Care Teams Photovoltaic Power Systems Engineer Relationship Specialty Start Date End Date Francie Cherry MD [address] [place] [address] PCP - General Family Medicine 10/27/20 08/22/21 Kiera Salinas, RL [address] [place] [address] PCP - General Physician Welfare Specialist 08/23/21 Susanna Ba APRN, BELT BUILDER HELPER [address] [place] [address] Nurse Practitioner Advanced Practice Nurse 12/24/22 documented as of this encounter
--- OUTSIDE RECORDS SUMMARY | 2024-08-31 16:26 | XMS_ITS | Encounter Summary ---
Author Organization [facility] Address [address] [facility] [place] [address] Phone Care Team Providers Care Lettuce Cutter Name Role Phone Kiera Salinas PAC Primary Care Pro vider Susanna Ba APRN, SCALLOPER Unavailable Reason for Visit * Reason Comments Medication Refill Encounter Details Date Type Department Care Team (Late st Contact Info) Description 01/28/2022 Refill [facility]Care Medical [facility] - Primary Care - [place] [address] [place] [address] Kiera Salinas, PAC [address] [place] [address] Medication Refill Social History Tobacco [...] Dept 12/20/21 Office Visit Kiera Salinas PAC [facility] [place] 08/23/21 Office Visit Kiera Salinas PAC [facility] [place] 08/14/21 Office Visit Francie Cherry MD [facility] Showing recent visits within past 182 days and meeting all other requirements Future Appointments Date Type Provider Dept 03/22/22 Appointment Kiera Salinas PAC [facility] [place] Showing future appointments within next 90 days [...] Dept 12/20/21 Office Visit Kiera Salinas PAC [facility] [place] 08/23/21 Office Visit Kiera Salinas PAC [facility] [place] 08/14/21 Office Visit Francie Cherry MD [facility] 06/19/21 Office Visit Francie Cherry MD [facility] Showing recent visits within past 365 days and meeting all other requirements Future Appointments Date Type Provider Dept 03/22/22 Appointment Kiera Salinas PAC [facility] [place] Showing future appointments within next 90 days [...] Office Visit Kiera Salinas PAC [facility] [place] 08/23/21 Office Visit Kiera Salinas PAC [facility] [place] 08/14/21 Office Visit Francie Cherry MD [facility] Showing recent visits within past 182 days and meeting all other requirements Future Appointments Date Type Provider Dept 03/22/22 Appointment Kiera Salinas PAC [facility] [place] Showing future appointments within next 90 days [...] Dept 12/20/21 Office Visit Kiera Salinas PAC [facility] [place] 08/23/21 Office Visit Kiera Salinas PAC [facility] [place] 08/14/21 Office Visit Francie [facility] MD [facility] 06/19/21 Office Visit Francie Cherry MD [facility] Showing recent visits within past 365 days and meeting all other requirements Future Appointments Date Type Provider Dept 03/22/22 Appointment Kiera Salinas PAC [facility] Showing future appointments within next 90 days and meeting all other requirements Passed - GFR on record in past 12 months GFR, EST. NONAFRICAN Date Value Ref Range Status 01/10/2022 >60 >=60 Final documented in this encounter Plan of Treatment Upcoming Encounters Date Type Department Care Team (Late st Contact Info) Description 09/21/2024 3:00 PM CDT Office Visit [facility] Medical Group - Internal Medicine - [place] [address] [place] [address] Kiera Salinas, PAC [address] [place] [address] documented as of this encounter Visit Diagnoses Diagnosis Insomnia, unspecified type Hyperlipidemia, unspecified hyperlipidemia type Anxiety Anxiety state, unspecified Essential hypertension Unspecified essential hypertension documented in this encounter Additional Health Concerns Infection Onset Date Last Indicated Resolved Time COVID - 19 05/24/2022 05/29/2022 06/08/2022 12:1 8 AM STORES ASSISTANT COVID - 19 07/12/2022 07/12/2022 07/22/2022 12:1 7 AM STORES ASSISTANT Respiratory Rule Out - RPA 01/14/2023 01/14/2023 0 01/14/2023 1:43 PM CDT COVID - 19 Confirmed 01/14/2023 01/14/2023 023 12:16 AM CDT Respiratory Rule-Out 10/15/2023 10/15/2023 024 1:49 PM CDT COVID - 19 10/15/2023 10/15/2023 10/15/2023 1:48 PM CDT Respiratory Rule-Out 05/21/2024 05/21/2024 024 12:52 PM STORES ASSISTANT COVID - 19 05/21/2024 05/21/2024 05/21/2024 12:5 1 PM STORES ASSISTANT COVID - 19 05/28/2024 05/28/2024 05/28/2024 3:25 PM STORES ASSISTANT Assessment Noted Time PHQ-9 Depression Total Score: 3 08/23/19 22 8:00 AM STORES ASSISTANT documented as of this encounter Care Teams Lettuce Cutter Relationship Specialty Start Date End Date Kiera Salinas, PAC [address] [place] [address] PCP - General Physician Supervisor Felting 08/23/21 Susanna Ba APRN, SCALLOPER [address] [place] [address] Nurse Practitioner Advanced Practice Nurse 12/24/22 documented as of this encounter
--- OUTSIDE RECORDS SUMMARY | 2024-08-31 16:26 | XMS_ITS | Encounter Summary ---
Author Organization [facility] Address [address] [facility] [place] [address] Phone Care Team Providers Care Sanforizer Name Role Phone Kiera Salinas PAC Primary Care Pro vider Susanna Ba APRN, REFURBISH TECHNICIAN Unavailable Reason for Visit * Reason Comments Medication Refill Encounter Details Date Type Department Care Team (Late st Contact Info) Description 08/02/2022 Refill [facility] Medical [facility] - Primary Care - [place] [address] [place] [address] Kiera Salinas, PAC [address] [place] [address] Medication Refill Social History Tobacco [...] Coronavirus/COVID-19? No / Unsure 07/17/2022 1:47 PM HERPETOLOGY TEACHER documented as of this encounter Miscellaneous Notes * Telephone Encounter - Tameka Archibald RN - 08/06/2022 9:34 AM CST Name from pharmacy: BUSPIRONE HCL 10 MG TABLET Will file in chart as: busPIRone (BUSPAR) 10 MG Tablet The original prescription was discontinued on 07/18/2022 by Kiera Salinas PAC for thefollowing reason: Dose adjustment. Renewing this prescription may not be appropriate. ETOLOGY TEACHER documented in this encounter Plan of Treatment Upcoming Encounters Date Type Department Care Team (Late st Contact Info) Description 09/21/2024 3:00 PM CDT [facility] - [place] [address] [place] [address] Kiera Salinas PAC [address] [place] [address] documented as of this encounter Visit Diagnoses [...] Respiratory Rule-Out 05/21/2024 05/21/2024 024 12:52 PM HERPETOLOGY TEACHER COVID - 19 05/21/2024 05/21/2024 05/21/2024 12:5 1 PM HERPETOLOGY TEACHER COVID - 19 05/28/2024 05/28/2024 05/28/2024 3:25 PM HERPETOLOGY TEACHER Assessment Noted Time PHQ-9 Depression Total Score: 3 08/23/19 8:00 AM HERPETOLOGY TEACHER documented as of this encounter Care Teams Sanforizer Relationship Specialty Start Date End Date Kiera Salinas, [facility] [address] [place] [address] PCP - General Physician Fishing Rod Trimmer 08/23/21 Susanna Ba APRN, REFURBISH TECHNICIAN [address] [place] [address] Nurse Practitioner Advanced Practice Nurse 12/24/22 documented as of this encounter
--- OUTSIDE RECORDS SUMMARY | 2024-08-31 16:26 | XMS_ITS | Encounter Summary ---
Author Organization [facility] Address [address] [place] [address] Phone Care Team Providers Care Busgirl Name Role Phone Kiera Salinas PAC Primary Care Pro vider Susanna Ba APRN, PBX TEACHER Unavailable Reason for Visit * Reason Comments Medication Refill Encounter Details Date Type Department Care Team (Late st Contact Info) Description 02/19/2023 Refill [facility] - Primary Care - [place] [address] [place] [address] Kiera Salinas, PAC [address] [facility] [place] [address] Medication Refill Social History Tobacco [...] Office Visit Kiera Salinas, PAC [facility] [place] 10/15/22 Office Visit Kiera Salinas, PAC [facility] [place] 09/14/22 Office Visit Kiera Salinas, PAC [facility] [place] 08/08/22 Office Visit Kiera Salinas, PAC [facility] [place] 07/18/22 Office Visit Kiera Salinas, PAC [facility] [place] 05/24/22 Office Visit Kiera Salinas, PAC [facility] [place] Showing recent visits within past 365 days and meeting all other requirements Future Appointments No visits were found meeting these conditions. Showing future appointments within next 90 days and meeting all other requirements documented in this encounter Plan of Treatment Upcoming Encounters Date Type Department Care Team (Late st Contact Info) Description 09/21/2024 3:00 PM CDT Office Visit [facility] Medical Group - Internal Medicine - [place] [address] [place] [address] Kiera Salinas, RL [address] [place] [address] documented as of this encounter Goals Goal Patient Goal Type Associated Problems Recent Progress Patient-Stated? Author I want to work through my grief for my . Behavioral Health Improving(09/2022 11:11 AM CDT) Yes Tamika [place], RESEARCH AND DEVELOPMENT CHEMIST Note: Goal/Objective: Improve coping with grief related issues. Anticipated Time Frame for Goal Completion: 5 months Goal Reviewed with: patient Readiness to change: Ready to change Department associated with goal: [facility] BE[facility]AVIORAL HE[facility] SERVICES Steps to achieve goal: [...] Respiratory Rule-Out 05/21/2024 05/21/2024 024 12:52 PM OIL HEAT TECHNICIAN COVID - 05/21/2024 05/21/2024 05/21/2024 12:5 1 PM OIL HEAT TECHNICIAN COVID - 19 05/28/2024 05/28/2024 05/28/2024 3:25 PM OIL HEAT TECHNICIAN Assessment Noted Time PHQ-9 Depression Total Score: 15 023 11:00 AM OIL HEAT TECHNICIAN documented as of this encounter Care Teams Busgirl Relationship Specialty Start Date End Date Kiera Salinas, [facility] [address] [place] [address] PCP - General Physician School Superintendent 08/23/21 Susanna Ba APRN, PBX TEACHER [address] [place] [address] Nurse Practitioner Advanced Practice Nurse 12/24/22 documented as of this encounter
--- OUTSIDE RECORDS SUMMARY | 2024-08-31 16:26 | XMS_ITS | Encounter Summary ---
Author Organization [facility] Address [address] [place] [address] Phone Care Team Providers Care Gravity Meter Operator Name Role Phone Kiera Salinas PAC Primary Care Pro vider Susanna Ba APRN, BOOKSTORE CLERK Unavailable Reason for Visit * Reason Comments Medication Refill Encounter Details Date Type Department Care Team (Late st Contact Info) Description 11/09/2022 Refill [facility] Medical Group - Internal Medicine - [place] [address] [place] [address] Kiera Salinas, PAC [address] [facility] [place] [address] Medication Refill Social History Tobacco [...] Office Visit Kiera Salinas PAC [facility] [place] 09/14/22 Office Visit Kiera Salinas PAC [facility] [place] 08/08/22 Office Visit Kiera Salinas PAC [facility] [place] 07/18/22 Office Visit Kiera Salinas PAC [facility] [place] 05/24/22 Office Visit Kiera Salinas PAC [facility] [place] Showing recent visits within past 182 days and meeting all other requirements Future Appointments Date Type Provider Dept 01/14/23 Appointment Kiera Salinas PAC [facility] [place] Showing future appointments within next 90 days and meeting all other requirements Passed - Has an encounter in the past 6 months with a depression, anxiety, adjustment disorder, OCD, or PTSD visit diagnosis documented in this encounter Plan of Treatment Upcoming Encounters Date Type Department Care Team (Late st Contact Info) Description 09/21/2024 3:00 PM CDT Office Visit [facility] Medical Group - Internal Medicine - [place] [address] [place] [address] Kiera Salinas, PAC [address] [place] [address] documented as of this encounter Goals Goal Patient Goal Type Associated Problems Recent Progress Patient-Stated? Author I want to work through my grief for my . Behavioral Health Improving(09/2022 11:11 AM CDT) Yes Tamika Madison, TECHNICAL REP Note: Goal/Objective: Improve coping with grief related issues. Anticipated Time Frame for Goal Completion: 5 months Goal Reviewed with: patient Readiness to change: Ready to change Department associated with goal: [facility]IOR[facility] HE[facility] Steps to [...] Respiratory Rule-Out 05/21/2024 05/21/2024 024 12:52 PM CLEAN RICE GRADER AND REEL TENDER COVID - 19 05/21/2024 05/21/2024 05/21/2024 12:5 1 PM CLEAN RICE GRADER AND REEL TENDER COVID - 19 05/28/2024 05/28/2024 05/28/2024 3:25 PM CLEAN RICE GRADER AND REEL TENDER Assessment Noted Time PHQ-9 Depression Total Score: 15 023 11:00 AM CLEAN RICE GRADER AND REEL TENDER documented as of this encounter Care Teams Gravity Meter Operator Relationship Specialty Start Date End Date Kiera Salinas, [facility] [address] [place] [address] PCP - General Physician Insurance Loss Control Surveyor 08/23/21 Susanna Ba APRN, BOOKSTORE CLERK [address] [place] [address] Nurse Practitioner Advanced Practice Nurse 12/24/22 documented as of this encounter
--- OUTSIDE RECORDS SUMMARY | 2024-08-31 16:26 | XMS_ITS | Clinical Summary ---
Author Organization [facility] Address [address] [place] [address] Phone Care Team Providers Care Health Researcher Name Role Phone Kiera Salinas PAC Primary Care Pro vider Susanna Ba APRN, RAILROAD TRACK INSPECTOR Unavailable Allergies No known active allergies Medications albuterol (PROVENTIL, VENTOLIN) (2.5 MG/3ML) 0.083% Nebulizer SolnIndications :Moderate persistent asthma, unspecified whether complicated every 6 hours as needed. 01/23/20 16 Active fluticasone (Flonase Allergy Relief) 50 MCG/ACT SuspensionIndic ations:Allergic rhinitis, unspecified seasonality, unspecified trigger 2 Sprays by Nasal route daily as needed for Allergies. Use in each nostril as directed. 16 g 2 09/18/19 24 Active cetirizine (ZyrTEC) 10 MG Tablet Take 1 Tablet by mouth daily. 90 Tablet 02/27/20 24 Active HYDROcodone-karie taminophen (NORCO) 5-325 MG Tablet Take 1 Tablet by mouth every 4 hours as needed for Moderate or more severe pain. Active busPIRone (BUSPAR) 10 MG Tablet Take 1 tablet by mouth twice daily 180 Tablet 04/15/20 24 Active ALPRAZolam (XANAX) 0.25 MG TabletIndicatio ns:Anxiety TAKE 1 TABLET BY MOUTH TWICE DAILY NEEDED FOR SLEEP AND FOR ANXIETY 32 Tablet 05/19/20 24 Active Additional Information Patient not taking.Reported on 05/21/2024 celecoxib (CeleBREX) 200 MG Capsule Take 1 Capsule by mouth daily. 04/15/20 24 Active hydroCHLOROthia zide 12.5 MG TabletIndicatio ns:Essential hypertension Take 1 tablet by mouth once daily 180 Tablet 08/12/19 25 Active omeprazole (PriLOSEC) 20 MG CAPSULE DELAYED RELEASEIndicati ons:Gastroesoph ageal reflux disease, unspecified whether esophagitis present Take 1 capsule by mouth twice daily 300 Capsule 08/12/19 25 Active traZODone (DESYREL) 100 MG TabletIndicatio ns:Insomnia, unspecified TAKE 1 TABLET BY MOUTH ONCE DAILY AT NIGHT 90 Tablet 08/12/19 25 Active omeprazole (PriLOSEC) 20 MG CAPSULE DELAYED RELEASEIndicati ons:Gastroesoph ageal reflux disease, unspecified whether esophagitis present Take 1 Capsule by mouth 2 times daily. 180 Capsule 1 09/18/19 24 025 Discontinued hydroCHLOROthia zide 12.5 MG TabletIndicatio ns:Essential hypertension Take 1 Tablet by mouth daily. 90 Tablet 1 11/01/19 24 025 Discontinued traZODone (DESYREL) 100 MG TabletIndicatio ns:Insomnia, unspecified TAKE 1 TABLET BY MOUTH EVERY NIGHT. 90 Tablet 04/15/20 24 025 Discontinued Active Problems Problem Noted Date Diagnosed Date Screening for colon cancer 04/03/2024 Grief 08/23/2022 Right-sided chest pain 01/10/2022 Insomnia 10/27/2020 Hyperlipidemia 10/27/2020 Allergic rhinitis 10/27/2020 IFG (impaired fasting glucose) 10/27/2020 OAB (overactive bladder) 10/27/2020 Obesity, Class III, BMI 40-49.9 (morbid obesity) 10/27/2020 Overview (09/18/2023): Getting Pk from a weight loss clinic Seasonal allergies 09/30/2020 High blood pressure Gastroesophageal reflux disease Asthma Anxiety Encounters Date Type Department Care Team Description 08/12/2024 Refill [facility] - [place] [address] [place] [address] Kiera Salinas, RL Medication Refill from Last 3 Months Immunizations Immunization Administration Dates Next Due Covid-19 Vaccine, Vector-nr, Rs-ad26, Pf, 0.5 Ml (LAMIN/J&Corimmun) 10/12/2020 Influenza Vaccine, MDCK,quad rivalent, pres free 04/09/2017 Influenza Vaccine, Quadrivalent, PF 04/08,04/27/2021,03/31/2020,05/04,04/01/2018 Pneumococcal Vaccine - 13 Valent 04/24/2017 Pneumococcal Vaccine Adult - 23 Valent 5 Pneumococcal conjugate PCV20 , polysaccharide CMW590 conjugate, adjuvant, PF 05/01/2023 TDAP Vaccine 05/13/2019 [...] Smoking Tobacco: Former Cigarettes 0.5 7 1 981 - 1987 Passive Smoke Exposure: Past Smokeless Tobacco: Never Tobacco Cessation:Counseling Given: No Comments:30 yrs ago Alcohol Use Standard Drinks/Week Comments Yes 0 (1 standard drink = 0.6 oz pur e alcohol) OCCASIONAL SOCIAL AHC Utilities Answer Date Recorded In the past 12 months has e electric, gas, oil, or water company [...] often do you attend chur ch or anabaptist services? More than 4 times per year 09/16/2023 Do you belong to any clubs o r organizations such as denominational groups, unions, fraternal or athletic groups, or [...] Total Score - Questions 1-9 0 02/05 [facility] - Occupational Stress [...] place to sleep or slept in a snf (including now)? No 09/16/2023 Education Answer Date [...] Comments Blood Pressure 132/88 05/28/2024 5:30 PM CRACKER AND COOKIE MACHINE OPERATOR Pulse 65 05/28/2024 5:30 PM CRACKER AND COOKIE MACHINE OPERATOR Temperature 35.9 C (96.7 F) 05/28/2024 1:57 PM CRACKER AND COOKIE MACHINE OPERATOR Respiratory Rate 15 05/28/2024 5:30 PM CRACKER AND COOKIE MACHINE OPERATOR Oxygen Saturation 100% 05/28/2024 5:30 PM CRACKER AND COOKIE MACHINE OPERATOR Inhaled Oxygen Concentration - - Weight 84.8 kg (187 lb) 05/28/2024 1:57 PM CRACKER AND COOKIE MACHINE OPERATOR Height 160 cm (5' 3 ) 05/28/2024 1:57 PM CRACKER AND COOKIE MACHINE OPERATOR Body Mass Index 33.13 05/28/2024 1:57 PM CRACKER AND COOKIE MACHINE OPERATOR Plan of Treatment Upcoming Encounters Date Type Department Care Team (Late st Contact Info) Description 09/21/2024 3:00 PM CDT Office Visit [facility] [address] [place] [id number] Kiera Salinas, [facility] [address] [place] [address] Health Maintenance Due Date Last Done Comments Hepatitis C Virus (HCV) Screening 1965 Hepatitis B Immunization (1 of 3 - 19+ 3-dose series) 12/02/1983 HPV/Cotest 1994 Cologuard 2014 Immunochemical Fecal Occult Blood 2014 SARS-COV-2 Immunization ( season) 2024 10/12/2020 Mammogram 09/04/2024 09/04/2023, 02/05, 01/20/2021, Additional history exists Colonoscopy 04/03/2025 04/03/2024, 05/19/2021 Colorectal Cancer Screening 04/03/2025 Td Immunization Every 10 Years (Adults With 1 Tdap) 05/13/2029 05/13/2019 Respiratory Syncytial Virus (RSV) Immunization (Adult) (1 - 1-dose 75+ series) 12/02/2039 04/03/2024, 05/19/2021 DTaP/Tdap/Td Immunization Discontinued 05/13/2019 Zoster Immunization Completed 01/09/2021, 10/28/2020, 04/23/2017 Pneumococcal Immunization (50+ years) Completed 05/01/2023, 04/24/2017, 01/30/2015 Pneumococcal Immunization Combined Discontinued 05/01/2023, 04/24/2017, 01/30/2015 Influenza Immunization Completed , 05/01/2023, 04/27/2021, Additional history exists Cervical Cancer Screening (CCS) Discontinued Meningococcal Immunization (ACWY) Aged Out No longer eligible based on patient's age to complete this topic Pap Smear Discontinued Rotavirus Immunization Aged Out No lo nger eligible based on patient's age to complete this topic Goals Goal Patient Goal Type Associated Problems Recent Progress Patient-Stated? Author I want to work through my grief for my . Behavioral Health Improving(04/ 09/2022 11:11 AM CDT) Yes Varble, Tamika A, HEAVY DUTY PRESS OPERATOR Note: Goal/Objective: Improve coping with grief related issues. Anticipated Time Frame for Goal Completion: 5 months Goal Reviewed with: patient Readiness to change: Ready to change Department associated with goal: [facility] Steps to achieve [...] Procedure Name Priority Date/Time Associated Diagnosis Comments JOHNNY SCREENING BILATERAL DIGITAL W CAD W VEENA Routine 09/04/2023 1:05 PM CRACKER AND COOKIE MACHINE OPERATOR Visit for screening mammogram from Last 3 Months or Most Recently Relevant to Health Maintenance Results * JOHNNY SCREENING BILATERAL DIGITAL W CAD W VEENA (09/04/2023 1:05 PM CRACKER AND COOKIE MACHINE OPERATOR) Anatomical Region Laterality Modality breast Bilateral Mammography 09/04/2023 12:4 9 PM CRACKER AND COOKIE MACHINE OPERATOR Narrative 09/04/2023 3:51 PM CRACKER AND COOKIE MACHINE OPERATOR - JOHNNY SCREENING BILATERAL DIGITAL W CAD [...] to exams dated: 01/20/2021, 02/21/2022, and 09/03/2018 [facility]. BREAST TISSUE:There are scattered fibroglandular densities in [...] exam. Electronically signed by: Farhan bradshaw/penrad:09/04/2023 15:43:11 Psychometrician(s): RT Sera(R)(M), [facility] letter sent: Normal Exam Reading location: KAT BI-RADS: 1 Negative Procedure Note Farhan Morrissey MD - 09/04/2023 - JOHNNY SCREENING BILATERAL DIGITAL W CAD W VEENA BILATERAL DIGITAL SCREENING MAMMOGRAM 3D/2D WITH CAD WITH MEDIOLATERAL OBLIQUE CRANIOCAUDAL: 09/04/2023 The study was acquired using digital technology and interpreted from soft copy. Current study was also evaluated with BuzzTableD version 7.2. 2D digital mammographic views, as well as 3D digital tomosynthesis were performed in the CC and MLO projections. CLINICAL: Routine screening. Patient has no complaints. No personal history of cancer. No family history of breast cancer. COMPARISONS: Comparison is made to exams dated: 01/20/2021, 02/21/2022, and 09/03/2018 [facility]. BREAST TISSUE:There are scattered fibroglandular densities in [...] next screening exam. Electronically signed by: Farhan bradshaw/rajeshrad:09/04/2023 15:43:11 Psychometrician(s): RT Sera(R)(M), [facility] letter sent: Normal Exam Reading location: KAT BI-RADS: 1 Negative Kiera Salinas [facility] IMG MAMMO ORDERAB LES Final Result from Last 3 Months or Most Recently Relevant to Health Maintenance Insurance MEDICAID [facility] PL[facility] Advance Directives * Full Code (Latest Code Status on File) Date Activated Date Inactivated Comments 01/10/2022 3:36 PM 01/10/2022 9:09 PM CPR-Full Treat ment: FULL ARREST: Attempt Resuscitation/CPR wit intubation and mechanical ventilation. PRE-ARREST: Use entire range of life support measures to stabilize the patient. Care Teams Health Researcher Relationship Specialty Start Date End Date Kiera Salinas PAC [address] [place] [address] PCP - General Physician Civil Engineering Director 08/23/21 Susanna Ba APRN, RAILROAD TRACK INSPECTOR [address] [place] [address] Nurse Practitioner Advanced Practice Nurse 12/24/22
--- OUTSIDE RECORDS SUMMARY | 2024-08-31 16:26 | XMS_ITS | Encounter Summary ---
Author Organization [facility] Address [address] [facility] [place] [address] Phone Care Team Providers Care Distance Learning Technician Name Role Phone Kiera Salinas PAC Primary Care Pro vider Susanna Ba APRN, BUTCHER SCULLION Unavailable Reason for Visit * Reason Comments Medication Refill Encounter Details Date Type Department Care Team (Late st Contact Info) Description 08/06/2022 Refill [facility] Care - [place] [address] [place] [address] Kiera Salinas, PAC [address] [address] Medication Refill Social History Tobacco [...] Coronavirus/COVID-19? No / Unsure 08/08/2022 11:43 AM FOREST ECONOMIST documented as of this encounter Functional Status * Question Answer Date of Assessment Author Little interest or pleasure in doing things Not at all 08/08/2022 11:00 AM Lyubov Phelps RMA Feeling down, depressed, or hopeless Nearly every day 08/08/2022 11:00 AM FOREST ECONOMIST Rachel Randall RMA * Over the past [...] [facility] - [place] [address] [place] [address] Kiera Salinas, [facility] [address] [place] [address] documented as of this encounter Visit Diagnoses [...] Respiratory Rule-Out 05/21/2024 05/21/2024 024 12:52 PM FOREST ECONOMIST COVID - 19 05/21/2024 05/21/2024 05/21/2024 12:5 1 PM FOREST ECONOMIST COVID - 19 05/28/2024 05/28/2024 05/28/2024 3:25 PM FOREST ECONOMIST Assessment Noted Time PHQ-9 Depression Total Score: 3 08/23/19 22 8:00 AM FOREST ECONOMIST documented as of this encounter Care Teams Distance Learning Technician Relationship Specialty Start Date End Date Kiera Salinas, RL [address] [place] [address] PCP - General Physician Staying Machine Operator 08/23/21 Susanna Ba APRN, BUTCHER SCULLION [address] [place] [address] Nurse Practitioner Advanced Practice Nurse 12/24/22 documented as of this encounter
--- OUTSIDE RECORDS SUMMARY | 2024-08-31 16:26 | XMS_ITS | Encounter Summary ---
Author Organization [facility] Address [address] [facility] [place] [address] Phone Care Team Providers Care Cash Application Clerk Name Role Phone Kiera Salinas PAC Primary Care Pro vider Susanna Ba APRN, INDIRECT SALES EXEC Unavailable Reason for Visit * Reason Comments Medication Refill Encounter Details Date Type Department Care Team (Late st Contact Info) Description 10/01/2022 Refill [facility] - [place] [address] [place] [address] Ciara Moe, PAC [address] [place] [address] Medication Refill Social History Tobacco [...] Description 09/21/2024 3:00 PM CDT Office Visit [facility] - Internal Medicine - [place] [address] [place] [address] Kiera Salinas, [facility] [address] [place] [address] documented as of this encounter Goals Goal [...] change Department associated with goal: [facility] Steps to achieve goal: [...] Respiratory Rule-Out 05/21/2024 05/21/2024 024 12:52 PM CARE TRANSITION MANAGER COVID - 19 05/21/2024 05/21/2024 05/21/2024 12:5 1 PM CARE TRANSITION MANAGER COVID - 19 05/28/2024 05/28/2024 05/28/2024 3:25 PM CARE TRANSITION MANAGER Assessment Noted Time PHQ-9 Depression Total Score: 15 023 11:00 AM CARE TRANSITION MANAGER documented as of this encounter Care Teams Cash Application Clerk Relationship Specialty Start Date End Date Kiera Salinas, PAC [address] [place] [address] PCP - General Physician Housekeeping Director 08/23/21 Susanna Ba APRN, INDIRECT SALES EXEC [address] [place] [address] Nurse Practitioner Advanced Practice Nurse 12/24/22 documented as of this encounter
--- OUTSIDE RECORDS SUMMARY | 2024-08-31 16:26 | XMS_ITS | Clinical Summary ---
Author Organization [facility] [address] [facility] Address [address] [facility] [address] [place] [address] Care Team Providers Care Presentation Team Member Name Role Phone Kiera Salinas Primary Care Prov ider Adrianne Lyles Unavailable [phone] Allergies No known active allergies Medications albuterol [...] needed for pain 30 tablet 4 Active Additional Information Patient not taking.Reported on 08/12/2024 ALPRAZolam (XANAX) 0.25 mg tablet Take 1 tablet (0.25 mg total) by mouth nightly as needed 4 Active phentermine (ADIPEX-P) 37.5 mg tablet Take 1 tablet (37.5 mg total) by mouth daily before breakfast 0 Active celecoxib (CeleBREX) 200 mg capsule Take 1 capsule by mouth once daily 30 capsule 4 Active Additional Information Patient not taking.Reported on 08/12/2024 Active Problems Problem Noted Date Diagnosed Date S/P reverse total shoulder arthroplasty, right 0 02/21/2024 Rotator cuff tear arthropathy of right shoulder 02/17/2024 Anxiety 01/15/2024 Asthma 01/15/2024 Gastroesophageal reflux disease 01/15/2024 High blood pressure 01/15/2024 Allergic rhinitis 10/27/2020 Hyperlipidemia 10/27/2020 Insomnia 10/27/2020 OAB (overactive bladder) 10/27/2020 Obesity, Class III, BMI 40-49.9 (morbid obesity) 10/27/2020 Overview (01/15/2024): Nitin Whittington from a weight loss clinic Encounters Date Type Department Care Team Description 08/27/2024 1:45 PM SHIPPING AND RECEIVING CLERK Therapy [facility] [place] [address] Georgi Farnks, PT S/P reverse total shoulder arthroplasty, right (Primary Dx); Deltoid tendinitis of right shoulder 08/24/2024 8:30 AM SHIPPING AND RECEIVING CLERK Therapy [facility] Physical [facility] [place] [address] Georgi Franks, PT S/P reverse total shoulder arthroplasty, right; Deltoid tendinitis of right shoulder 08/24/2024 Plan of Care Documentation [facility] Physical [facility] [place] [address] 08/12/2024 10:30 AM SHIPPING AND RECEIVING CLERK Office Visit [facility] Orthopedics and Sports Medicine [address] [place] [address] [address], [place] [address] Adrianne Lyles PA S/P reverse total shoulder arthroplasty, right (Primary Dx); Deltoid tendinitis of right shoulder 08/12/2024 8:52 AM SHIPPING AND RECEIVING CLERK - 08/12/2024 11:59 PM SHIPPING AND RECEIVING CLERK Hospital Encounter [facility] and Sports Medicine [address] [place] [address] [address] [place] [address] Discharge Disposition: Discharge to home or self care 08/05/2024 Telephone [facility] and Sports Medicine [address] [place] [address] [address] [place] [address] Mau Moralez MD from Last 3 Months [...] on file Legal Sex Female 2:51 AM SHIPPING AND RECEIVING CLERK Gender Identity Not on file Sexual Orientation Not on file Obstetrics History Last Filed Vital Signs Vital Sign Reading Time Taken Comments Blood Pressure 143/82 08/12/2024 11:01 AM SHIPPING AND RECEIVING CLERK Pulse 76 08/12/2024 11:01 AM SHIPPING AND RECEIVING CLERK Temperature 36.2 C (97.2 F) 03/03/2024 1:58 PM CDT Respiratory Rate 16 04/28/2024 3:21 PM CDT Oxygen Saturation 98% 03/03/2024 1:58 PM CDT Inhaled Oxygen Concentration - - Weight 84.8 kg (187 lb) 08/12/2024 11:01 AM SHIPPING AND RECEIVING CLERK Height 160 cm (5' 3 ) 08/12/2024 11:01 AM SHIPPING AND RECEIVING CLERK Body Mass Index 33.13 08/12/2024 11:01 AM SHIPPING AND RECEIVING CLERK Plan of Treatment Health Maintenance Due Date Last Done Comments Colon Cancer Screening-Colonoscopy 1965 Depression Screening 1965 Hepatitis C Screening 1965 Hepatitis B Screening 1982 Regular Well Visit/Exam 18-64 1982 Covid-19 Vaccine (2023-2 5 season) 2024 10/12/2020 Influenza Vaccine (#1) 2024 , 04/27/2021, 03/31/2020, Additional history exists Breast Cancer Screening-Mammogram 09/04/2024 09/04/2023, 09/04/2023, 02/21/2022, Additional history exists DTaP/Tdap/Td Vaccine (2 - Td or Tdap) 05/13/2029 05/13/2019 Zoster Vaccine Completed 01/09/2021, 10/07, 04/23/2017 Pneumococcal vaccine <65 Completed 023, 04/24/2017, 01/30/2015 Medical Devices Implanted Type Area Room Attendants Device Identifier Shelf Expiration Date Model / Serial / Lot [employer] Component Glenoid Modular Post Reverse 20mm Ar-9582-20 - [id number] Implanted:Qty: 1 on 03/03/2024 by Mau Moralez MD at [facility] Right: Shoulder [employer] [id number] 09/04/2028 AR-9582-2 0 / / [id number] [employer] Baseplate 24mm 10 Deg Full Augment Oblique Xu-[id number] - [id number] Implanted:Qty: 1 on 03/03/2024 by Mau Moralez MD at [facility] Right: Shoulder [employer] [id number] 11/05/2027 AR-9580-2 410 / / [id number] [employer] 36mm 24 Baseplate Taper Sphere Glenoid [id number]-[id number] - [id number] Implanted:Qty: 1 on 03/03/2024 by Mau Moralez MD at [facility] Right: Shoulder [employer] [id number] 11/04/2028 AR-9564-2 436 / / [id number] [employer] [facility] Shoulder 9 Stem Humeral Ar-9501-09s - [id number] Implanted:Qty: 1 on 03/03/2024 by Mau Moralez MD at [facility] Right: Shoulder [employer] [id number] 11/04/2024 AR-9501-0 9S / / [id number] [employer] Implant Suture Cup Humeral Reverse Right Univers [facility] +2x33mm Titanium [id number] - [id number] Implanted:Qty: 1 on 03/03/2024 by Mau Moralez MD at [facility] Right: Shoulder [employer] [id number] 05/07/2028 AR-9502F- 33RCPC / / [id number] [employer] Univers Revers 5.5mm 40mm Modular Lock Glenoid Peripheral Screw Ar-9563-40 - [id number] Implanted:Qty: 1 on 03/03/2024 by Mau Moralez MD at [facility] Right: Shoulder [employer] [id number] 12/06/2027 AR-9563-4 0 / / [id number] [employer] Screw Glenoid Locking Reverse Univers Revers 5.5x20mm Titanium Ar-9563-20 - [id number] Implanted:Qty: 1 on 03/03/2024 by Mau Moralez MD at [facility] Right: Shoulder [employer] [id number] 07/07/2028 AR-9563-2 0 / / [id number] [employer] Insert Humeral Combo Reverse Poly Univers Revers +3x33mm Py-3963-2782-3 - [id number] Implanted:Qty: 1 on 03/03/2024 by Mau Moralez MD at [facility] Right: Shoulder [employer] [id number] 03/07/2028 AR-9503-3 336-3 / / [id number] [employer] Implant Pin Kit Glenoid Ar-9607s - Sna - [id number] Implanted:Qty: 1 on 03/03/2024 by Mau Moralez MD at [facility] Right: Shoulder [employer] 10/05/2028 AR-9607S / NA / [id number] Procedures Procedure Name Priority Date/Time Associated Diagnosis Comments XR SHOULDER RIGHT 2 OR MORE VIEWS Schedule Routine, Read Routine (OP Routine) 08/12/2024 10:47 AM SHIPPING AND RECEIVING CLERK S/P reverse total shoulder arthroplasty, right from Last 3 Months Results * XR Shoulder Right 2 or More Views (08/12/2024 10:47 AM SHIPPING AND RECEIVING CLERK) Anatomical Region Laterality Modality Upper Extremities, Shoulder Right Digi yamil Radiography Narrative 08/23/2024 4:57 PM SHIPPING AND RECEIVING CLERK X-rays reviewed and interpreted by myself and in my opinion, demonstrate no acute fractures, subluxations or destructive lesions. Status post reverse total shoulder changes with Arthrex implants in acceptable position. Adrianne LEAVITT IMG XR PROCEDURES Final Result from Last 3 Months Insurance [facility] Advance Directives For more information, please contact: [phone] * Full Code (Latest Code Status on File) Date Activated Date Inactivated Comments 03/03/2024 11:17 AM 03/03/2024 6:06 PM Care Teams Presentation Team Member Relationship Specialty Start Date End Date Kiera Salinas PA PCP - General Neurosurgery 11/08/23 Adrianne Lyles PA [address] [place] [address] [address] [place] [address] Physician Casing Puller Orthopedic Surgery 03/03/24
--- OUTSIDE RECORDS SUMMARY | 2024-08-31 16:26 | XMS_ITS | Encounter Summary ---
Author Organization [facility] Address [address] [place] [address] Phone Care Team Providers Care Pr Specialist Name Role Phone Kiera Salinas PAC Primary Care Pro vider Susanna Ba APRN, LIFE CLAIMS EXAMINER Unavailable Reason for Visit * Reason Comments Medication Refill Encounter Details Date Type Department Care Team (Late st Contact Info) Description 01/27/2023 Refill [facility] - Primary Care - [place] [address] [place] [address] Kiera Salinas, PAC [address] [facility] [place] [address] Medication Refill Social History Tobacco [...] 01/14/23 Office Visit Kiera Salinas, RL [facility] [place] 10/15/22 Office Visit Kiera Salinas, RL [facility] [place] 09/14/22 [facility] [place] [facility] Office Visit [facility]iera Salinas [facility] [place] Showing recent visits within past 182 days [...] Office Visit Kiera Salinas, PAC [facility] [place] 10/15/22 Office Visit Kiera Salinas, PAC [facility] [place] 09/14/22 Office Visit Kiera Salinas, PAC [facility] [place] 08/08/22 Office Visit Kiera Salinas, PAC [facility] [place] Showing recent visits within past 182 days [...] Office Visit Kiera Salinas, PAC [facility] [place] 10/15/22 Office Visit Kiera Salinas, PAC [facility] [place] 09/14/22 Office Visit Kiera Salinas, PAC [facility] [place] 08/08/22 Office Visit Kiera Salinas, PAC [facility] [place] 07/18/22 Office Visit Kiera Salinas, PAC [facility] [place] 05/24/22 Office Visit Kiera Salinas, PAC [facility] [place] Showing recent visits within past 365 days and meeting all other requirements Future Appointments No visits were found meeting these conditions. Showing future appointments within next 90 days and meeting all other requirements documented in this encounter Plan of Treatment Upcoming Encounters Date Type Department Care Team (Late st Contact Info) Description 09/21/2024 3:00 PM CDT Office Visit [facility] - Internal Medicine - [place] [address] [place] [address] Kiera Salinas, PAC [address] [place] [address] documented as of this encounter Goals Goal Patient Goal Type Associated Problems Recent Progress Patient-Stated? Author I want to work through my grief for my . Behavioral Health Improving(09/2022 11:11 AM CDT) Yes Tamika Madison, FIBER ANALYST Note: Goal/Objective: Improve coping with grief related [...] Respiratory Rule-Out 05/21/2024 05/21/2024 024 12:52 PM WAREHOUSE ORDER PULLER COVID - 19 05/21/2024 05/21/2024 05/21/2024 12:5 1 PM WAREHOUSE ORDER PULLER COVID - 19 05/28/2024 05/28/2024 05/28/2024 3:25 PM WAREHOUSE ORDER PULLER Assessment Noted Time PHQ-9 Depression Total Score: 15 023 11:00 AM WAREHOUSE ORDER PULLER documented as of this encounter Care Teams Pr Specialist Relationship Specialty Start Date End Date Kiera Salinas, [facility] [address] [place] [address] PCP - General Physician Repairer General 08/23/21 Susanna Ba APRN, LIFE CLAIMS EXAMINER [address] [place] [address] Nurse Practitioner Advanced Practice Nurse 12/24/22 documented as of this encounter
--- OUTSIDE RECORDS SUMMARY | 2024-08-31 16:26 | XMS_ITS | Encounter Summary ---
Author Organization [facility] Address [address] [place] [address] Phone Care Team Providers Care Fishing Gear Mechanic Name Role Phone Kiera Salinas [facility] Primary Care Pro vider Susanna Ba WOOD PATTERNMAKER, SPANISH MEDICAL INTERPRETER Unavailable Reason for Visit * Reason Comments Medication Refill Encounter Details Date Type Department Care Team (Late st Contact Info) Description 08/23/2021 Refill [facility] - Primary Care - [place] [address] [place] [address] Francie Cherry MD [address] [place] [address] Medication Refill Social History Tobacco [...] COVID-19? No / Unsure 08/23/2021 8:29 AM RESEARCH LEADER documented as of this encounter Plan of Treatment Upcoming Encounters Date Type Department Care Team (Late st Contact Info) Description 09/21/2024 3:00 PM CDT Office Visit [facility] - Internal Medicine - [place] [address] [place] [address] Kiera Salinas, PAC [address] [place] [address] documented as of this encounter Visit Diagnoses Diagnosis Essential hypertension Unspecified essential hypertension documented in this encounter Additional Health Concerns Infection Onset Date Last Indicated Resolved Time COVID - 19 08/14/2021 08/14/2021 09/03/2021 12:1 6 AM RESEARCH LEADER COVID - 19 09/26/2021 09/27/2021 10/17/2021 12:1 6 AM CDT COVID - 19 12/20/2021 12/20/2021 12/30/2021 12:1 6 AM CDT COVID - 19 05/24/2022 05/29/2022 06/08/2022 12:1 8 AM RESEARCH LEADER COVID - 19 07/12/2022 07/12/2022 07/22/2022 12:1 7 AM RESEARCH LEADER Respiratory Rule Out - RPA 01/14/2023 01/14/2023 0 01/14/2023 1:43 PM CDT COVID - 19 Confirmed 01/14/2023 01/14/2023 023 12:16 AM CDT Respiratory Rule-Out 10/15/2023 10/15/2023 024 1:49 PM CDT COVID - 19 10/15/2023 10/15/2023 10/15/2023 1:48 PM CDT Respiratory Rule-Out 05/21/2024 05/21/2024 024 12:52 PM RESEARCH LEADER COVID - 19 05/21/2024 05/21/2024 05/21/2024 12:5 1 PM RESEARCH LEADER COVID - 05/28/2024 05/28/2024 05/28/2024 3:25 PM RESEARCH LEADER Assessment Noted Time PHQ-9 Depression Total Score: 3 08/23/19 22 8:00 AM RESEARCH LEADER documented as of this encounter Care Teams Fishing Gear Mechanic Relationship Specialty Start Date End Date Kiera Salinas, [facility] [address] [place] [address] PCP - General Physician Construction Administrator 08/23/21 Susanna Ba APRN, SPANISH MEDICAL INTERPRETER [address] [place] [address] Nurse Practitioner Advanced Practice Nurse 12/24/22 documented as of this encounter
--- OUTSIDE RECORDS SUMMARY | 2024-08-31 16:26 | XMS_ITS | Encounter Summary ---
Author Organization [facility] Address [address] [place] [address] Phone Care Team Providers Care Reconditioning Associate Name Role Phone Francie Cherry MD Primary Care Provider [phone] Kiera Salinas PAC Primary Care Pro vider Susanna Ba APRN, FISHING LURE ASSEMBLER Unavailable Reason for Visit * Reason Comments Medication Refill Encounter Details Date Type Department Care Team (Late st Contact Info) Description 05/31/2021 Refill [facility] - Primary Care - [place] [address] [place] [address] Francie Cherry MD [address] [place] [address] Medication Refill Social History Tobacco [...] COVID-19? No / Unsure 05/26/2021 11:27 AM PHOTOGRAPHER'S MODEL documented as of this encounter Miscellaneous Notes * Telephone Encounter - Danette Hays RN - 06/02/2021 9:05 AM CST fenofibrate (TRICOR) 145 MG Tablet 90 Tablet 0 05/16/2021 Refill too soon OGRAPHER'S MODEL documented in this encounter Plan of Treatment Upcoming Encounters Date Type Department Care Team (Late st Contact Info) Description 09/21/2024 3:00 PM CDT Office Visit [facility] - Internal Medicine - [place] [address] [place] [address] Kiera Salinas, [facility] [address] [place] [address] documented as of this encounter Visit Diagnoses Diagnosis Hyperlipidemia, unspecified hyperlipidemia type documented in this encounter Additional Health Concerns Infection Onset Date Last Indicated Resolved Time COVID - 19 04/24/2021 05/26/2021 06/15/2021 12:1 6 AM PHOTOGRAPHER'S MODEL COVID - 19 08/14/2021 08/14/2021 09/03/2021 12:1 6 AM PHOTOGRAPHER'S MODEL COVID - 19 09/26/2021 09/27/2021 10/17/2021 12:1 6 AM CDT COVID - 19 12/20/2021 12/20/2021 12/30/2021 12:1 6 AM CDT COVID - 19 05/24/2022 05/29/2022 06/08/2022 12:1 8 AM PHOTOGRAPHER'S MODEL COVID - 19 07/12/2022 07/12/2022 07/22/2022 12:1 7 AM PHOTOGRAPHER'S MODEL Respiratory Rule Out - RPA 01/14/2023 01/14/2023 0 01/14/2023 1:43 PM CDT COVID - 19 Confirmed 01/14/2023 01/14/2023 023 12:16 AM CDT Respiratory Rule-Out 10/15/2023 10/15/2023 024 1:49 PM CDT COVID - 19 10/15/2023 10/15/2023 10/15/2023 1:48 PM CDT Respiratory Rule-Out 05/21/2024 05/21/2024 024 12:52 PM PHOTOGRAPHER'S MODEL COVID - 19 05/21/2024 05/21/2024 05/21/2024 12:5 1 PM PHOTOGRAPHER'S MODEL COVID - 19 05/28/2024 05/28/2024 05/28/2024 3:25 PM PHOTOGRAPHER'S MODEL documented as of this encounter Care Teams Reconditioning Associate Relationship Specialty Start Date End Date Francie Cherry MD [address] [place] [address] PCP - General Family Medicine 10/27/20 08/22/21 Kiera Salinas, RL [address] [place] [address] PCP - General Physician Oracle Erp Developer 08/23/21 Susanna Ba APRN, FISHING LURE ASSEMBLER [address] [place] [address] Nurse Practitioner Advanced Practice Nurse 12/24/22 documented as of this encounter
--- OUTSIDE RECORDS SUMMARY | 2024-08-31 16:26 | XMS_ITS | Encounter Summary ---
Author Organization [facility] Address [address] [place] [address] Phone Care Team Providers Care Propeller Driven Airplane Mechanic Name Role Phone Kiera Salinas PAC Primary Care Pro vider Susanna Ba APRN, GLASS CYLINDER FLANGER Unavailable Reason for Visit * Reason Comments Medication Refill Encounter Details Date Type Department Care Team (Late st Contact Info) Description 10/13/2022 Refill [facility] - Internal Medicine - [place] [address] [place] [address] Kiera Salinas, PAC [address] [facility] [place] [address] Medication Refill Social History Tobacco [...] Description 09/21/2024 3:00 PM CDT Office Visit [facility] - Internal Medicine - [place] [address] [place] [address] Kiera Salinas, [facility] [address] [place] [address] documented as of this encounter Goals Goal Patient Goal Type Associated Problems Recent Progress Patient-Stated? Author I want to work through my grief for my . Behavioral Health Improving(09/2022 11:11 AM CDT) Yes Tamika Madison, MEDICAL TRANSCRIPTION RADIOLOGY Note: Goal/Objective: Improve coping with grief related issues. Anticipated Time Frame for Goal Completion: 5 months Goal Reviewed with: patient Readiness to change: Ready to change Department associated with goal: [facility] Steps to achieve [...] Respiratory Rule-Out 05/21/2024 05/21/2024 024 12:52 PM ACCESS DEVELOPER COVID - 05/21/2024 05/21/2024 05/21/2024 12:5 1 PM ACCESS DEVELOPER COVID - 05/28/2024 05/28/2024 05/28/2024 3:25 PM ACCESS DEVELOPER Assessment Noted Time PHQ-9 Depression Total Score: 15 023 11:00 AM ACCESS DEVELOPER documented as of this encounter Care Teams Propeller Driven Airplane Mechanic Relationship Specialty Start Date End Date Kiera Salinas, [facility] [address] [place] [address] PCP - General Physician Aquacultural Worker Supervisor 08/23/21 Susanna Ba APRN, GLASS CYLINDER FLANGER [address] [place] [address] Nurse Practitioner Advanced Practice Nurse 12/24/22 documented as of this encounter
--- OUTSIDE RECORDS SUMMARY | 2024-08-31 16:26 | XMS_ITS | Encounter Summary ---
Author Organization [facility] Address [address] [place] [facility] [place] [address] Phone Care Team Providers Care Certified Diabetes Educator Name Role Phone Keira Salinas [facility] Primary Care Pro vider Susanna Ba APRN, PRODUCTION CONTROL ANALYST Unavailable Reason for Visit * Reason Comments Medication Refill Encounter Details Date Type Department Care Team (Late st Contact Info) Description 01/16/2023 [facility]ill [facility] - Gastroenterology - [place] [address] [place] [id number] Suasnna Ba APRN, PRODUCTION CONTROL ANALYST [address] [place], [place] [id number] Medication Refill Social History Tobacco Use Types [...] PM CDT Medication refilled and signed per [facility] chronic medication standing order for pediatric and adult patients. documented in this encounter Plan of Treatment Upcoming Encounters Date Type Department Care Team (Late st Contact Info) Description 09/21/2024 3:00 PM CDT Office Visit [facility] - Internal Medicine - [place] [address] [place] [address] Kiera Salinas, [facility] [address] [place] [address] documented as of this encounter Goals Goal Patient Goal Type Associated Problems Recent Progress Patient-Stated? Author I want to work through my grief for my . Behavioral Health Improving(09/2022 11:11 AM CDT) Yes Tamika Madison, CUSTOMER SALES SERVICE MANAGER Note: Goal/Objective: Improve coping with grief related issues. Anticipated Time Frame for Goal Completion: 5 months Goal Reviewed with: patient Readiness to change: Ready to change Department associated with goal: [facility] Steps to achieve [...] Respiratory Rule-Out 05/21/2024 05/21/2024 024 12:52 PM CUSTOMER SALES CONSULTANT COVID - 19 05/21/2024 05/21/2024 05/21/2024 12:5 1 PM CUSTOMER SALES CONSULTANT COVID - 19 05/28/2024 05/28/2024 05/28/2024 3:25 PM CUSTOMER SALES CONSULTANT Assessment Noted Time PHQ-9 Depression Total Score: 15 023 11:00 AM CUSTOMER SALES CONSULTANT documented as of this encounter Care Teams Certified Diabetes Educator Relationship Specialty Start Date End Date Kiera Salinas, [facility] [address] [place] [address] PCP - General Physician [employer] 08/23/21 Susanna Ba APRN, PRODUCTION CONTROL ANALYST [address] [place] [address] Nurse Practitioner Advanced Practice Nurse 12/24/22 documented as of this encounter
--- OUTSIDE RECORDS SUMMARY | 2024-08-31 16:26 | XMS_ITS | Encounter Summary ---
Author Organization [facility] Address [address] [place] [address] Phone Care Team Providers Care Technical Services Consultant Name Role Phone Kiera Salinas PAC Primary Care Pro vider Susanna Ba APRN, FAT PURIFICATION WORKER Unavailable Reason for Visit * Reason Comments Medication Refill Encounter Details Date Type Department Care Team (Late st Contact Info) Description 10/17/2022 Refill [facility] - Internal Medicine - [place] [address] [place] [address] Kiera Salinas, PAC [address] [facility] [place] [address] Medication Refill Social History Tobacco [...] Office Visit Kiera Salinas PAC [facility] [place] 09/14/22 Office Visit Kiera Salinas PAC [facility] [place] 08/08/22 Office Visit Kiera Salinas PAC [facility] [place] 07/18/22 Office Visit Kiera Salinas PAC [facility] [place] 05/24/22 Office Visit Kiera Salinas PAC [facility] [place] Showing recent visits within past 182 days and meeting all other requirements Future Appointments Date Type Provider Dept 01/14/23 Appointment Kiera Salinas PAC [facility] [place] Showing future appointments within next 90 days and meeting all other requirements Passed - Has an encounter in the past 6 months with a depression, anxiety, adjustment disorder, OCD, or PTSD visit diagnosis documented in this encounter Plan of Treatment Upcoming Encounters Date Type Department Care Team (Late st Contact Info) Description 09/21/2024 3:00 PM CDT Office Visit [facility] - Internal Medicine - [place] [address] [place] [address] Kiera Salinas, PAC [address] [place] [address] documented as of this encounter Goals Goal Patient Goal Type Associated Problems Recent Progress Patient-Stated? Author I want to work through my grief for my . Behavioral Health Improving(09/2022 11:11 AM CDT) Yes Tamika Madison, TAX AGENT Note: Goal/Objective: Improve coping with grief related issues. Anticipated Time Frame for Goal Completion: 5 months Goal Reviewed with: patient Readiness to change: Ready to change Department associated with goal: [facility] Steps to achieve [...] Respiratory Rule-Out 05/21/2024 05/21/2024 024 12:52 PM PUMPER GAGER COVID - 19 05/21/2024 05/21/2024 05/21/2024 12:5 1 PM PUMPER GAGER COVID - 19 05/28/2024 05/28/2024 05/28/2024 3:25 PM PUMPER GAGER Assessment Noted Time PHQ-9 Depression Total Score: 15 023 11:00 AM PUMPER GAGER documented as of this encounter Care Teams Technical Services Consultant Relationship Specialty Start Date End Date Kiera Salinas, [facility] [address] [place] [address] PCP - General Physician Call Center Supervisor 08/23/21 Susanna Ba APRN, FAT PURIFICATION WORKER [address] [place] [address] Nurse Practitioner Advanced Practice Nurse 12/24/22 documented as of this encounter
--- OUTSIDE RECORDS SUMMARY | 2024-08-31 16:26 | XMS_ITS | Referral Summary ---
Author Organization [facility] [address] [facility] lto Address [address] [place] [address] Care Team Providers Care Fur Repair Inspector Name Role Phone Kiera Salinas Primary Care Prov ider Adrianne Lyles Unavailable [phone] Encounters Date Type Department Care Team Description 08/27/2024 1:45 PM HARBOR BOAT PILOT Therapy [facility] [place] [address] Georgi Franks, PT S/P reverse total shoulder arthroplasty, right (Primary Dx); Deltoid tendinitis of right shoulder 08/24/2024 Plan of Care Documentation [facility] [place] [address] 08/24/2024 8:30 AM HARBOR BOAT PILOT Therapy [facility] Physical [place] [address] Georgi Franks, PT S/P reverse total shoulder arthroplasty, right; Deltoid tendinitis of right shoulder 08/12/2024 8:52 AM HARBOR BOAT PILOT - 08/12/2024 11:59 PM HARBOR BOAT PILOT Hospital Encounter [facility] Orthopedics and Sports Medicine [address] [place] [address] Discharge Disposition: Discharge to home or self care 08/12/2024 10:30 AM HARBOR BOAT PILOT Office Visit [facility] Medical [facility] Sports Medicine [address] [place] [address] [address] [place] [address] Adrianne Lyles PA S/P reverse total shoulder arthroplasty, right (Primary Dx); Deltoid tendinitis of right shoulder 08/05/2024 Telephone [facility] Orthopedics and Sports Medicine [address] [place] [address] [address] [place] [address] Mau Moralez MD from Last [...] mg total) by mouth nightly as needed Active phentermine (ADIPEX-P) 37.5 mg tablet Take [...] BMI 40-49.9 (morbid obesity) 10/27/2020 Overview (01/15/2024): Getting Pk from a weight loss clinic Social History [...] on file Legal Sex Female 2:51 AM HARBOR BOAT PILOT Gender Identity Not on file Sexual Orientation Not on file Last Filed Vital Signs Vital Sign Reading Time Taken Comments Blood Pressure 143/82 08/12/2024 11:01 AM HARBOR BOAT PILOT Pulse 76 08/12/2024 11:01 AM HARBOR BOAT PILOT Temperature 36.2 C (97.2 F) 03/03/2024 1:58 PM CDT Respiratory Rate 16 04/28/2024 3:21 PM CDT Oxygen Saturation 98% 03/03/2024 1:58 PM CDT Inhaled Oxygen Concentration - - Weight 84.8 kg (187 lb) 08/12/2024 11:01 AM HARBOR BOAT PILOT Height 160 cm (5' 3 ) 08/12/2024 11:01 AM HARBOR BOAT PILOT Body Mass Index 33.13 08/12/2024 11:01 AM HARBOR BOAT PILOT Plan of Treatment Not on file Medical Devices Implanted Type Area Energy Systems Laboratory Director Device Identifier Shelf Expiration Date Model / Serial / Lot [employer] Component Glenoid Modular Post Reverse 20mm Ar-9582-20 - [id number] Implanted:Qty: 1 on 03/03/2024 by Mau Moralez MD at [facility] Right: Shoulder [employer] [id number] 09/04/2028 AR-9582-2 0 / / [id number] [employer] Baseplate 24mm 10 Deg Full Augment Oblique [id number] - [id number] Implanted:Qty: 1 on 03/03/2024 by Mau Moralez MD at [facility] Right: Shoulder [employer] [id number] 11/05/2027 AR-9580-2 410 / / [id number] [employer] 36mm 24 Baseplate Taper Sphere Glenoid [id number] - [id number] Implanted:Qty: 1 on 03/03/2024 by Mau Moralez MD at [facility] Right: Shoulder [employer] [id number] 11/04/2028 AR-9564-2 436 / / [id number] [employer] Univers Revers Univers [place] Shoulder 9 Stem Humeral Ar-9501-09s - [id number] Implanted:Qty: 1 on 03/03/2024 by Mau Moralez MD at [facility] Right: Shoulder [employer] [id number] 11/04/2024 AR-9501-0 9S / / [id number] [employer] Implant Suture Cup Humeral Reverse Right Univers Revers +2x33mm Titanium [id number] - [id number] Implanted:Qty: 1 on 03/03/2024 by Mau Moralez MD at [facility] Right: Shoulder [employer] [id number] 05/07/2028 AR-9502F- [id number] / / [id number] [employer] Univers Revers 5.5mm 40mm Modular Lock Glenoid Peripheral Screw Ar-9563-40 - [id number] Implanted:Qty: 1 on 03/03/2024 by Mau Moralez MD at [facility] Right: Shoulder [employer] [id number] 12/06/2027 AR-9563-4 0 / / [id number] [employer] Screw Glenoid Locking Reverse Univers Revers 5.5x20mm Titanium Ar-9563-20 - [id number] Implanted:Qty: 1 on 03/03/2024 by Mau Moralez MD at [facility] Right: Shoulder [employer] [id number] 07/07/2028 AR-9563-2 0 / / [id number] [employer] Insert Humeral Combo Reverse Poly Univers Revers +3x33mm [id number]-[id number] - [id number] Implanted:Qty: 1 on 03/03/2024 by Mau Moralez MD at [facility] Right: Shoulder [employer] [id number] 03/07/2028 AR-9503-3 [id number] .[id number] [employer] Implant Pin Kit Glenoid Ar-9607s - Sna - [id number] Implanted:Qty: 1 on 03/03/2024 by Mau Moralez MD at [facility] Right: Shoulder [employer] 10/05/2028 AR-9607S / NA / [id number] Procedures Procedure Name Priority Date/Time Associated Diagnosis Comments XR SHOULDER RIGHT 2 OR MORE VIEWS Schedule Routine, Read Routine (OP Routine) 08/12/2024 10:47 AM HARBOR BOAT PILOT S/P reverse total shoulder arthroplasty, right from Last 3 Months Results * XR Shoulder Right 2 or More Views (08/12/2024 10:47 AM HARBOR BOAT PILOT) Anatomical Region Laterality Modality Upper Extremities, Shoulder Right Digi yamil Radiography Narrative 08/23/2024 4:57 PM HARBOR BOAT PILOT X-rays reviewed and interpreted by myself and in my opinion, demonstrate no acute fractures, subluxations or destructive lesions. Status post reverse total shoulder changes with Arthrex implants in acceptable position. Adrianne LEAVITT IMG XR PROCEDURES Final Result from Last 3 Months Insurance [facility] Advance Directives For more information, please contact: [phone] * Full Code (Latest Code Status on File) Date Activated Date Inactivated Comments 03/03/2024 11:17 AM 03/03/2024 6:06 PM Care Teams Fur Repair Inspector Relationship Specialty Start Date End Date Kiera Salinas PA PCP - General Neurosurgery 11/08/23 Adrianne Lyles PA [address] [place] [address] DR [address] [place] [address] Physician Parimutuel Cashier Orthopedic Surgery 03/03/24
--- OUTSIDE RECORDS SUMMARY | 2024-08-31 16:26 | XMS_ITS | Encounter Summary ---
Author Organization [facility] Address [address] [facility] [place] [address] Phone Care Team Providers Care Manager Estate Name Role Phone Kiera Salinas PAC Primary Care Pro vider Susanna Ba APRN, CERTIFIED MORTICIAN Unavailable Reason for Visit * Reason Comments Medication Refill Encounter Details Date Type Department Care Team (Late st Contact Info) Description 06/21/2022 Refill [facility] - Primary Care - [place] [address] [place] [address] Kiera Salinas, PAC [address] [place] [address] Medication Refill Social History Tobacco [...] Coronavirus/COVID-19? No / Unsure 05/29/2022 12:57 PM LAMINATOR HAND documented as of this encounter Miscellaneous Notes [...] Dept 05/24/22 Office Visit Kiera Salinas, RL [facility] [place] Showing recent visits within past 182 days [...] Dept 05/24/22 Office Visit Kiera Salinas, RL [facility] Showing recent visits within past 182 days [...] Dept 05/24/22 Office Visit Kiera Salinas PAC [facility] [place] Showing recent visits within past 182 days [...] Dept 05/24/22 [facility] [place] 12/20/21 Office Visit Kiera Salinas PAC [facility] 08/23/21 Office Visit Kiera Salinas PAC [facility] [place] 08/14/21 Office Visit Francie Cherry MD [facility] Showing recent visits within past 365 days and meeting all other requirements Future Appointments No visits were found meeting these conditions. Showing future appointments within next 90 days and meeting all other requirements Passed - GFR on record in past 12 months GFR, EST. NONAFRICAN Date Value Ref Range Status 01/10/2022 >60 >=60 Final NATOR HAND documented in this encounter Plan of Treatment Upcoming Encounters Date Type Department Care Team (Late st Contact Info) Description 09/21/2024 3:00 PM CDT Office Visit [facility] - Internal [facility] - [place] [address] [place] [id number] Kiera Salinas, PAC [address] [place] [address] documented as of this encounter Visit Diagnoses Diagnosis Anxiety Anxiety state, unspecified Insomnia, unspecified type Essential hypertension Unspecified essential hypertension documented in this encounter Additional Health Concerns Infection Onset Date Last Indicated Resolved Time COVID - 19 07/12/2022 07/12/2022 07/22/2022 12:1 7 AM LAMINATOR HAND Respiratory Rule Out - RPA 01/14/2023 01/14/2023 0 01/14/2023 1:43 PM CDT COVID - 19 Confirmed 01/14/2023 01/14/2023 023 12:16 AM CDT Respiratory Rule-Out 10/15/2023 10/15/2023 024 1:49 PM CDT COVID - 19 10/15/2023 10/15/2023 10/15/2023 1:48 PM CDT Respiratory Rule-Out 05/21/2024 05/21/2024 024 12:52 PM LAMINATOR HAND COVID - 19 05/21/2024 05/21/2024 05/21/2024 12:5 1 PM LAMINATOR HAND COVID - 19 05/28/2024 05/28/2024 05/28/2024 3:25 PM LAMINATOR HAND Assessment Noted Time PHQ-9 Depression Total Score: 3 08/23/19 22 8:00 AM LAMINATOR HAND documented as of this encounter Care Teams Manager Estate Relationship Specialty Start Date End Date Kiera Salinas, PAC [address] [place] [address] PCP - General Physician Founding Partner 08/23/21 Susanna Ba APRN, CERTIFIED MORTICIAN [address] [place] [address] Nurse Practitioner Advanced Practice Nurse 12/24/22 documented as of this encounter
--- OUTSIDE RECORDS SUMMARY | 2024-08-31 16:26 | XMS_ITS | Encounter Summary ---
Author Organization [facility] Address [address] [place] [address] Phone Care Team Providers Care Applied Marine Physics Professor Name Role Phone Kiera Salinas [facility] Primary Care Pro vider Susanna Ba SPECIAL NEEDS TEACHER, [employer]UMBERS AND TOP HELPERS Unavailable Reason for Visit * Reason Comments Medication Refill Encounter Details Date Type Department Care Team (Late st Contact Info) Description 08/31/2021 Refill [facility] - Primary Care - [place] [address] [place] [address] Francie Cherry MD [address] [place] [address] Medication Refill Social History Tobacco [...] COVID-19? No / Unsure 08/23/2021 8:29 AM GLASS BEVELLER documented as of this encounter Miscellaneous Notes [...] Dept 08/23/21 Office Visit Kiera Salinas PAC [facility] 08/14/21 Office Visit Francie Cherry MD [facility] 06/19/21 Office Visit Francie Cherry MD [facility] 01/03/21 Office Visit Francie Cherry MD [facility] 10/27/20 Office Visit Francie Cherry MD [facility] 09/16/20 Telemedicine Rashida Bullock APRN, PLUMBERS AND TOP HELP[employer] [facility] Show[facility] recent visits within past 365 days [...] Provider Dept 08/23/21 Office Visit Kiera Salinas, [facility] 08/14/21 Office Visit Francie Cherry MD [facility] [address] 06/19/21 Office Visit Francie Cherry MD [facility] Showing recent visits within past 182 days [...] Provider Dept 08/23/21 Office Visit Kiera Salinas, [facility] 08/14/21 Office Visit Francie Cherry MD [facility] [address] 06/19/21 Office Visit Francie Cherry MD [facility] [place] Showing recent visits within past 182 days [...] Provider Dept 08/23/21 Office Visit Kiera Salinas, [facility] 08/14/21 Office Visit Francie [facility] [address] 06/19/21 Office Visit Francie Cherry [facility] [address] 01/03/21 Office Visit Francie Cherry [facility] [address] 10/27/20 Office Visit Francie Cherry MD [facility] [address] 09/16/20 Telemedicine Rashida Bullock APRN, TOMER [facility] Showing recent visits within past 365 days [...] Provider Dept 08/23/21 Office Visit Kiera Salinas, [facility] 08/14/21 Office Visit Francie Cherry [facility] [address] 06/19/21 Office Visit Francie Cherry MD [facility] [address] 01/03/21 Office Visit Francie Cherry MD [facility] [address] 10/27/20 Office Visit Francie Cherry MD [facility] [address] 09/16/20 Telemedicine Rashida Bullock APRN, [employer] [facility] Showing recent visits within past 365 [...] Status 06/09/2021 130.1 (H) <130 mg/dL Final S BEVELLER documented in this encounter Plan of Treatment Upcoming Encounters Date Type Department Care Team (Late st Contact Info) Description 09/21/2024 3:00 PM CDT Office Visit [facility] - [facility] Medicine - [place] [address] [place] [address] Kiera Salinas, [facility] [address] [place] [address] documented as of this encounter Visit Diagnoses Diagnosis Essential hypertension Unspecified essential hypertension Anxiety Anxiety state, unspecified Insomnia, unspecified type Gastroesophageal reflux disease, unspecified whether esophagitis present Hyperlipidemia, unspecified hyperlipidemia type documented in this encounter Additional Health Concerns Infection Onset Date Last Indicated Resolved Time COVID - 19 08/14/2021 08/14/2021 09/03/2021 12:1 6 AM GLASS BEVELLER COVID - 19 09/26/2021 09/27/2021 10/17/2021 12:1 6 AM CDT COVID - 19 12/20/2021 12/20/2021 12/30/2021 12:1 6 AM CDT COVID - 19 05/24/2022 05/29/2022 06/08/2022 12:1 8 AM GLASS BEVELLER COVID - 19 07/12/2022 07/12/2022 07/22/2022 12:1 7 AM GLASS BEVELLER Respiratory Rule Out - RPA 01/14/2023 01/14/2023 0 01/14/2023 1:43 PM CDT COVID - 19 Confirmed 01/14/2023 01/14/2023 023 12:16 AM CDT Respiratory Rule-Out 10/15/2023 10/15/2023 024 1:49 PM CDT COVID - 19 10/15/2023 10/15/2023 10/15/2023 1:48 PM CDT Respiratory Rule-Out 05/21/2024 05/21/2024 024 12:52 PM GLASS BEVELLER COVID - 19 05/21/2024 05/21/2024 05/21/2024 12:5 1 PM GLASS BEVELLER COVID - 19 05/28/2024 05/28/2024 05/28/2024 3:25 PM GLASS BEVELLER Assessment Noted Time PHQ-9 Depression Total Score: 3 08/23/19 22 8:00 AM GLASS BEVELLER documented as of this encounter Care Teams Applied Marine Physics Professor Relationship Specialty Start Date End Date Kiera Salinas, [facility] [address] [place] [address] PCP - General Physician Rn Picu 08/23/21 Susanna Ba APRN, [employer] TOP HELPERS [address] [place] [address] Nurse Practitioner Advanced Practice Nurse 12/24/22 documented as of this encounter
--- OUTSIDE RECORDS SUMMARY | 2024-08-31 16:26 | XMS_ITS | Data Portability ---
Author Organization [facility] Address [address] [place] [address] Care Team Providers Care Produce Field Merchandiser Name Role Phone KYLIE PERERA Primary Care Provider Assessment No assessment recorded. Plan of Treatment Reminders Order Date Submit Date Provider Last Modified By Organization Details Last Modified Time Details Appointments None recorded. Lab None recorded. Referral None recorded. Procedures None recorded. Surgeries None recorded. Imaging None recorded. Medication Orders Diflucan 200 mg tablet 2022 023 [facility][id number], [address] [place], [address], 3 14:21:14 nystatin-t riamcinolo ne 100,000 unit/gram- 0.1 % topical ointment 2022 023 [id number], [address] [place], [address], 3 17:18:36 estradiol 0.01% (0.1 mg/gram) vaginal cream 2022 023 [facility][id number], [address] [place], [address], 3 17:18:37 nystatin-t riamcinolo ne 100,000 unit/gram- 0.1 % topical ointment 2022 023 [facility][id number], [address] [place], [address], 3 15:10:31 estradiol 0.01% (0.1 mg/gram) vaginal cream 2022 023 [email or web address] [facility] #[id number], [address] [place], [address], 3 08:32:36 Patient TargetsNo targets recorded. Patient InstructionsNo instructions recorded. Reason for Referral None Reported. Procedures Surgical History Date Name Laterality Status Provider Name and Address Organization Details Recorded Time 10/08/19 07 partial hysterectomy completed Lainey Garcia [facility] [address], [place], [address], [facility] 10/24/2022 15:15:49 10/08/19 07 procedure on urinary bladder completed Lainey Garcia [facility] [address], [place], [address], [facility] 10/24/2022 15:16:30 Imaging Results None recorded. [...] Updated DateTime 10/24/2022 160.02 cm 27.6 kg/m2 89919.41 g 142 mm[Hg] 84 mm[Hg] Angelina Whitney [facility] 14:54:04 Date Recorded Systolic blood pressure Diastolic blood pressure Provider Name and Address Organization Details Last Updated DateTime 10/24/2022 122 mm[Hg] 76 mm[Hg] Lainey Garcia, [facility] [address], [place], [address], [facility] 11/04/2022 19:51:36 Date Recorded Body height Body mass index (BMI) Body weight Provider Name and Address Organization Details Last Updated DateTime 12/20/2022 160.02 cm 27.8 kg/m2 89422 g Gisel Jade [facility] 12/20/2022 14:07:29 Date Recorded Systolic blood pressure Diastolic blood pressure Provider Name and Address Organization Details Last Updated DateTime 12/20/2022 128 mm[Hg] 76 mm[Hg] Lainey Garcia [facility] [address], [place], [address], [facility] 12/20/2022 17:14:19 Date Recorded Body height Body mass index (BMI) Body weight Provider Name and Address Organization Details Last Updated DateTime 03/15/2023 160.02 cm 28 kg/m2 22468.59 g Gisel Jade [facility] 03/15/2023 14:12:01 Date Recorded Systolic blood pressure Diastolic blood pressure Provider Name and Address Organization Details Last Updated DateTime 03/15/2023 132 mm[Hg] 72 mm[Hg] Lainey Garcia [facility] [address], [place], [address], [facility] 03/15/2023 14:23:53 Social History Question Answer Notes LastModified by Organizat ion Details LastModified Time Tobacco Smoking Status Never Smoker Gisel Yasmany [facility], [facility] 12/20/2022 14:07:58 What Is Your Level [...] COVID-19 While That Case Was Ill? No [email or web address] Information n ot available 10/24/2022 In The 14 Days Before Symptom Onset, Have You Had Close Contact With A Person Who Is Under Investigation For COVID-19 While That Person Was Ill? No [email or web address] Information not available 10/24/2022 Have You Been To An Area Known To Be High Risk For COVID-19? No Information not available 10/24/2022 Are You Deaf Or Do You Have Serious Difficulty Hearing? No Information not available 12/20/2022 What Type Of Diet Are You Following? REGULAR Information n ot available 12/20/2022 What Is The Highest Grade Or Level Of School You Have Completed Or The Highest Degree You Have Received? [id number] Information not available 12/20/2022 What Is Your [...] Anxious, Or Unable To Sleep At Night)? [id number] Information not available 12/20/2022 Do You Use [...] [email or web address] Not available 15:13:04 Mother Secondary infertility [email or web address] Not available 12/06 13:59:42 Paternal Uncle Malignant tumor of colon [email or web address] Not available 15:14:13 Maternal Uncle Heart disease [email or web address] Not available 15:14:32 Maternal Uncle Hypertensive disorder [email or web address] Not available 15:14:49 Maternal Uncle Hypercholest erolemia [email or web address] Not available 15:14:57 Medical History Condition Response Anxiety Disorder Y Allergies (Food, seasonal, environmental ) Y Depression/ depression Y Gynecological History Statement/Question [...] SNOMED-CT Code Diagnosis ICD10 Code Diagnosis Note [id number] ZAHIRA Srinivasan[facility] [address] [address] 10/24/2022 14:11:45 10/25/2022 17:06:23 Atrophic vaginitis 75028011 N95.2 We discussed postmenopa usal atrophic vaginitis/ dryness.Tr ial of Estradol cream was recommende d & open to this suggestion .Counseled on VCG's wtih daily moisturize rs reviewed.S heet given for additional home review. 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 Urinary symptoms [id number] R39.9 Will send urine to ensure UTI has cleared. Vulval irritation 934758 003 N90.89 May use PRN coupled with vag moisturize r of choice for a few days as itch settles. [id number] Lainey Garcia [facility] [address],[place] [address] 12/20/2022 13:59:34 12/20/2022 17:27:21 Atrophic vaginitis [id number] N95.2 Exam showed much improvemen t!Very happy with current progress and regimen.We agreed to continue vag estrogen, VCG's & prn use of mycolog if needed.RF sent Time spent in visit is a total of 15 mins with at least 50% of visit consisting of counseling and review of plan of care. Vulval irritation 155506 003 N90.89 Use PRN sparingly to avoid vulva thinning of skin [id number] Lainey Garcia [facility] [address],[place] [address] 03/15/2023 14:02:19 03/15/2023 14:26:52 Vaginitis [id number] N76.0 Yeast on examRx sent Counseled on [...] Stoll Member ID Guarantor Name 10/24/2022 1 [place] Wendi Neal [id number] Wendi Neal 10/24/2022 1 AETNA - CHOICE (POS II) [id number] Wendi Neal [id number] Wendi Neal 12/20/2022 1 [place] [facility] OF PUBLIC AID Wendi Neal [id number] Wendi Neal 12/20/2022 1 [employer]ETNA - CHOICE (POS II) [id number] Wendi Neal [id number] Wendi Neal 03/15/2023 1 [place] [facility] Wendi Neal [id number] Wendi Neal Notes Date Note Type Note Provider Name and Address Organization Details Recorded Time 10/24/2022 text/html patient is a 56y o post menopausal female here today for chronic vaginal itching on daily basis. Itching worse at night.External/inter nal Neg pain of abd/pelvis/flankNeg urinary sx'sNeg GI sx'sNeg N/V/F/C/DNeg Vag d/c, odor Health hx was reviewd & updated in chart. Lainey Garcia [facility] [address], [place], [address], [facility] 11/04/2022 19:55:05 12/20/2022 text/html Here today for vulva/med check. Lainey Garcia [facility] [address], [place], [address], [facility] 12/20/2022 17:18:56 03/15/2023 text/html Vaginal/Vulvar ProblemReported bypatient.Notes:Here today for vaginal itching, irritation and discharge x 4 days. Neg pain of abd/pelvis/flankNeg urinary sx'sNeg GI sx'sNeg N/V/F/C/DNeg Vag odor Lainey Garcia [facility] [address], [place], [address], [facility] 03/15/2023 14:26:08 OBGyn Episode Ob Episode Information Episode Created Date Number of Fetuses Patient Bloodtype Patient rh Status Prepregnancy Weight lbs Domestic Partner Domestic Partner Phone Father Name Graphite Mill Operator Status 10/25/19 23 1 CLOSED Fetus Data First Name Last Name Admitted to NICU Weight (g) Sex Living Outcome Pediatric Complications Fetus ID Race Codes Race Delivery Type 3997.05 2704 M Full Term 48029 Vaginal Delivery Rodo Calculation Initial Rodo Date Initial Exam Date Initial Exam Provider Initial Ultrasound Date Last Menstrual Period Date Ultra Sound Weeks Gestation 0 Eighteen To Twenty Week Rodo Update Ultra Sound Date Fundal Height At Umbil Quickening Date Ultra Sound Latest Weeks Gestation Final Rood Confirmed By Final Rodo Confirmed Date Final [...] Domestic Partner Domestic Partner Phone Father Name Graphite Mill Operator Status 10/25/19 23 1 CLOSED Fetus Data First Name Last Name Admitted to NICU Weight (g) Sex Living Outcome Pediatric Complications Fetus ID Race Codes Race Delivery Type 3997.05 2704 M Full Term [address]3448 Vaginal Delivery Rodo Calculation Initial Rodo Date [...] Domestic Partner Domestic Partner Phone Father Name Graphite Mill Operator Status 10/25/19 23 1 CLOSED Fetus Data First Name Last Name Admitted to NICU Weight (g) Sex Living Outcome Pediatric Complications Fetus ID Race Codes Race Delivery Type 3203.26 6704 M Full Term [address]10 Vaginal Delivery Rodo Calculation Initial Rodo Date [...] Domestic Partner Domestic Partner Phone Father Name Graphite Mill Operator Status 10/25/19 23 1 CLOSED Fetus Data [...] Domestic Partner Domestic Partner Phone Father Name Graphite Mill Operator Status 10/25/19 23 1 CLOSED Fetus Data First Name Last Name Admitted to NICU Weight (g) Sex Living Outcome Pediatric Complications Fetus ID Race Codes Race Delivery Type 3288.54 2 M Full Term [address]802 Vaginal Delivery Rodo Calculation Initial Rodo Date [...]
== END 2024-08-31 14:30 | disposition home or self-care (01) ==
PROVIDERS: Emergency Provider Nurse Practitioner; PCP Physician Assistant
DX: J22 Unspecified acute lower respiratory infection (principal); Z87.891 Personal history of nicotine dependence; I10 Essential (primary) hypertension; J45.909 Unspecified asthma, uncomplicated; F33.1 Major depressive disorder, recurrent, moderate
CPT/HCPCS: 99213; G0463

== ENCOUNTER 2024-09-07 10:55 | Emergency (ER) | payer OTHER, SELFPAY ==
[2024-09-07 11:09] VITALS: BP 131/73; PULSE 79; RESP 16; TEMP 37; O2SAT 100
--- NOTE | 2024-09-07 11:24 | ED.URI ---
HPI - URI/Sore Throat General Chief Complaint: Upper Respiratory Infection Stated Complaint: cough/sob Time Seen by Provider: 09/07/24 11:26 Source: patient Mode of arrival: ambulatory Limitations: no limitations History of Present Illness HPI Narrative: 58-year-old female presented for complaint of persistent cough for about 3 weeks. Patient has been treated with doxycycline on 08/31/2024, the took the medicine as directed. She has also been using albuterol and nebulizers as directed. She says the cough is productive and she is not going away. Endorses pain with deep breaths. Denies Palpitations, nausea vomiting, diarrhea, fevers or lethargy. Taking [id number] cough syrup. Related Data Home Medications ?Medication ?Instructions ?Recorded ?Confirmed ?Last Taken ?Type albuterol sulfate 90 mcg/actuation 1 puff inhalation Q4H 07/30/19 03/25/20 Unknown History aerosol inhaler (ProAir HFA) buspirone 10 mg tablet mg 08/06/24 Unknown History fluticasone propionate 50 intranasal 08/31/24 Unknown History mcg/actuation nasal spray,suspension omeprazole 20 mg capsule,delayed mg 08/31/24 Unknown History release Allergies Allergy/AdvReac Type Severity Reaction Status Date / Time lorazepam Allergy Unknown Dizziness Verified 08/31/24 14:17 Review of Systems Review of Systems: CONSTITUTIONAL: Denies body aches, fever, chills, or sweats. EYES: Denies visual changes, redness, or discharge. ENT: Denies rhinorrhea, congestion, sore throat, or otalgia. CARDIOVASCULAR: Denies chest pain, palpitations, or edema. RESPIRATORY: Reports cough, sob, wheezing. GASTROINTESTINAL: Denies abdominal pain, nausea, vomiting, or diarrhea. NEUROLOGIC: Denies headache, numbness, tingling, or weakness. All systems reviewed & are unremarkable except as noted in HPI and below PMFSH Past Medical History Medical History Dysfunction of both eustachian tubes Essential (primary) hypertension MDD (major depressive disorder), recurrent episode, moderate Mild persistent asthma with allergic rhinitis without complication Pollen allergies Psychophysiological insomnia Family History Family History Father Patient's father is , Onset Age: 57 Mother Family history of cardiovascular disease, Onset Age: 56 Social History Social History Social History: Smoking packs per day: 1.5 Smoking cigarettes per day: 30.0 Years smoked: 5 Smoking pack-years: 7.50 Smoking status: Former smoker Tobacco type: cigarettes Second hand tobacco smoke exposure: No Alcohol intake: never Substance use: never Substance use type: does not use Living arrangements: with family Occupation/Education: occupation Gender identity (if verbalized by the patient): Female Sexual Orientation (if Verbalized by the Patient): Straight or Heterosexual Comments At time of signature, I have reviewed and agree with nursing past medical, surgical, social and family history unless otherwise noted. Please see nursing chart for further information. There is no relevant family history pertinent to the presenting complaint Exam Narrative: GENERAL: Well-appearing, in no acute distress. EYES: EOMI. No redness or drainage. Conjunctivae normal. ENT: Mucous membranes pink and moist. No rhinorrhea. TMs normal bilaterally. Throat normal. Uvula midline. NECK: Normal AROM. Supple. CHEST: No respiratory distress. lungs clear to all [place]ak. HEART: Regular rate and rhythm. No murmur appreciated. SKIN: Warm, dry, no rash. Capillary refill normal. Normal skin turgor. NEURO: Alert and oriented x3. Gait steady. PSYCH: Normal affect. Course Course Emergency Course: Patient is aware of diagnosis, understands and agrees to treatment plan. Anticipatory guidance given. Patient agrees to follow-up as directed and is aware of reasons to seek care at the emergency department. Portions of this record may have been created with voice recognition software Level of Care: Express Care Visit Vital Signs Vital signs: Vital Signs Temperature 98.6 F 09/07/24 11:09 Pulse Rate 79 09/07/24 11:09 Respiratory Rate 16 09/07/24 11:09 Blood Pressure 131/73 09/07/24 11:09 Pulse Oximetry 100 09/07/24 11:09 Oxygen Delivery Room Air 09/07/24 11:09 Temperature 98.6 F 09/07/24 11:09 Pulse Rate 79 09/07/24 11:09 Respiratory Rate 16 09/07/24 11:09 Blood Pressure 131/73 09/07/24 11:09 Pulse Oximetry 100 09/07/24 11:09 Oxygen Delivery Room Air 09/07/24 11:09 MDM - URI/Sore Throat MDM Narrative Medical decision making narrative: Discussed physical exam findings and Rx. Declined CXR. Advised supportive measures and signs/symptoms to go to the ER. Pt is appropriate for outpt treatment and f/u. Differential Diagnosis Differential diagnosis: Likely upper respiratory infection, viral infection, bronchitis and other Discharge Plan Discharge Clinical Impression: Bronchitis Patient Disposition: Home, Self-Care Condition: Stable Instructions: Antibiotic Form, Acute Bronchitis (ED) Additional Instructions: Acute bronchitis can be contagious because it is usually caused by infection with a virus or bacteria. It is usually for a few days but you can be contagious for up to one week. Avoid crowds until you do not have a fever and symptoms are improved Take medication as directed Recommendations: Flonase spray and Zyrtec (or Claritin/Carmen) over the counter Cough syrup may cause drowsiness; avoid driving or take it at night time. Tylenol 1000mg every 8 hours as needed for pain Symptomatic treatment includes: rest, fluids, and increase humidity of the air at home. Follow up with your primary care provider as needed in 1 week Go to the ER for worsening symptoms or concerns Patient Language: Indonesian Prescriptions: New methylprednisolone [Medrol (Silver)] 4 mg tablets,dose pack See Rx Instructions .ROUTE .COMPLEX Qty: 21 0RF Rx Instructions: orally per package directions No Action buspirone 10 mg tablet omeprazole 20 mg capsule,delayed release(DR/EC) fluticasone propionate 50 mcg/actuation spray,suspension INTRANASAL albuterol sulfate 2.5 mg /3 mL (0.083 %) solution for nebulization 2.5 mg inhalation Q4H PRN (Reason: shortness of breath or wheezing) Qty: 75 0RF albuterol sulfate [ProAir HFA] 90 mcg/actuation HFA aerosol inhaler 1 puff INHALATION Q4H atorvastatin 40 mg tablet 40 mg PO DAILY Qty: 90 3RF azelastine 137 mcg (0.1 %) aerosol,spray 1 spray INTRANASAL Q12H Qty: 30 3RF famotidine 20 mg tablet 20 mg PO DAILY Qty: 90 2RF hydrochlorothiazide 12.5 mg tablet 12.5 mg PO DAILY Qty: 90 2RF terbutaline 5 mg tablet 5 mg PO TID Qty: 90 5RF montelukast [Singulair] 10 mg tablet 10 mg PO DAILY Qty: 90 3RF trazodone 100 mg tablet 100 mg PO .QHS Qty: 90 2RF metronidazole 500 mg tablet 500 mg PO Q12H Qty: 14 0RF famotidine [Pepcid] 20 mg tablet 20 mg PO BID Qty: 20 0RF loratadine [Claritin] 10 mg tablet 10 mg PO DAILY PRN (Reason: allergy symptoms) Qty: 10 0RF promethazine 25 mg tablet 25 mg PO Q6H PRN (Reason: nausea and vomiting) Qty: 7 0RF amlodipine 5 mg tablet 5 mg PO DAILY Qty: 90 1RF fluoxetine 10 mg tablet 15 mg PO DAILY Qty: 135 2RF budesonide-formoterol [Symbicort] 160-4.5 mcg/actuation HFA aerosol inhaler 2 puff INHALATION Q12H Qty: 10.2 4RF buspirone 5 mg tablet 5 mg PO TID Qty: 90 0RF Follow-up/Referrals: Brad,DAGMAR Qureshi [Primary Care Provider] -
== END 2024-09-07 12:06 | disposition home or self-care (01) ==
PROVIDERS: Emergency Provider Nurse Practitioner Family; PCP Physician Assistant
DX: J40 Bronchitis, not specified as acute or chronic (principal); Z87.891 Personal history of nicotine dependence; I10 Essential (primary) hypertension; J45.909 Unspecified asthma, uncomplicated
CPT/HCPCS: 71046; 99213; G0463